=== PATIENT | female | born 1960 | race African-American/Black ===

== ENCOUNTER 2016-07-30 06:46 | Emergency (ER) | payer BC ==
[~2016-07-30] VITALS: Ht 162.6 cm; Wt 126.0 kg
[~2016-07-30 06:46] MED LIST: ALBU1AER9 INH; ATOR-24 PO; BENZ1CAP90 PO; BUDESUS NAE; GLC/500 PO; HYDR25TA4 PO; IPRA1AER2 INH; IPRASOL4 INH; LOSA50TA6 PO; MONT1TAB5 PO; NRV/10 PO; OXGN; OXYC1TAB3 PO; PANT1TAB48 PO
[2016-07-30 06:50] VITALS: Ht 162.6 cm; Wt 126.0 kg
[2016-07-30] MEDS ORDERED: METH750T PO (07:16)
[2016-07-30] MEDS ORDERED: TRAM-10 PO (07:17)
[2016-07-30] MEDS ORDERED: KETOROLAC TROMETHAMINE 60 MG/2 ML VIAL IM STA (07:19)
[2016-07-30] MEDS ORDERED: QVAR 40MCG INH (07:19)
--- NOTE | 2016-07-30 07:35 | EMERGENCY ROOM VISIT NOTE ---
History Report prepared by Justus: Elena Zavala Under the Supervision of: Dr. Randal Dior M.D. First contact with patient: 07:14 Chief Complaint: KNEEPAIN Stated Complaint: KNEE PAIN-BOTH KNEES -RIGHT IS THE WORST History of Present Illness The patient is a 56 year old female who presents to the Emergency Room with complaints of persistent, right knee pain that began six months ago, but has recently been worsening. She currently rates her discomfort as a 10/10 in severity. The patient states that she had a mass to her right leg that has been growing for the past two years. She states that she had the mass evaluated by a doctor at [facility] and notes that she had an MRI. The patient states that there were not malignancies found in the mass, but states that it has added weight to her right knee. She states that the pain has been worsening for the past six months. The patient states that she had discussion with her doctors about possible surgery to remove the mass, but states that with her history of diabetes, the doctors feel that she is at a higher risk. She states that the doctors want her to lose more weight but notes that it has been difficult due to difficulties ambulating. The patient states that the doctors plan to reevaluate the situation in October and is scheduled to see a plastic surgeon. She states that the increased weight is causing pain to her right knee and additionally notes that she is unsure of her history of arthritis. The patient states that she could not go to work today due to the pain. She denies any difficulty urinating. The patient states that she tried taking Excedrin for her discomfort today without relief, and states that she previously was on oxycodone for her back, but states that she wishes to not have any narcotic pain medications. Source of History: patient Onset: six months ago Position: knee (right) Symptom Intensity: 10/10 Timing: worsening, other (persistent) Modifying Factors (Worsening): other (mass to right thigh) Review of Systems All systems have been listed, reviewed, and are negative other than those previously mentioned. Please see Additional Medical History Sheet. Past Medical & Surgical Medical Problems: (1) Asthma (2) Asthma exacerbation (3) Diabetes (4) Hypertension (5) Pneumonia Family History Cancer Diabetes mellitus Hypertension Social History Smoking Status: Never Smoker Alcohol Use: none Drug Use: none Marital Status: Housing Status: lives with significant other Occupation Status: employed Current/Historical Medications Scheduled Amlodipine Besylate (Amlodipine Besy), 5 MG PO DAILY Atorvastatin (Lipitor), 40 MG PO DAILY Budesonide (Rhinocort Aq Nasal ), 2 SPRAY CECIILA DAILY Hydrochlorothiazide (Hctz), 25 MG PO DAILY Ipratropium-Albuterol (Combivent Respimat), 1 PUFF INH QID Losartan Potassium (Cozaar), 50 MG PO DAILY Metformin Hcl (Glucophage), 500 MG PO BID Methocarbamol (Robaxin), 750 MG PO DAILY Montelukast Sodium (Montelukast Sodium), 10 MG PO HS Oxygen (Oxygen), 2 LITERS NA HS Pantoprazole (Protonix), 40 MG PO DAILY [Qvar 40MCG], 2 PUFF INH BID Scheduled PRN Benzonatate (Tessalon Perles), 200 MG PO TID PRN for Cough Ibuprofen Tab (Motrin), 600 MG PO Q6H PRN for Pain Ipratropium-Albuterol (Duoneb), 1 TREATMENT INH QID PRN for SOB/Wheezing Tramadol (Ultram), 50 MG PO Q6H PRN for Pain Allergies Coded Allergies: Penicillins (Verified Allergy, Mild, RASH, 09/10/15) Physical Exam Vital Signs Date Time Temp Pulse Resp B/P Pulse Ox O2 Delivery O2 Flow Rate FiO2 07/30/16 08:48 36.9 66 20 129/75 99 07/30/16 08:21 66 20 129/75 99 Room Air 07/30/16 06:50 36.9 108 18 110/59 95 Room Air Physical Exam GENERAL: Patient awake, alert, oriented x 3. Patient follows commands. Patient does not appear toxic. Patient is adequately hydrated and well- nourished. SKIN: No erythema, pallor, cyanosis or rash HEENT: Normal head, pupils equal, reactive to light and accommodation. EXTREMITIES: Huge mass extending off upper right thigh that is hard and firm, but no drainage. Full range of motion of right knee with minimal pain. No inflammation or swelling. Some pain with movement. NEUROLOGIC: Cranial nerves II-XII within normal limits. No gross motor sensory function deficits. Medical Decision & Procedures ER Provider Diagnostic Interpretation: X ray results are stated below per my interpretation and the radiologist's interpretation. RIGHT KNEE 1 OR 2 VIEWS ROUTINE CLINICAL HISTORY: knee pain Right COMPARISON STUDY: None. FINDINGS: No acute fracture dislocation within the right knee. Severe tricompartmental osteoarthritis demonstrated by cartilage space narrowing and large marginal osteophytes. There is anterior soft tissue swelling. No significant knee effusion. IMPRESSION: 1. Severe tricompartmental osteoarthritis within the right knee. 2. No acute fracture or dislocation. 3. Anterior soft tissue swelling. 4. No significant knee effusion. Electronically signed by: Ramiro Rodrigues M.D. 07/30/2016 7:53 AM Dictated Date/Time: 07/30/2016 7:51 AM Medications Administered Medications (Trade) Dose Ordered Sig/Polo Route Start Time Stop Time Status Last Admin Dose Admin Ketorolac Tromethamine (Toradol Inj) 60 mg NOW STAT IM 07/30/16 07:19 07/30/16 07:21 DC 07/30/16 07:26 60 MG ED Course 0714: Past medical records reviewed. The patient was evaluated in room A10. A complete history and physical examination was performed. 0719: Ordered Toradol Inj 60 mg IM. 0836: I reevaluated the patient and she is feeling much better after the shot of Toradol. I discussed the exam findings with her and I discussed the treatment plan. She verbalized complete understanding and agreement. She is ready to go home. Medical Decision Nurses notes reviewed. Medical history sheet reviewed. Differential diagnosis includes but is not limited to: degenerative joint disease, sprain, meniscal injury, mass on right leg. The patient has a huge mass extending off of the upper right leg which is chronic. X-ray reveals significant arthritis of the right knee. She did get good relief from IM Toradol. She will be maintained on ibuprofen at home. Also the patient will require excision of this mass which is complicating her osteoarthritis. At some point in the future she may also need a knee replacement. I discussed these options with the patient and her . Impression Primary Impression: Osteoarthritis of right knee Scribe Attestation The scribe's documentation has been prepared under my direction and personally reviewed by me in its entirety. I confirm that the note above accurately reflects all work, treatment, procedures, and medical decision making performed by me. Departure Information Dispostion Home / Self-Care Prescriptions Ibuprofen Tab (MOTRIN) 600 Mg Tab 600 MG PO Q6H Y for Pain, #40 TAB Prov: Ziff, Randal,M.D. 07/30/16 Referrals KT QUINTERO M.D. (PCP) Forms HOME CARE DOCUMENTATION FORM, IMPORTANT VISIT INFORMATION, Work Instructions Patient Instructions A Signature Page, [facility] Additional Instructions 600 mg of ibuprofen every 6 hours as needed for right knee pain. Follow-up with your family physician. Follow-up with your surgeon at [facility]. Work Instructions Return To Work: 3 days Specific Date: 08/02/16
--- NOTE | 2016-07-30 07:55 | DIAGNOSTIC IMAGING REPORT ---
RIGHT KNEE 1 OR 2 VIEWS ROUTINE CLINICAL HISTORY: knee pain Right COMPARISON STUDY: None. FINDINGS: No acute fracture dislocation within the right knee. Severe tricompartmental osteoarthritis demonstrated by cartilage space narrowing and large marginal osteophytes. There is anterior soft tissue swelling. No significant knee effusion. IMPRESSION: 1. Severe tricompartmental osteoarthritis within the right knee. 2. No acute fracture or dislocation. 3. Anterior soft tissue swelling. 4. No significant knee effusion. Electronically signed by: Ramiro Rodrigues M.D. 07/30/2016 7:53 AM Dictated Date/Time: 07/30/2016 7:51 AM
[2016-07-30] MEDS ORDERED: IBUP-1427 PO (08:44)
[2016-07-30 08:48] VITALS: BP 129/75; PULSE 66; TEMP 36.9; O2SAT 99
[2017-02-23] MEDS ORDERED: FURO-85 PO (08:23)
[2017-04-16] MEDS ORDERED: SULF800T23 PO (09:59)
== END 2016-07-30 08:48 | disposition home or self-care (01) ==
LOC: C.EDB 06:48 → C.EDA 08:48
DX: M17.11 Unilateral primary osteoarthritis, right knee (principal); E11.9 Type 2 diabetes mellitus without complications; J45.901 Unspecified asthma with (acute) exacerbation; I10 Essential (primary) hypertension; R22.41 Localized swelling, mass and lump, right lower limb; Z79.84 Long term (current) use of oral hypoglycemic drugs; Z79.899 Other long term (current) drug therapy

== ENCOUNTER 2016-08-26 06:44 | Emergency (ER) | payer BC ==
[~2016-08-26] VITALS: Ht 162.6 cm; Wt 128.0 kg
[~2016-08-26 06:44] MED LIST changes: -ALBU1AER9 INH; +IBUP-1427 PO; +METH750T PO; -OXYC1TAB3 PO; +QVAR 40MCG INH; +TRAM-10 PO
[2016-08-26 06:51] VITALS: TEMP 37; Ht 162.6 cm; Wt 128.0 kg
[2016-08-26] MEDS ORDERED: ALUMINUM/MAGNESIUM SUSP 30 ML UDC PO STA (07:35)
[2016-08-26] MEDS ORDERED: SODIUM CHLORIDE 0.9% 1000ML 1,000 ML IV STA (07:35)
[2016-08-26] MEDS ORDERED: LIDOCAINE HCL 2% VISC SOLN 20 ML UDC MT STA (07:35)
[2016-08-26] MEDS ORDERED: SODIUM CHLORIDE 0.9% 1000ML 250 ML IV STA (07:35)
--- NOTE | 2016-08-26 07:36 | EMERGENCY ROOM VISIT NOTE ---
History Report prepared by Antonioibhardik: Missy Rodriguez Under the Supervision of: Dr. Fred Sainz M.D. First contact with patient: 06:58 Chief Complaint: ABDOMINAL PAIN Stated Complaint: STOMACH PAIN,CHILLS,FLU-LIKE SYMPTOMSA History of Present Illness The patient is a 56 year old female who presents to the Emergency Room with complaints of intermittent lower abdominal pain for the past 1 week. She is accompanied by her . She rates her discomfort as an 8/10. She reports she takes the Tramadol for a history of left shoulder and right knee arthritic pain and states "ever since I've been on pain medications, my stomach has been upset". She has been experiencing abdominal pain for approximately the past 12 weeks, but states in the past week, her pain has worsened. When she does not use Tramadol, she uses Ibuprofen, but notes "it doesn't provide much relief". The patient complains of nausea, but denies any vomiting or diarrhea. She denies any recent changes to her other medications. She denies any history of previous abdominal surgeries. She admits to some recent chills and flu-like symptoms, but denies any fevers, shortness of breath, chest pain, urinary symptoms or pain or swelling in her legs. Source of History: patient Onset: 1 week [employer] Position: abdomen Symptom Intensity: 8/10 Timing: intermittent Modifying Factors (Worsening): other (use of Tramadol) Associated Symptoms: + chills, + nausea, No SOB, No chest pain, No diarrhea , No fevers, No urinary symptoms, No vomiting Review of Systems See HPI for pertinent positives & negatives. A total of 10 systems reviewed and were otherwise negative. Past Medical & Surgical Medical Problems: (1) Asthma (2) Asthma exacerbation (3) Diabetes (4) Hypertension (5) Pneumonia Family History Cancer Diabetes mellitus Hypertension Social History Smoking Status: Never Smoker Alcohol Use: none Drug Use: none Marital Status: Housing Status: lives with significant other Occupation Status: employed Current/Historical Medications Scheduled Amlodipine Besylate (Amlodipine Besylate), 5 MG PO DAILY Atorvastatin (Lipitor), 40 MG PO DAILY Beclomethasone Dip (Qvar), 1 PUFF INH BID Budesonide (Nasal) (Rhinocort Allergy), 2 SPRAYS CECILIA DAILY Hydrochlorothiazide (Hctz), 25 MG PO DAILY Ipratropium-Albuterol (Combivent Respimat), 1 PUFF INH QID Losartan Potassium (Cozaar), 50 MG PO DAILY Metformin Hcl (Glucophage), 500 MG PO BID Methocarbamol (Robaxin), 750 MG PO DAILY Montelukast Sodium (Montelukast Sodium), 10 MG PO HS Oxygen (Oxygen), 2 LITERS NA HS Pantoprazole (Protonix), 40 MG PO DAILY Scheduled PRN Benzonatate (Tessalon Perles), 200 MG PO TID PRN for Cough Ibuprofen Tab (Motrin), 600 MG PO Q6H PRN for Pain Ipratropium-Albuterol (Duoneb), 1 TREATMENT INH QID PRN for SOB/Wheezing Oxycodone Ir (Roxicodone Ir), 1-2 TAB PO Q4H PRN for Severe Pain Tramadol (Ultram), 50 MG PO Q6H PRN for Pain Allergies Coded Allergies: Penicillins (Verified Allergy, Mild, RASH, 08/26/16) Latex1 -Allergic Contact Dermititis (Verified Allergy, Unknown, rash, ) Physical Exam Vital Signs Date Time Temp Pulse Resp B/P Pulse Ox O2 Delivery O2 Flow Rate FiO2 08/26/16 11:52 68 20 128/70 98 08/26/16 10:28 72 20 122/75 96 Room Air 08/26/16 08:23 66 20 138/76 100 Room Air 08/26/16 06:51 37.0 66 16 149/87 100 Room Air Physical Exam General: Non-ill appearing middle aged female, well developed, well nourished, in no acute distress, breathing comfortably on room air. Normal speech. HEENT: Normal cephalic atraumatic. Pupils are equal round and reactive to light. Extraocular movements are intact. Oropharynx is pink with moist mucous membranes. No swelling of the mouth lips or tongue. Neck: Supple with a midline trachea. No meningeal signs or stiffness, no JVD or bruits. No Stridor. Chest: Clear to auscultation bilaterally. No wheezes or rhonchi. No increased work of breathing. Heart: regular rate and rhythm. Abdomen: Soft, minimal tenderness around umbilicus, nondistended without rebound guarding or rigidity. Extremities: No cyanosis clubbing or edema. No calf tenderness or assymetry Spine/Back. Non tender to palpation. No CVA tenderness Skin: Good turgor without rashes. Neurologic exam: Cranial nerves two through 12 are intact. Motor and sensation are intact and symmetrical throughout. Medical Decision & Procedures ER Provider Diagnostic Interpretation: This CT scan was reviewed and interpreted by the radiologist and reviewed by myself. ABDOMEN AND PELVIS CT WITH IV CONTRAST IMPRESSION: 1. 5 cm right ovarian cyst. 2. Fibroid-type uterus with the largest measuring 4 cm. 3. Nonobstructive bowel pattern. 4. Slight body wall anasarca Electronically signed by: Elmo Buchanan M.D. 08/26/2016 9:28 AM Laboratory Results 08/26/16 07:58 Red Blood Count 4.29, Mean Corpuscular Volume 85.8, Mean Corpuscular Hemoglobin 28.0, Mean Corpuscular Hemoglobin Concent 32.6, Mean Platelet Volume 10.3, Neutrophils (%) (Auto) 69.8, Lymphocytes (%) (Auto) 20.0, Monocytes (%) (Auto) 7.9, Eosinophils (%) (Auto) 1.7, Basophils (%) (Auto) 0.4, Neutrophils # (Auto) 3.29, Lymphocytes # (Auto) 0.94, Monocytes # (Auto) 0.37, Eosinophils # (Auto) 0.08, Basophils # (Auto) 0.02 08/26/16 07:58 Test 08/26/16 07:58 08/26/16 08:00 08/26/16 08:10 White Blood Count 4.71 K/uL (4.8-10.8) Red Blood Count 4.29 M/uL (4.2-5.4) Hemoglobin 12.0 g/dL (12.0-16.0) Hematocrit 36.8 % (37-47) Mean Corpuscular Volume 85.8 fL (80-100) Mean Corpuscular Hemoglobin 28.0 pg (25-34) Mean Corpuscular Hemoglobin Concent 32.6 g/dl (32-36) Platelet Count 234 K/uL (130-400) Mean Platelet Volume 10.3 fL (7.4-10.4) Neutrophils (%) (Auto) 69.8 % Lymphocytes (%) (Auto) 20.0 % Monocytes (%) (Auto) 7.9 % Eosinophils (%) (Auto) 1.7 % Basophils (%) (Auto) 0.4 % Neutrophils # (Auto) 3.29 K/uL (1.4-6.5) Lymphocytes # (Auto) 0.94 K/uL (1.2-3.4) Monocytes # (Auto) 0.37 K/uL (0.11-0.59) Eosinophils # (Auto) 0.08 K/uL (0-0.5) Basophils # (Auto) 0.02 K/uL (0-0.2) RDW Standard Deviation 49.0 fL (36.4-46.3) RDW Coefficient of Variation 15.4 % (11.5-14.5) Immature Granulocyte % (Auto) 0.2 % Immature Granulocyte # (Auto) 0.01 K/uL (0.00-0.02) Anion Gap 11.0 mmol/L (3-11) Est Creatinine Clear Calc Drug Dose 135.0 ml/min Estimated GFR () 116.6 Estimated GFR (Non- 100.6 BUN/Creatinine Ratio 13.6 (10-20) Calcium Level 8.9 mg/dl (8.5-10.1) Total Bilirubin 0.7 mg/dl (0.2-1) Direct Bilirubin 0.2 mg/dl (0-0.2) Aspartate Amino Transf (AST/SGOT) 12 U/L (15-37) Alanine Aminotransferase (ALT/SGPT) 14 U/L (12-78) Alkaline Phosphatase 62 U/L (45-117) Total Protein 7.3 gm/dl (6.4-8.2) Albumin 3.5 gm/dl (3.4-5.0) Lipase 86 U/L (73-393) Urine Color YELLOW Urine Appearance CLEAR (CLEAR) Urine pH 7.0 (4.5-7.5) Urine Specific [place] 1.013 (1.000-1.030) Urine Protein NEG (NEG) Urine Glucose (UA) NEG (NEG) Urine Ketones NEG (NEG) Urine Occult Blood NEG (NEG) Urine Nitrite NEG (NEG) Urine Bilirubin NEG (NEG) Urine Urobilinogen NEG (NEG) Urine Leukocyte Esterase NEG (NEG) Bedside Troponin I 0.030 ng/ml (0-0.045) Date/Time Source Procedure Growth Status 08/26/16 08:00 Urine , Clean Catch Urine Culture - Final MORE THAN THREE TYPES OF ORGANISMS CA... Complete Laboratory studies as stated above per my review. Medications Administered Medications (Trade) Dose Ordered Sig/Polo Route Start Time Stop Time Status Last Admin Dose Admin Sodium Chloride 250 ml @ 999 mls/hr Q16M STAT IV 08/26/16 07:35 08/26/16 07:50 DC 08/26/16 07:35 999 MLS/HR Sodium Chloride (Nss 1000ml) 1,000 ml @ 100 mls/hr Q10H STAT IV 08/26/16 07:35 08/26/16 12:38 DC 08/26/16 07:35 100 MLS/HR Al Hydroxide/Mg Hydroxide (Maalox Susp) 30 ml NOW STAT PO 08/26/16 07:35 08/26/16 07:38 DC 08/26/16 08:23 30 ML Lidocaine HCl (Viscous Lidocaine 2% Soln) 10 ml NOW STAT MT 08/26/16 07:35 08/26/16 07:38 DC 08/26/16 07:35 10 ML ECG Indication: abdominal pain Rate (beats per minute): 64 Rhythm: normal sinus (normal sinus rhythm) Findings: no acute ischemic change, other (Low voltage QRS, poor R-wave progression) Comparison ECG Date: Compared to EKG from September 10, 2015, rate has decreased ED Course 0728: Past medical records reviewed. The patient was evaluated in room A3, and a complete history and physical examination were performed. 1108: I reevaluated the patient. She is feeling well and resting comfortably. Medical Decision Differential Diagnoses: GERD, colitis, pancreatitis, gallbladder disease, UTI and peptic ulcer disease. This patient comes in as described above. She's had some epigastric abdominal pain. She's had a burning sensation. She is on a proton pump inhibitor but does not take it regularly. She is taking a fair amount of pain medication for her hip and joints. She takes Ultram and ibuprofen. Multiple blood testing was obtained. She has nothing to suggest infection or sepsis. CAT scan was unremarkable she has nothing to suggest acute cardiac event or ischemia. I encouraged her to take her to take her proton pump inhibitor regularly and to try to minimize the Ultram and ibuprofen. Follow up with her regular doctor in 1-2 days for recheck. Return if: increasing pain, worsening of symptoms, fever chills, any problems concerns. She is happy plan and discharged to home. Impression Primary Impression: Epigastric abdominal pain Scribe Attestation The scribe's documentation has been prepared under my direction and personally reviewed by me in its entirety. I confirm that the note above accurately reflects all work, treatment, procedures, and medical decision making performed by me. Departure Information Dispostion Home / Self-Care Referrals KT QUINTERO M.D. (PCP) Patient Instructions My [facility] Additional Instructions Rest. Drink plenty of fluids. Mild diet. Ensure that you're taking her Protonix once a day. This will help decrease her acid May use [id number] Maalox or Tums or other antacids Try taking medicine with food May use Tylenol (acetaminophen)-a maximum of 2 pills (650 mg) every 6 hours. Ensure you do not take this with any other medications containing acetaminophen/ Tylenol Follow-up with your doctor early this week for recheck. You may ultimately need to see a GI specialist if her symptoms persist or worsen. Return to the ER any point if symptoms worsen, increasing pain, fever or chills , worsening of symptoms, any new problems or concerns.
[2016-08-26 08:11] LABS: BASO % 0.4 %; BASO ABS # 0.02 K/uL (0-0.2); COMPLETE YES; EOS % 1.7 %; HEMATOCRIT 36.8 % (37-47); IG% 0.2 %; LYMPH ABS # 0.94 K/uL (1.2-3.4); MEAN CELL VOLUME 85.8 fL (80-100); MEAN CORPUSCULAR HGB CONC 32.6 g/dl (32-36); MEAN PLATELET VOLUME 10.3 fL (7.4-10.4); MONO % 7.9 %; NEUT % 69.8 %; PLATELET COUNT 234 K/uL (130-400); RED BLOOD COUNT 4.29 M/uL (4.2-5.4); WHITE BLOOD COUNT 4.71 K/uL (4.8-10.8)
[2016-08-26 08:30] LABS: URINE APPEARANCE CLEAR (CLEAR); URINE BILIRUBIN NEG (NEG); URINE COLOR YELLOW; URINE NITRITE NEG (NEG); URINE SPECIFIC GRAVITY 1.013 (1.000-1.030); UROBILINOGEN NEG (NEG)
[2016-08-26] MEDS ORDERED: QVRINH40 INH (08:31)
[2016-08-26] MEDS ORDERED: BUDE1SUS8 NAE (08:31)
[2016-08-26] MEDS ORDERED: NRV/5 PO (08:31)
[2016-08-26 08:42] LABS: BUN/CREATININE RATIO 13.6 (10-20); CREATININE 0.61 mg/dl (0.60-1.20)
[2016-08-26 08:45] LABS: POTASSIUM 3.6 mmol/L (3.5-5.1)
[2016-08-26 08:46] LABS: CALCIUM 8.9 mg/dl (8.5-10.1)
[2016-08-26 08:50] LABS: MANUAL MICROSCOPIC REQUIRED? NO; REVIEW REQ? NO
[2016-08-26] MEDS ORDERED: OPTIRAY 320 IV PRN (09:00)
--- NOTE | 2016-08-26 09:30 | DIAGNOSTIC IMAGING REPORT ---
ABDOMEN AND PELVIS CT WITH IV CONTRAST CT DOSE: 1104.92 mGy.cm HISTORY: Pain eval for diverticulitis, colitis TECHNIQUE: Multiaxial CT images of the abdomen and pelvis were performed following the use of intravenous contrast. COMPARISON STUDY: 11/17/2013 FINDINGS: Minimal dependent basilar atelectasis. Liver is uniform. Spleen and pancreas are unremarkable. Kidneys enhance uniformly. No evidence for hydronephrosis. Small fat-containing periumbilical hernia unchanged. This is a nonobstructive finding. Fibroid-type uterus. 5 cm right ovarian cyst. Bladder is midline. No free fluid within the cul-de-sac. Inguinal regions are unremarkable. Slight body wall anasarca. This is diminished in the prior study. IMPRESSION: 1. 5 cm right ovarian cyst. 2. Fibroid-type uterus with the largest measuring 4 cm. 3. Nonobstructive bowel pattern. 4. Slight body wall anasarca Electronically signed by: Elmo Buchanan M.D. 08/26/2016 9:28 AM Dictated Date/Time: 08/26/2016 9:25 AM
[2016-08-26 11:52] VITALS: BP 128/70; PULSE 68; O2SAT 98
[2017-02-23] MEDS ORDERED: FURO-85 PO (08:23)
[2017-04-16] MEDS ORDERED: SULF800T23 PO (09:59)
== END 2016-08-26 11:54 | disposition home or self-care (01) ==
LOC: C.EDB 06:45 → C.EDA 11:54
DX: R10.13 Epigastric pain (principal); J45.909 Unspecified asthma, uncomplicated; I10 Essential (primary) hypertension; E11.9 Type 2 diabetes mellitus without complications

== ENCOUNTER 2016-08-28 05:36 | Emergency (ER) | payer BC ==
[~2016-08-28] VITALS: Ht 162.6 cm; Wt 129.1 kg
[~2016-08-28 05:36] MED LIST changes: +BUDE1SUS8 NAE; -BUDESUS NAE; -NRV/10 PO; +NRV/5 PO; -QVAR 40MCG INH; +QVRINH40 INH
[2016-08-28 05:41] VITALS: TEMP 36.7; Ht 162.6 cm; Wt 129.1 kg
[2016-08-28] MEDS ORDERED: KETOROLAC TROMETHAMINE 30 MG/ML VIAL IV STA (06:23)
[2016-08-28] MEDS ORDERED: HYDROmorphone INJ 2 MG/ML SYR/VIAL IV STA (06:23)
--- NOTE | 2016-08-28 06:24 | EMERGENCY ROOM VISIT NOTE ---
History Report prepared by Justus: Martin Carmona Under the Supervision of: Dr. Valentine Paredes D.O. First contact with patient: 05:45 Chief Complaint: HIP PAIN Stated Complaint: EXCRUCIATING PAIN IN HIP,DOWN TO KNEE ON RT SIDE History of Present Illness The patient is a 56 year old female who presents to the Emergency Room with complaints of worsening right hip pain that began a week ago. She awoke this morning crying from the pain that she states is very severe. The patient has a large soft tissue mass on her right inner thigh. Her surgeon told her that before they remove it, she should try to lose some weight. The patient lost some weight, but she feels like the growth is weighing her down significantly and exacerbating her arthritis in her right knee and giving her worst pain in her right hip. The patient has been having nausea and vomiting from the pain. She denies any rash or diarrhea. Source of History: patient Onset: a week ago Position: other (right hip) Symptom Intensity: severe Quality: ache Timing: worsening Associated Symptoms: + back pain, + nausea, + vomiting, No diarrhea, No rash Review of Systems See HPI for pertinent positives & negatives. A total of 10 systems reviewed and were otherwise negative. Past Medical & Surgical Medical Problems: (1) Asthma (2) Asthma exacerbation (3) Diabetes (4) Hypertension (5) Pneumonia Family History Cancer Diabetes mellitus Hypertension Social History Smoking Status: Never Smoker Alcohol Use: none Drug Use: none Marital Status: Housing Status: lives with significant other Occupation Status: employed Current/Historical Medications Scheduled Amlodipine Besylate (Amlodipine Besylate), 5 MG PO DAILY Atorvastatin (Lipitor), 40 MG PO DAILY Beclomethasone Dip (Qvar), 1 PUFF INH BID Budesonide (Nasal) (Rhinocort Allergy), 2 SPRAYS CECILIA DAILY Hydrochlorothiazide (Hctz), 25 MG PO DAILY Ipratropium-Albuterol (Combivent Respimat), 1 PUFF INH QID Losartan Potassium (Cozaar), 50 MG PO DAILY Metformin Hcl (Glucophage), 500 MG PO BID Methocarbamol (Robaxin), 750 MG PO DAILY Montelukast Sodium (Montelukast Sodium), 10 MG PO HS Oxygen (Oxygen), 2 LITERS NA HS Pantoprazole (Protonix), 40 MG PO DAILY Scheduled PRN Benzonatate (Tessalon Perles), 200 MG PO TID PRN for Cough Ibuprofen Tab (Motrin), 600 MG PO Q6H PRN for Pain Ipratropium-Albuterol (Duoneb), 1 TREATMENT INH QID PRN for SOB/Wheezing Oxycodone Ir (Roxicodone Ir), 1-2 TAB PO Q4H PRN for Severe Pain Tramadol (Ultram), 50 MG PO Q6H PRN for Pain Allergies Coded Allergies: Penicillins (Verified Allergy, Mild, RASH, 08/26/16) Latex1 -Allergic Contact Dermititis (Verified Allergy, Unknown, rash, ) Physical Exam Vital Signs Date Time Temp Pulse Resp B/P Pulse Ox O2 Delivery O2 Flow Rate FiO2 08/28/16 07:21 70 18 144/76 93 Room Air 08/28/16 06:11 60 18 137/80 99 Room Air 08/28/16 05:41 36.7 62 18 148/90 99 Room Air Physical Exam HEENT: Head - normocephalic and atraumatic Pupils are equal, round, and reactive to light. Extraocular eye muscles are intact, and sclera are anicteric. Nose - moist nasal mucosa without discharge. Mouth - moist buccal mucosa. Oropharynx is nonerythematous and there is no tonsillar exudate or edema noted. Neck: Supple; no JVD, nuchal rigidity, cervical lymphadenopathy. Heart: Heart sounds are distant secondary to the patient's body habitus. Regular rate and rhythm. There is a normal S1 and S2 with no murmurs, clicks, or gallops appreciated. Lungs: Clear to auscultation bilaterally with no wheezes, rales, or rhonchi. Abdomen: Soft, completely nontender, nondistended, with good bowel sounds. There are no palpable pulsatile masses or hepatosplenomegaly. There is no guarding, rigidity, or rebound noted. Extremities: No evidence of cyanosis, clubbing, or edema. There are easily palpable peripheral pulses. Significant lymphedema to both legs. There is a large soft tissue mass on the medial aspect of the right thigh. The patient does have pain with palpation in the right groin and right hip area. Skin: warm and dry with good turgor and no rashes. Medical Decision & Procedures Medications Administered Medications (Trade) Dose Ordered Sig/Polo Route Start Time Stop Time Status Last Admin Dose Admin Ketorolac Tromethamine (Toradol Inj) 30 mg NOW STAT IV 08/28/16 06:23 08/28/16 06:25 DC 08/28/16 06:23 30 MG Hydromorphone HCl (Dilaudid Inj) 2 mg NOW STAT IV 08/28/16 06:23 08/28/16 06:25 DC 08/28/16 06:23 2 MG Ondansetron HCl (Zofran Inj) 4 mg STK-MED ONCE .ROUTE 08/28/16 06:40 08/28/16 06:42 DC 08/28/16 06:40 4 MG Procedure Dilaudid Inj 2 mg IV Toradol Inj 30 mg IV Zofran 4 mgIV ED Course 0545: Past medical records reviewed. The patient was evaluated in room A9. A complete history and physical exam was performed. An IV lock was initiated 0623: Dilaudid Inj 2 mg IV, Toradol Inj 30 mg IV 0640: The patient began to feel nauseated. She was given Zofran 4 mg IV. 0714: The patient feels much better. 0723: Upon reevaluation, the patient is resting comfortably. I discussed findings and results with her. She verbalized agreement of the treatment plan. She was discharged home. Medical Decision The patient is a 56 year old male who presents to the ED with right hip pain. Differential diagnosis includes musculoskeletal pain, bursitis of the right hip , inguinal hernia, or sciatica. The patient does describe having some chronic discomfort in the right hip and right low back as a result of this large mass which she states has been estimated to weigh more than 60 pounds. I did not think that hip x-rays would be of much benefit. She is currently scheduled to have the mass removed next week. I have provided her with IV pain medication here in the emergency department and she is quite comfortable at this time. I will prescribe her OxyIR to use at home until she can follow up with her PCP and/or surgeon. She was told to return to the emergency department if symptoms worsened. [place] Drug Monitoring Program Search Results: patient reviewed within database, no issues identified Impression Primary Impression: Right hip pain Scribe Attestation The scribe's documentation has been prepared under my direction and personally reviewed by me in its entirety. I confirm that the note above accurately reflects all work, treatment, procedures, and medical decision making performed by me. Departure Information Dispostion Home / Self-Care Prescriptions Oxycodone Ir (Roxicodone Ir) 5 Mg Tab 1-2 TAB PO Q4H Y for Severe Pain, #20 TAB Prov: Valentine Paredes D.O. 08/28/16 Referrals KT QUINTERO M.D. (PCP) Forms HOME CARE DOCUMENTATION FORM, IMPORTANT VISIT INFORMATION, SPECIAL NARCOTICS INSTRUCTIONS, WORK / SCHOOL INSTRUCTIONS Patient Instructions My [facility] Additional Instructions Rest. Oxycodone - 1- 2 tabs. every 4-6 hours for pain. No work on Sunday or Sunday Follow up with PCP or surgeon for chronic pain management
[2016-08-28] MEDS ORDERED: ONDANSETRON INJ 2 MG/ML 2 ML VIAL ONE (06:40)
[2016-08-28 07:21] VITALS: BP 144/76; PULSE 70; O2SAT 93
[2016-08-28] MEDS ORDERED: OXYC1TAB3 PO (07:21)
[2017-02-23] MEDS ORDERED: FURO-85 PO (08:23)
[2017-04-16] MEDS ORDERED: SULF800T23 PO (09:59)
== END 2016-08-28 07:39 | disposition home or self-care (01) ==
LOC: C.EDB 05:37 → C.EDA 07:39
DX: M25.551 Pain in right hip (principal); J45.909 Unspecified asthma, uncomplicated; E11.9 Type 2 diabetes mellitus without complications; I10 Essential (primary) hypertension; Z99.81 Dependence on supplemental oxygen

== ENCOUNTER 2023-05-02 01:21 | Inpatient (IN) ==
[2023-05-02] MEDS ORDERED: ALBUT/IPRATROP 3MG/0.5MG NEB 3 ML VIAL NEB STA (01:47)
[2023-05-02] MEDS ORDERED: FUROSEMIDE 40 MG/4 ML VIAL IV ONE (02:02)
[2023-05-02 02:05] LABS: iSTAT Hemoglobin 14.3 g/dl (12.0-16.0); iSTAT Ionized Calcium 1.04 mmol/l (1.12-1.32)
[2023-05-02] MEDS ORDERED: CEFEPIME 2,000 MG/20 ML VIAL IV STA (02:09)
[2023-05-02] MEDS ORDERED: NITROGLYCERIN SL 0.4 MG/TAB TAB SL STA (02:09)
[2023-05-02 02:12] LABS: Basophils # (auto) 0.05 K/uL (0.00-0.20); Eosinophils # (auto) 0.03 K/uL (0.00-0.50); Eosinophils % (auto) 0.6 %; Hematocrit (blood only) 38.9 % (37.0-47.0); Immature Granulocytes # (auto) 0.03 K/uL (0.01-0.20); Immature Granulocytes % (auto) 0.6 %; Lymphocytes # (auto) 0.78 K/uL (1.20-3.40); Lymphocytes % (auto) 16.1 %; Mean Corpuscular Hemoglobin 28.6 pg (25.0-34.0); Mean Corpuscular Hgb Conc 30.8 g/dL (32.0-36.0); Mean Corpuscular Volume 92.6 fL (80.0-100.0); Mean Platelet Volume 11.5 fL (9.4-12.4); Monocytes # (auto) 0.41 K/uL (0.11-0.59); Monocytes % (auto) 8.5 %; Neutrophils # (auto) 3.54 K/uL (1.40-6.50); Neutrophils % (auto) 73.2 %; Platelet Count 153 K/uL (130-400); RDW Coefficient of Variation 19.7 % (11.5-14.5); White Blood Count 4.84 K/ul (4.8-10.8)
--- NOTE | 2023-05-02 02:19 | Emergency Department Note ---
History of Present Illness General Chief complaint: Shortness of Breath/Dyspnea Time Seen by Provider: 05/02/23 01:26 History of Present Illness This 62-year-old female that is not left her home in 3 years presents the ER for shortness of breath for the past month steadily getting worse. Patient does not smoke. Patient states she has worsening difficulty breathing and facial swelling. Patient does complain of some chest discomfort. Patient denies fever, chills, headache, neck stiffness, abdominal pain. Patient has not open source decubitus ulcers to her back and a wound culture was taken. She has a h istory of heart failure per patient. No prior heart attack or stroke. Home Medications Medication Instructions Recorded Confirmed Type losartan 100 mg tablet 100 mg PO QPM 08/02/18 05/02/23 History rosuvastatin 10 mg tablet (Crestor) 10 mg PO QAM 08/02/18 05/02/23 History aspirin 81 mg tablet,delayed 81 mg PO DAILY 05/02/23 05/02/23 History release duloxetine 30 mg capsule,delayed 30 mg PO QAM 05/02/23 05/02/23 History release ipratropium 0.5 mg-albuterol 3 mg 3 ml inhalation Q4 PRN 05/02/23 05/02/23 H istory (2.5 mg base)/3 mL nebulization cough,SOB,wheezing soln montelukast 10 mg tablet 10 mg PO HS 05/02/23 05/02/23 History pantoprazole 40 mg tablet,delayed 40 mg PO DAILYBB 05/02/23 05/02/23 History release Allergies Allergy/AdvReac Type Severity Reaction Status Date / Time Penicillins Allergy Mild RASH Verified 08/21/18 07:52 latex Allergy Unknown rash Verified 08/21/18 07:52 Past Med/Surg History Medical History Asthma RARELY USES INH/NEB Degenerative disc disease Diabetes mellitus, type 2 Hyperlipidemia Hypertension Lymphedema Morbid obesity Osteoarthritis Sleep apnea CPAP Uterine fibroid Surgical History History of bronchoscopy History of esophagogastroduodenoscopy (EGD) History of left cataract extraction History of surgery BENIGN TUMOR REMOVED FROM LEFT INNER THIGH Family History Mother Family history of diabetes mellitus Sister Family history of diabetes mellitus Social History Smoking Status: Never smoker Second Hand Exposure: No; Do You Dip or Chew Tobacco: No; Hx Alcohol Use: No Hx Substance Use: No Preferred Language: Malaysian Communication Ability: Effective 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 Beliefs That Will Affect Care: None Current Living Situation: Spouse Feels Safe at Home: Yes Assistive Devices: CPAP Review of Systems A total of 10 systems reviewed and were otherwise negative Physical Exam Vital Signs Vital Signs - 24 hr 05/02/23 02:06 05/02/23 02:17 05/02/23 02:24 Temperature 36.4 C L Temperature Source Temporal Artery Scan Pulse Rate 62 78 Pulse Rate [Right] Pulse Rate from SpO2 Sensor Respiratory Rate 40 H 14 Respiratory Effort / Characteristics Spontaneous Labored Short of Breath Non-Labored Spontaneous Respiratory Depth Normal Respiratory Pattern Regular Blood Pressure 154/117 H Blood Pressure Mean 129 Pulse Oximetry 100 100 100 Oxygen Delivery Method Nasal Cannula Nasal Cannula Oxygen Flow Rate 6 6 Fraction of Inspired Oxygen 35 Sepsis Recent Fever Within 48 Hours No Sepsis New/Unexplained Change in Mental Status No Sepsis Action Taken by Nursing No Action Required Oxygen Flow Rate - Titration 4 Pulse Oximetry Post Tiitration 100 05/02/23 02:43 05/02/23 03:11 05/02/23 03:11 Temperature Temperature Source Pulse Rate 84 86 Pulse Rate [Right] 78 Pulse Rate from SpO2 Sensor 83 Respiratory Rate 18 14 23 Respiratory Effort / Characteristics Non-Labored Spontaneous Non-Labored Spontaneous Respiratory Depth Normal Respiratory Pattern Regular Blood Pressure 133/91 Blood Pressure Mean 105 Pulse Oximetry 98 98 98 Oxygen Delivery Method BiPAP Oxygen Flow Rate Fraction of Inspired Oxygen 35 30 Sepsis Recent Fever Within 48 Hours Sepsis New/Unexplained Change in Mental Status Sepsis Action Taken by Nursing Oxygen Flow Rate - Titration Pulse Oximetry Post Tiitration VITALS: Vitals are noted on the nurse's note and reviewed by myself. Vital signs reviewed and patient was hypoxic on room air per EMS in the 60s that greatly improved on nasal cannula to the mid 90s. GENERAL: Black female working to breathe with an elevated BMI with multiple pressure ulcers, in acute distress SKIN: The skin was without rashes, erythema, or bruising. There is no tenting of the skin. Capillary reflex less than 2 seconds. HEAD: Normocephalic atraumatic. EARS: External auditory canals clear, tympanic membranes pearly deutsch without erythema or effusion bilaterally. EYES: Pupils equal round and reactive to light and accommodation. Conjunctivae without injection, sclerae without icterus. Extraocular movements intact. Chemosis and eyelid swelling noted. NOSE: Patent, turbinates without inflammation or discharge. No sinus tenderness. MOUTH: Mucous membranes moist. Pharynx without erythema or exudate. Uvula midline. Airway patent. Tongue does not deviate. NECK: Supple without nuchal rigidity. No lymphadenopathy. No thyromegaly. Cervical spine is nontender. No JVD. HEART: Regular rate and rhythm LUNGS: Mild diffuse inspiratory and end expiratory. No retractions or accessory muscle use. ABDOMEN: Positive bowel sounds x 4. Normal tympanic percussion. Soft, nontender, without masses or organomegaly. Christianson sign negative. No guarding or rebound tenderness. No CVA tenderness MUSCULOSKELETAL: No muscle atrophy noted. NEURO: Patient was alert and oriented to person place and time. Normal sensation to light and sharp touch. No focal neurological deficits. Course Administered Medications Discontinued Medications Furosemide (Furosemide 40 Mg/4 Ml Vial) 40 mg IV ONE ONE Stop: 05/02/23 02:03 Last Admin: 05/02/23 02:42 Dose: 40 mg Documented By: AUTUMN Cefepime HCl (Maxipime) 2,000 mg in 20 mls @ 5 mls/min IV NOW STA; Protocol Stop: 05/02/23 02:12 Last Admin: 05/02/23 02:42 Dose: 5 mls/min Documented By: AUTUMN Nitroglycerin (Nitroglycerin Sl 0.4 Mg/Tab Tab) 0.4 mg SL NOW STA Stop: 05/02/23 02:10 Last Admin: 05/02/23 03:15 Dose: Not Given Documented By: AUTUMN Critical Care Time Critical Care Time: Yes Total Critical Care Time: 35 I have personally spent 35 minutes of critical care time in the direct man agement of this patient. This includes bedside care, interpretation of diagnostic studies, and testing, discussion with consultants, patient, and family members, and other required patient management activities. This 35 minutes is in excess of all separately billable procedures. Medical Decision Making Medical Records Attestation: I reviewed the patient's medical records. Home Medications Current Medication List: was personally reviewed by me Laboratory Data Attestation: I reviewed the patient's lab results. 05/02/23 01:40 05/02/23 01:40 Lab Results 05/02/23 05/02/23 05/02/23 Range/Units 01:40 01:40 01:40 WBC 4.84 (4.8-10.8) K/ul RBC 4.20 (4.20-5.40) M/uL Hgb 12.0 (12.0-16.0) g/dl POC Hgb (12.0-16.0) g/dl Hct 38.9 (37.0-47.0) % POC Hct (37-47) % MCV 92.6 (80.0-100.0) fL MCH 28.6 (25.0-34.0) pg MCHC 30.8 L (32.0-36.0) g/dL RDW Std Deviation 65.0 H (36.4-46.3) fL RDW Coeff of Brittany 19.7 H (11.5-14.5) % Plt Count 153 (130-400) K/uL MPV 11.5 (9.4-12.4) fL Immature Gran % (Auto) 0.6 % Neut % (Auto) 73.2 % Lymph % (Auto) 16.1 % [place] % (Auto) 8.5 % Eos % (Auto) 0.6 % Baso % (Auto) 1.0 % Neut # (Auto) 3.54 (1.40-6.50) K/uL Lymph # (Auto) 0.78 L (1.20-3.40) K/uL [place] # (Auto) 0.41 (0.11-0.59) K/uL Eos # (Auto) 0.03 (0.00-0.50) K/uL Baso # (Auto) 0.05 (0.00-0.20) K/uL Immature Gran # (Auto) 0.03 (0.01-0.20) K/uL PT (9.0-12.0) Seconds INR (0.9-1.1) APTT (21.0-31.0) Seconds PTT Ratio POC Sodium (135-144) mmol/L Sodium 139 (136-145) mmol/L POC Potassium (3.3-5.0) mmol/L Potassium 3.9 (3.5-5.1) mmol/L POC Chloride (101-112) mmol/L Chloride 99 (98-107) mmol/L Carbon Dioxide 30 (21-32) mmol/L POC Total CO2 (24-31) mmol/L Anion Gap 10 (3-11) POC Anion Gap (16-25) mmol/L POC BUN (7-18) mg/dl BUN 15 (6-23) mg/dl Creatinine 0.97 (0.6-1.2) mg/dl POC Creatinine (0.6-1.3) mg/dl Est Cr Clr Drug Dosing 119.2 ml/min Est GFR ( Amer) 72.0 ml/min Est GFR (Non-Af Amer) 62.2 ml/min BUN/Creatinine Ratio 15.5 (10-20) Glucose 142 H (70-99(Fasting)) mg/dl POC Glucose (other) (70-99) mg/dl Lactate 3.5 H* (0.4-2.0) mmol/L Calcium 9.0 (8.6-10.3) mg/dl POC Ioniz Calcium Rashad (1.12-1.32) mmol/l Magnesium 1.7 (1.7-2.4) mg/dl Total Bilirubin 1.8 H (0.2-1.0) mg/dl Direct Bilirubin 0.7 H (0-0.2) mg/dl AST 32 (13-39) U/L ALT 10 (7-52) U/L Alkaline Phosphatase 155 H (34-104) U/L Total Creatine Kinase 147 (26-192) U/L Troponin I High Sens 13.3 (0-14) pg/ml B-Natriuretic Peptide (0-100) pg/ml Total Protein 8.1 (6.0-8.3) gm/dl Albumin 4.0 (3.4-5.0) gm/dl Procalcitonin (0-0.5) ng/ml TSH 3.494 (0.300-4.500) uIu/ml 05/02/23 05/02/23 05/02/23 Range/Units 01:40 01:40 01:40 WBC (4.8-10.8) K/ul RBC (4.20-5.40) M/uL Hgb (12.0-16.0) g/dl POC Hgb (12.0-16.0) g/dl Hct (37.0-47.0) % POC Hct (37-47) % MCV (80.0-100.0) fL MCH (25.0-34.0) pg MCHC (32.0-36.0) g/dL RDW Std Deviation (36.4-46.3) fL RDW Coeff of Brittany (11.5-14.5) % Plt Count (130-400) K/uL MPV (9.4-12.4) fL Immature Gran % (Auto) % Neut % (Auto) % Lymph % (Auto) % [place] % (Auto) % Eos % (Auto) % Baso % (Auto) % Neut # (Auto) (1.40-6.50) K/uL Lymph # (Auto) (1.20-3.40) K/uL [place] # (Auto) (0.11-0.59) K/uL Eos # (Auto) (0.00-0.50) K/uL Baso # (Auto) (0.00-0.20) K/uL Immature Gran # (Auto) (0.01-0.20) K/uL PT 15.0 H (9.0-12.0) Seconds INR 1.4 H (0.9-1.1) APTT 26.4 (21.0-31.0) Seconds PTT Ratio 0.9 POC Sodium (135-144) mmol/L Sodium (136-145) mmol/L POC Potassium (3.3-5.0) mmol/L Potassium (3.5-5.1) mmol/L POC Chloride (101-112) mmol/L Chloride (98-107) mmol/L Carbon Dioxide (21-32) mmol/L POC Total CO2 (24-31) mmol/L Anion Gap (3-11) POC Anion Gap (16-25) mmol/L POC BUN (7-18) mg/dl BUN (6-23) mg/dl Creatinine (0.6-1.2) mg/dl POC Creatinine (0.6-1.3) mg/dl Est Cr Clr Drug Dosing ml/min Est GFR ( Amer) ml/min Est GFR (Non-Af Amer) ml/min BUN/Creatinine Ratio (10-20) Glucose (70-99(Fasting)) mg/dl POC Glucose (other) (70-99) mg/dl Lactate (0.4-2.0) mmol/L Calcium (8.6-10.3) mg/dl POC Ioniz Calcium Rashad (1.12-1.32) mmol/l Magnesium (1.7-2.4) mg/dl Total Bilirubin (0.2-1.0) mg/dl Direct Bilirubin (0-0.2) mg/dl AST (13-39) U/L ALT (7-52) U/L Alkaline Phosphatase (34-104) U/L Total Creatine Kinase Cancelled (26-192) U/L Troponin I High Sens (0-14) pg/ml B-Natriuretic Peptide (0-100) pg/ml Total Protein (6.0-8.3) gm/dl Albumin (3.4-5.0) gm/dl Procalcitonin < 0.05 (0-0.5) ng/ml TSH Cancelled (0.300-4.500) uIu/ml 05/02/23 05/02/23 05/02/23 Range/Units 01:40 01:40 01:52 WBC (4.8-10.8) K/ul RBC (4.20-5.40) M/uL Hgb (12.0-16.0) g/dl POC Hgb 14.3 (12.0-16.0) g/dl Hct (37.0-47.0) % POC Hct 42 (37-47) % MCV (80.0-100.0) fL MCH (25.0-34.0) pg MCHC (32.0-36.0) g/dL RDW Std Deviation (36.4-46.3) fL RDW Coeff of Brittany (11.5-14.5) % Plt Count (130-400) K/uL MPV (9.4-12.4) fL Immature Gran % (Auto) % Neut % (Auto) % Lymph % (Auto) % [place] % (Auto) % Eos % (Auto) % Baso % (Auto) % Neut # (Auto) (1.40-6.50) K/uL Lymph # (Auto) (1.20-3.40) K/uL [place] # (Auto) (0.11-0.59) K/uL Eos # (Auto) (0.00-0.50) K/uL Baso # (Auto) (0.00-0.20) K/uL Immature Gran # (Auto) (0.01-0.20) K/uL PT (9.0-12.0) Seconds INR (0.9-1.1) APTT (21.0-31.0) Seconds PTT Ratio POC Sodium 141 (135-144) mmol/L Sodium (136-145) mmol/L POC Potassium 4.0 (3.3-5.0) mmol/L Potassium (3.5-5.1) mmol/L POC Chloride 99 L (101-112) mmol/L Chloride (98-107) mmol/L Carbon Dioxide (21-32) mmol/L POC Total CO2 31 (24-31) mmol/L Anion Gap (3-11) POC Anion Gap 16.0 (16-25) mmol/L POC BUN 16 (7-18) mg/dl BUN (6-23) mg/dl Creatinine (0.6-1.2) mg/dl POC Creatinine 1.0 (0.6-1.3) mg/dl Est Cr Clr Drug Dosing ml/min Est GFR ( Amer) ml/min Est GFR (Non-Af Amer) ml/min BUN/Creatinine Ratio (10-20) Glucose (70-99(Fasting)) mg/dl POC Glucose (other) 146 H (70-99) mg/dl Lactate (0.4-2.0) mmol/L Calcium (8.6-10.3) mg/dl POC Ioniz Calcium Rashad 1.04 L (1.12-1.32) mmol/l Magnesium (1.7-2.4) mg/dl Total Bilirubin (0.2-1.0) mg/dl Direct Bilirubin (0-0.2) mg/dl AST (13-39) U/L ALT (7-52) U/L Alkaline Phosphatase (34-104) U/L Total Creatine Kinase (26-192) U/L Troponin I High Sens Cancelled (0-14) pg/ml B-Natriuretic Peptide 469 H (0-100) pg/ml Total Protein (6.0-8.3) gm/dl Albumin (3.4-5.0) gm/dl Procalcitonin (0-0.5) ng/ml TSH (0.300-4.500) uIu/ml Imaging Data Attestation: I personally reviewed and interpreted this imaging study as follows: MDM Narrative Prior records/ancillary studies reviewed. Triage Nursing notes reviewed. Additional history obtained from the EMS. The patient's history was concerning for respiratory difficulties. Differential diagnosis: Etiologies such as infections, reactive airway disease, pneumonia, pneumothorax, COPD, CHF, cardiac ischemia, pulmonary embolism, musculoskeletal, gastrointestinal, as well as others were entertained. Physical examination: As above. ER treatment provided: An order was placed for continuous cardiac monitoring. The monitor shows a rate of 60-100 with a sinus rhythm per my interpretation. Nasal cannula then BiPAP was initiated Lasix was ordered cefepime was ordered I-STAT ABG and [id number] was ordered X-ray was called immediately to the room for portable x-ray. On reassessment the patient felt better. Diagnostic interpretation by me: The electrocardiogram was ordered for SOB. ECG: Low voltage, normal sinus, no acute ST-T wave changes. Impression normal sinus rhythm low voltage independently interpreted by myself I think arrhythmia is unlikely. EKG shows normal sinus rhythm with no interval abnormalities such as QT prolongation or WPW. There are no findings to suggest Brugada syndrome. Cardiac monitoring in the emergency department reveals no tachycardic or bradycardic dysrhythmia. Hypertrophic cardiomyopathy was considered but there are no clear historical elements pointing toward this. EKG is not suggestive. The QRS voltage is not extremely large and there are no suggestive Q waves. The labs Independently Interpreted by myself revealed no worrisome leukocytosis, stable H&H Euthyroid, negative troponin, elevated BNP Imaging studies: Chest x-ray with pulmonary congestion concerning for heart failure per my independent interpretation. Consultation: A consultation was placed with the hospitalist. The case was discussed and diagnostics were reviewed. The patient was evaluated in the ER for further treatment. This appears to be consistent with respiratory failure most likely from CHF and asthma with possible pneumonia. Patient was medicated as above. She was placed on BiPAP. Patient states she is a full code. Labs and diagnostics are independently interpreted by myself. She was started on antibiotics for possible pneumonia. She was reassessed multiple times. EKG was nonischemic. First troponin was negative. ABG was reviewed. By the evaluation outlined abov e emergent etiologies such as cardiac ischemia, pulmonary embolism, pneumothorax, musculoskeletal, as well as others were deemed relatively unlikely. The pt informed about the findings as listed above. All questions were answered and pleased with the treatment. The chart was completed utilizing [employer] Speech voice recognition software. Grammatical errors, random word insertions, pronoun errors, and incomplete sentences are an occassional consequence of this system due to software ruiz itations, ambient noise, and hardware issues. Any formal questions or concerns about the content, text, or information contained within the body of this dictation should be directly addressed to the physician assistant manager bilingual for clarification. Impression & Plan Congestive heart failure, Community acquired pneumonia Discharge Plan Visit Data Chief Complaint: Shortness of Breath/Dyspnea ED Provider: Emeterio Sánchez ED Midlevel Provider: Livia Grande Discharge Problem: Congestive heart failure, Community acquired pneumonia Patient Disposition: Admitted As Inpatient Condition: Fair Forms Stand Alone Forms: [facility] Prescriptions Prescriptions: No Action losartan 100 mg Tablet 100 mg PO QPM rosuvastatin [Crestor] 10 mg Tablet 10 mg PO QAM ipratropium-albuterol 0.5 mg-3 mg(2.5 mg base)/3 mL solution for nebulization 3 ml INHALATION Q4 PRN (Reason: cough,SOB,wheezing) pantoprazole 40 mg tablet,delayed release (DR/EC) 40 mg PO DAILYBB montelukast 10 mg tablet 10 mg PO HS duloxetine 30 mg capsule,delayed release(DR/EC) 30 mg PO QAM aspirin [Aspirin Low-Strength] 81 mg Tablet,Delayed Release (Dr/Ec) 81 mg PO DAILY Referrals Referrals: Analilia Toure MD [Outside Practitioners] - Congestive heart failure Qualifiers: Heart failure type: unspecified Heart failure chronicity: acute Qualified Code(s): I50.9 - Heart failure, unspecified
[2023-05-02 02:29] LABS: BUN Creatinine Ratio 15.5 (10-20); Bilirubin Direct 0.7 mg/dl (0-0.2); Bilirubin,Total 1.8 mg/dl (0.2-1.0); Creatinine Clr Calc Pharmacy 119.2 ml/min; Est GFR (Non-African American) 62.2 ml/min; Magnesium 1.7 mg/dl (1.7-2.4); Potassium 3.9 mmol/L (3.5-5.1); Total Protein 8.1 gm/dl (6.0-8.3)
[2023-05-02 02:34] LABS: Troponin I High Sensitivity 13.3 pg/ml (0-14)
[2023-05-02 02:41] LABS: INR 1.4 (0.9-1.1); Partial Thromboplastin Ratio 0.9; Partial Thromboplastin Time 26.4 Seconds (21.0-31.0)
[2023-05-02 02:44] LABS: Thyroid Stimulating Hormone 3.494 uIu/ml (0.300-4.500)
[2023-05-02] MEDS ORDERED: ALBUMIN 25% 25 GM/100 ML VIAL IV ONE (03:30)
--- NOTE | 2023-05-02 04:40 | History & Physical Report ---
Date of Service May 02, 2023 Assessment & Plan (1) Respiratory failure with hypercapnia: Plan: Secondary to subacute CHF Documented weight gain of almost 200 pounds from last visit from 2018 Underlying pulmonary hypertension Secondary to OHS, patient unable to comply with BiPAP recommendations by sleep specialist from 3 years ago. hypertension, slightly elevated hyperlipidemia, on statin Rx valvular heart disease (moderate TR, mild MR from TTE 2017) hx ILD, chronic cough symptoms DM 2 diet-controlled, well-controlled as of remote hemoglobin A1c of 6.2 from 2017 hx GERD, on PPI chronic lymphedema as per records Infected infected decubiti wounds sacral decubitus wounds, no sepsis for now morbid obesity Possible functional disability PCU BiPAP Diuretic Rx strict I/Os, daily weights, CHF education Initiate beta-lora Update TTE, Cardiology consult Re: CHF Pulmonology consult Re: Respiratory failure, OHS ISS BG goal 1 10-1 40, update hemoglobin A1c Doxycycline, Wound care nurse consult for infected decubiti wounds PT OT eval once medically stable DVT prophylaxis. Lovenox subcu Full code Total critical care time was 45 minutes. Text document was generated using XMOS voice recognition software. It may contain grammatical or spelling errors. Kindly contact undersigned for clarification of any documentation item in question. History of Present Illness Chief Complaint: Worsening shortness of breath, fluid retention Primary Care Provider: Dr. Kaminski History obtained from patient, family, and records. Medical history significant for hypertension, hyperlipidemia, pulmonary hypertension, valvular heart disease (moderate TR, mild MR from TTE 2017), CHELI/OHS on CPAP, ILD, DM 2 diet-controlled, GERD, chronic lymphedema as per records, morbid obesity. Last confinement 2015 for respiratory failure secondary to bilateral pneumonia. Patient has not been able to leave the house the last 3 years due to arthritis issues, mobility, and progressive fluid retention. Last PCP visit January 2020. [place] [facility] [place]. Patient noted to have significantly low oxygen levels overnight on CPAP. BiPAP recommended by specialist following titration study in the sleep lab. Patient unable to comply with recommendations. Progressive fluid retention over the last few years. Last month, patient noted shortness of breath at rest. Usual junky cough symptoms. No chest pain. Patient noted to have bedsores with some drainage. No fever, no chills. No consultations done. Patient brought to ER for worsening symptoms. IV cefepime and Lasix administered at the ER. BiPAP initiated at the ER. [id number] ABG done at the ER. 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 Allergies Allergy/AdvReac Type Severity Reaction Status Date / Time Penicillins Allergy Mild RASH Verified 08/21/18 07:52 latex Allergy Unknown rash Verified 08/21/18 07:52 Home Medications Medication Instructions Recorded Confirmed Type losartan 100 mg tablet 100 mg PO QPM 08/02/18 05/02/23 History rosuvastatin 10 mg tablet (Crestor) 10 mg PO QAM 08/02/18 05/02/23 History aspirin 81 mg tablet,delayed 81 mg PO DAILY 05/02/23 05/02/23 History release duloxetine 30 mg capsule,delayed 30 mg PO QAM 05/02/23 05/02/23 History release ipratropium 0.5 mg-albuterol 3 mg 3 ml inhalation Q4 PRN 05/02/23 05/02/23 History (2.5 mg base)/3 mL nebulization cough,SOB,wheezing soln montelukast 10 mg tablet 10 mg PO HS 05/02/23 05/02/23 History pantoprazole 40 mg tablet,delayed 40 mg PO DAILYBB 05/02/23 05/02/23 History release Past Med/Surg History Medical History Asthma RARELY USES INH/NEB Degenerative disc disease Diabetes mellitus, type 2 Hyperlipidemia Hypertension Lymphedema Morbid obesity Osteoarthritis Sleep apnea CPAP Uterine fibroid Surgical History History of bronchoscopy History of esophagogastroduodenoscopy (EGD) History of left cataract extraction History of surgery BENIGN TUMOR REMOVED FROM LEFT INNER THIGH Family History Mother Family history of diabetes mellitus Sister Family history of diabetes mellitus Social History Smoking Status: Never smoker Second Hand Exposure: No; Do You Dip or Chew Tobacco: No; Hx Alcohol Use: No Hx Substance Use: No Preferred Language: Ghanaian Communication Ability: Effective Pattern Maker Required: No Beliefs That Will Affect Care: None Current Living Situation: Spouse Feels Safe at Home: Yes Assistive Devices: CPAP Review of Systems Review of Systems: As per HPI, all other systems reviewed and negative Physical Exam Physical Exam: GENERAL: Slightly uncomfortable, morbidly obese, generalized anasarca, no respiratory distress SKIN: Normal color, warm HEENT: [place] palpebral conjunctivae, puffy eyelids, moist buccal mucosa, BiPAP in place NECK : Supple, short neck, no tenderness CHEST : Decreased breath sounds, no tenderness HEART : RRR, no obvious murmurs ABDOMEN: Marked distention, nontender EXTREMITIES : Bilateral LE swelling, no LE tenderness, no other conspicuous defo rmities noted NEUROLOGIC : Coherent, no facial asymmetry, no other gross focality Results & Data Results & Data Vital Signs (Past 12 Hours) Vital Signs Temp Pulse Pulse Resp BP Pulse Ox O2 Del Method 05/02/23 03:00 87 16 131/75 99 BiPAP 05/02/23 03:11 86 23 98 05/02/23 03:11 78 14 98 BiPAP 05/02/23 02:43 84 18 133/91 98 05/02/23 02:24 78 14 100 05/02/23 02:17 100 Nasal Cannula 05/02/23 02:06 36.4 C L 62 40 H 154/117 H 100 Nasal Cannula O2 Flow Rate FiO2 05/02/23 03:00 30 05/02/23 03:11 30 05/02/23 03:11 35 05/02/23 02:43 05/02/23 02:24 35 05/02/23 02:17 6 05/02/23 02:06 6 Laboratory Results Laboratory Results WBC 4.84 K/ul (4.8-10.8) 05/02/23 01:40 RBC 4.20 M/uL (4.20-5.40) 05/02/23 01:40 Hgb 12.0 g/dl (12.0-16.0) 05/02/23 01:40 POC Hgb 14.3 g/dl (12.0-16.0) 05/02/23 01:52 Hct 38.9 % (37.0-47.0) 05/02/23 01:40 POC Hct 42 % (37-47) 05/02/23 01:52 MCV 92.6 fL (80.0-100.0) 05/02/23 01:40 MCH 28.6 pg (25.0-34.0) 05/02/23 01:40 MCHC 30.8 g/dL (32.0-36.0) L 05/02/23 01:40 RDW Std Deviation 65.0 fL (36.4-46.3) H 05/02/23 01:40 RDW Coeff of Brittany 19.7 % (11.5-14.5) H 05/02/23 01:40 Plt Count 153 K/uL (130-400) 05/02/23 01:40 MPV 11.5 fL (9.4-12.4) 05/02/23 01:40 Immature Gran % (Auto) 0.6 % 05/02/23 01:40 Neut % (Auto) 73.2 % 05/02/23 01:40 Lymph % (Auto) 16.1 % 05/02/23 01:40 Rowan % (Auto) 8.5 % 05/02/23 01:40 Eos % (Auto) 0.6 % 05/02/23 01:40 Baso % (Auto) 1.0 % 05/02/23 01:40 Neut # (Auto) 3.54 K/uL (1.40-6.50) 05/02/23 01:40 Lymph # (Auto) 0.78 K/uL (1.20-3.40) L 05/02/23 01:40 Rowan # (Auto) 0.41 K/uL (0.11-0.59) 05/02/23 01:40 Eos # (Auto) 0.03 K/uL (0.00-0.50) 05/02/23 01:40 Baso # (Auto) 0.05 K/uL (0.00-0.20) 05/02/23 01:40 Immature Gran # (Auto) 0.03 K/uL (0.01-0.20) 05/02/23 01:40 PT 15.0 Seconds (9.0-12.0) H 05/02/23 01:40 INR 1.4 (0.9-1.1) H 05/02/23 01:40 APTT 26.4 Seconds (21.0-31.0) 05/02/23 01:40 PTT Ratio 0.9 05/02/23 01:40 POC Sodium 141 mmol/L (135-144) 05/02/23 01:52 Sodium 139 mmol/L (136-145) 05/02/23 01:40 POC Potassium 4.0 mmol/L (3.3-5.0) 05/02/23 01:52 Potassium 3.9 mmol/L (3.5-5.1) 05/02/23 01:40 POC Chloride 99 mmol/L (101-112) L 05/02/23 01:52 Chloride 99 mmol/L (98-107) 05/02/23 01:40 Carbon Dioxide 30 mmol/L (21-32) 05/02/23 01:40 POC Total CO2 31 mmol/L (24-31) 05/02/23 01:52 Anion Gap 10 (3-11) 05/02/23 01:40 POC Anion Gap 16.0 mmol/L (16-25) 05/02/23 01:52 POC BUN 16 mg/dl (7-18) 05/02/23 01:52 BUN 15 mg/dl (6-23) 05/02/23 01:40 Creatinine 0.97 mg/dl (0.6-1.2) 05/02/23 01:40 POC Creatinine 1.0 mg/dl (0.6-1.3) 05/02/23 01:52 Est Cr Clr Drug Dosing 119.2 ml/min 05/02/23 01:40 Est GFR ( Amer) 72.0 ml/min 05/02/23 01:40 Est GFR (Non-Af Amer) 62.2 ml/min 05/02/23 01:40 BUN/Creatinine Ratio 15.5 (10-20) 05/02/23 01:40 Glucose 142 mg/dl (70-99(Fasting)) H 05/02/23 01:40 POC Glucose (other) 146 mg/dl (70-99) H 05/02/23 01:52 Lactate 3.5 mmol/L (0.4-2.0) H* 05/02/23 01:40 Calcium 9.0 mg/dl (8.6-10.3) 05/02/23 01:40 POC Ioniz Calcium Rashad 1.04 mmol/l (1.12-1.32) L 05/02/23 01:52 Magnesium 1.7 mg/dl (1.7-2.4) 05/02/23 01:40 Total Bilirubin 1.8 mg/dl (0.2-1.0) H 05/02/23 01:40 Direct Bilirubin 0.7 mg/dl (0-0.2) H 05/02/23 01:40 AST 32 U/L (13-39) 05/02/23 01:40 ALT 10 U/L (7-52) 05/02/23 01:40 Alkaline Phosphatase 155 U/L (34-104) H 05/02/23 01:40 Total Creatine Kinase 147 U/L (26-192) 05/02/23 01:40 Total Creatine Kinase Cancelled 05/02/23 01:40 Troponin I High Sens 13.3 pg/ml (0-14) 05/02/23 01:40 Troponin I High Sens Cancelled 05/02/23 01:40 B-Natriuretic Peptide 469 pg/ml (0-100) H 05/02/23 01:40 Total Protein 8.1 gm/dl (6.0-8.3) 05/02/23 01:40 Albumin 4.0 gm/dl (3.4-5.0) 05/02/23 01:40 Procalcitonin < 0.05 ng/ml (0-0.5) 05/02/23 01:40 TSH 3.494 uIu/ml (0.300-4.500) 05/02/23 01:40 TSH Cancelled 05/02/23 01:40 Diagnostic Findings Chest x-ray as per my interpretation cardiomegaly, congestion EKG as per my interpretation : Rate 90, NSR, normal axis, diffuse T wave flattening, low voltage
[2023-05-02] MEDS ORDERED: traMADol HCL 50 MG TABLET PO PRN (04:45)
[2023-05-02] MEDS ORDERED: PROMETHAZINE HCL 12.5 MG in SODIUM CHLORIDE 0.9% 50 ML IV PRN (04:45)
[2023-05-02] MEDS ORDERED: DOXYCYCLINE HYCLATE 100 MG in DEXTROSE 5% MINI-B 100 ML IV STA (04:48)
[2023-05-02] MEDS ORDERED: ACETAMINOPHEN 325 MG TAB PO PRN (05:19)
[2023-05-02] MEDS ORDERED: NITROGLYCERIN SL 0.4 MG/TAB TAB SL PRN (05:19)
[2023-05-02] MEDS ORDERED: CARBOHYDRATES FOR HYPOGLYCEMIA PO PRN (05:19)
[2023-05-02] MEDS ORDERED: GLUCOSE 40% GEL 15 GM TUBE PO PRN (05:19)
[2023-05-02] MEDS ORDERED: GLUCOSE 10 TAB/TUBE PO PRN (05:19)
[2023-05-02] MEDS ORDERED: GLUCAGON FOR INJ 1 MG VIAL SQ PRN (05:19)
[2023-05-02] MEDS ORDERED: DEXTROSE 50% 50 ML SYRINGE IV PRN (05:19)
[2023-05-02] MEDS: MAGNESIUM SULFATE / D5W 1 GM/100 ML BAG IV SCH ×4 (06:18→21:48)
[2023-05-02] MEDS: INSULIN ASPART PER UNIT CHARGE SC SCH ×5 (06:38→23:14)
[2023-05-02 06:51] LABS: Estimated Average Glucose 154 mg/dl
[2023-05-02 07:04] LABS: Appearance Urine Clear (Clear); Bacteria Urine Automated Negative (Negative); Bilirubin Urine Negative (Negative); Blood Urine 1+ (Negative); Color Urine Yellow; Epithelial Cell Urine Auto >30 /lpf (0-5); Glucose Urine UA Negative (Negative); Ketones Urine Negative (Negative); Leukocyte Esterase Urine Negative (Negative); Nitrite Urine Negative (Negative); Protein Urine Negative (Negative); Urobilinogen Urine Negative (Negative)
--- NOTE | 2023-05-02 07:23 | XRay Report ---
XR chest 1V portable CLINICAL HISTORY: Sepsis. COMPARISON STUDY: Chest radiograph and chest CT September 10, 2015. FINDINGS: This exam is significantly compromised due to suboptimal penetration. Moderate cardiomegaly is noted. Central pulmonary arteries are dilated. There is pulmonary vascular congestion without ove rt pulmonary edema. There is no lobar consolidation. No pneumothorax or pleural effusion is noted. El evation/eventration of the right hemidiaphragm is again noted. IMPRESSION: 1. Technically compromised exam due to suboptimal penetration. Cardiomegaly with pulmonary vascular c ongestion. No overt pulmonary edema. 2. Dilated central pulmonary arteries suggestive of pulmonary arterial hypertension. ACT 112: Negative or not required by law. Electronically signed by: Brett Denton M.D. 05/02/2023 7:21 AM
[2023-05-02] MEDS: FUROSEMIDE 40 MG/4 ML VIAL IV SCH ×2 (08:21→16:19)
--- NOTE | 2023-05-02 08:26 | Pulmonary Consultation ---
Date of Consultation May 02, 2023 Assessment & Plan (1) Morbid obesity with BMI of 70 and over, adult: (2) Acute cor pulmonale: (3) CHELI (obstructive sleep apnea): (4) Acute on chronic respiratory failure with hypoxia and hypercapnia: Plan Chest x-ray 05/02/2023 personally reviewed: Portable film, good inspiratory effort, increased pulmonary hilar vascular markings, increased cardiac silhouette, widened mediastinum -- Acute hypoxic hypercapnic respiratory failure Multifactorial BNP 469 Procalcitonin negative TSH within normal limit --Pulmonary hypertension Severe Likely type II along with CHELI/OHS --Morbid obesity BMI 89 Plan: Follow-up influenza A/B, RSV and COVID-19 Chest x-ray does show widened mediastinum with increased pulmonary vascular markings and hilar markings. Recommend 2D echo Recommend BiPAP nightly and as needed shortness of breath Keep O2 saturation between 88-92%. Do not over oxygenate the patient Given the enlarged mediastinum. CTA chest could be thought of significant hypoxia but given the patient's BMI of 89 that might not be possible. Case was discussed with cardiology as well as primary team Please note the above document was generated using voice recognition software. It may contain grammatical, syntax or spelling errors.Any formal questions or concerns about the content, text or information contained within the body of this dictation should be directly addressed to the provider for clarification. History of Present Illness Attending Physician: Travon Joyner MD History of Present Illness 62-year-old female present to the hospital for shortness of breath Past medical history: CHELI/OHS on CPAP, diabetes, GERD, valvular heart disease, pulmonary hypertension, dyslipidemia, hypertension Pulmonary were consulted for hypoxia At the time of examination patient was on BiPAP with EPAP of 6 and pressure support of 10. She was in respiratory distress. Saturation were in the 70s. I increase the EPAP to 8. She was clinically decompensating the plan from the ED was to intubate her and sent her to the ICU. ED attending at bedside along with primary team. History was obtained from previous note and ER chart Has been afebrile. Allergies Allergy/AdvReac Type Severity Reaction Status Date / Time Penicillins Allergy Mild RASH Verified 08/21/18 07:52 latex Allergy Unknown rash Verified 08/21/18 07:52 Home Medications Medication Instructions Recorded Confirmed Type losartan 100 mg tablet 100 mg PO QPM 08/02/18 05/02/23 History rosuvastatin 10 mg tablet (Crestor) 10 mg PO QAM 08/02/18 05/02/23 History aspirin 81 mg tablet,delayed 81 mg PO DAILY 05/02/23 05/02/23 History release duloxetine 30 mg capsule,delayed 30 mg PO QAM 05/02/23 05/02/23 History release ipratropium 0.5 mg-albuterol 3 mg 3 ml inhalation Q4 PRN 05/02/23 05/02/23 History (2.5 mg base)/3 mL nebulization cough,SOB,wheezing soln montelukast 10 mg tablet 10 mg PO HS 05/02/23 05/02/23 History pantoprazole 40 mg tablet,delayed 40 mg PO DAILYBB 05/02/23 05/02/23 History release Patient History Medical History Asthma RARELY USES INH/NEB Degenerative disc disease Diabetes mellitus, type 2 Hyperlipidemia Hypertension Lymphedema Morbid obesity Osteoarthritis Sleep apnea CPAP Uterine fibroid Surgical History History of bronchoscopy History of esophagogastroduodenoscopy (EGD) History of left cataract extraction History of surgery BENIGN TUMOR REMOVED FROM LEFT INNER THIGH Family History Mother Family history of diabetes mellitus Sister Family history of diabetes mellitus Social History Smoking Status: Unknown if ever smoked Second Hand Exposure: No; Do You Dip or Chew Tobacco: No; Preferred Language: Polish Communication Ability: Impaired Communication Ability Comment: d/t current condition Candy Dipper Required: No Beliefs That Will Affect Care: None Current Living Situation: Spouse Other Information That Helps Us Care for You: No Feels Safe at Home: Yes Safety Concerns: Feels Safe At This Time Assistive Devices: CPAP Assistive Devices Comment: unable to assess d/t current medical condition Review of Systems Review of Systems: All systems reviewed & are unremarkable except as noted in HPI & below Physical Exam Physical Exam: Constitutional: In respiratory distress HEENT: EOMI, PERRLA Respiratory system: Decreased air entry bilaterally, no wheeze, rhonchi, positive crackles bilateral lower lobes CVS: S1-S2 positive, distant heart sounds Abdomen: Soft, nontender, nondistended, positive bowel sounds x4, obese Extremities: +2 pulses bilaterally radialis/ dorsalis pedis, no cyanosis, +2 pitting edema bilateral lower extremity Neuro: Somnolent Psych: Anxious mood and affect G/U: No Rendon Skin: no rashes, warm and dry Lymphatic: no cervical or axillary lymphadenopathy Results & Data Results & Data Vital Signs (Past 12 Hours) Vital Signs Temp Pulse Pulse Resp BP BP Pulse Ox 05/02/23 07:00 78 22 96 05/02/23 05:28 76 18 133/102 H 97 05/02/23 04:46 70 05/02/23 03:00 87 16 131/75 99 05/02/23 03:11 86 23 98 05/02/23 03:11 78 14 98 05/02/23 02:43 84 18 133/91 98 05/02/23 02:24 78 14 100 05/02/23 02:17 100 05/02/23 02:06 36.4 C L 62 40 H 154/117 H 100 O2 Del Method O2 Flow Rate FiO2 05/02/23 07:00 40 05/02/23 05:28 BiPAP 30 05/02/23 04:46 05/02/23 03:00 BiPAP 30 05/02/23 03:11 30 05/02/23 03:11 BiPAP 35 05/02/23 02:43 05/02/23 02:24 35 05/02/23 02:17 Nasal Cannula 6 05/02/23 02:06 Nasal Cannula 6 Laboratory Results 05/02/23 01:40 05/02/23 01:40 PG Care Time/CCT Total # of Minutes Spent Total Time Spent with Patient: Total time spent is greater than 50% in coordination of care (as documented) at patient's floor/unit and/or counseling patient: Coding Level of Care Code 75020 INT INP/OBS CARE 3/75MIN Diagnoses Morbid obesity with BMI of 70 and over, adult E66.01; Z68.45 Acute cor pulmonale I26.09 CHELI (obstructive sleep apnea) G47.33 Acute on chronic respiratory failure with hypoxia and hypercapnia J96.21; J96.22
[2023-05-02] MEDS: ASPIRIN 81 MG ECTAB PO SCH (08:39)
[2023-05-02] MEDS: METOPROLOL TARTRATE 25 MG TAB PO SCH ×2 (08:40→21:28)
[2023-05-02] MEDS: ROSUVASTATIN CALCIUM 10 MG TAB PO SCH (08:40)
[2023-05-02] MEDS: PANTOprazole 40 MG TAB PO SCH (08:40)
[2023-05-02] MEDS: DULoxetine HCL 30 MG CAP PO SCH (08:40)
[2023-05-02] MEDS ORDERED: ENOXAPARIN INJ 40 MG/0.4 ML SYR SQ SCH (09:00)
[2023-05-02] MEDS ORDERED: RAPID SEQUENCE INDUCTION BAG ONE (09:11)
--- NOTE | 2023-05-02 09:32 | Emergency Department Note ---
ED Visit Note Called to patient's bedside by bedside nursing staff. Patient has been on BiPAP for the last few hours and has become more lethargic and confused. She is not responding to any questions. Hospitalist at bedside. Decision was made to intubate the patient. Rapid sequence intubation was performed with 20 mg of etomidate and 120 mg of succinylcholine. First-pass intubation was utilized with the glide scope. A 7.5 ET tube was placed at 24.5 at the teeth. Good color change postintubation. Chest x-ray ordered Endotracheal Intubation Indication: Change in mental status; respiratory failure. The patient was on 100% oxygen via BiPAP prior to the procedure. Suction, airway equipment, RSI drugs, respiratory equipment, and appropriate personnel were prepared prior to the initiation of the procedure. A time out was taken. Induction was performed with 20 mg etomidate and 120 mg succinylcholine. After observing the clinical benefit of the medications, the airway was easily visualized utilizing a glide scope. A 7.5 size ETT tube was placed atraumatically to 24.5 cm using standard technique. The cuff inflated without signs of malfunction. There were bilateral breath sounds, positive colormetric change, no gastric sounds, a good capnography waveform, and post procedure pulse oximetry was 96%. There were no complications. .
[2023-05-02] MEDS ORDERED: MIDAZOLAM HCL 1 MG/ML 2ML VIAL ONE (09:35)
[2023-05-02] MEDS ORDERED: VECURONIUM BROMIDE 10 MG VIAL IV ONE (09:44)
[2023-05-02] MEDS ORDERED: NOREPINEPHRINE/D5W 4 MG/250 ML IV ONE (09:52)
[2023-05-02] MEDS ORDERED: VECURONIUM BROMIDE 10 MG VIAL IV STA (10:01)
[2023-05-02 10:03] LABS: Bordetella parapertussis PCR Not Detected (NotDetected); Bordetella pertussis PCR Not Detected (NotDetected); Chlamydia pneumoniae PCR Not Detected (NotDetected); Coronavirus 229E PCR Not Detected (NotDetected); Coronavirus HKU1 PCR Not Detected (NotDetected); Coronavirus NL63 PCR Not Detected (NotDetected); Coronavirus OC43PCR Not Detected (NotDetected); Human Metapneumovirus PCR Not Detected (NotDetected); Influenza A PCR Not Detected (NotDetected); Influenza B PCR Not Detected (NotDetected); Mycoplasma pneumoniae PCR Not Detected (NotDetected); Parainfluenza Virus 1 PCR Not Detected (NotDetected); Parainfluenza Virus 2 PCR Not Detected (NotDetected); Parainfluenza Virus 3 PCR Not Detected (NotDetected); Parainfluenza Virus 4 PCR Not Detected (NotDetected); Respiratory Syncytial VirusPCR Not Detected (NotDetected); Rhinovirus/Enterovirus PCR Not Detected (NotDetected)
[2023-05-02 10:26] LABS: Adenovirus PCR DETECTED (NotDetected); Coronavirus CoV-2 (COVID19)PCR DETECTED (NotDetected)
[2023-05-02] MEDS ORDERED: ALBUT/IPRATROP 3MG/0.5MG NEB 3 ML VIAL INH PRN (10:42)
--- NOTE | 2023-05-02 10:46 | XRay Report ---
XR chest 1V portable HISTORY: Shortness of breath. COMPARISON: Chest 05/02/2023. FINDINGS: The study is limited from a technical standpoint due to the patient's body habitus. Endotra cheal tube appears to terminate approximately 1.6 cm from the emilee. The nasogastric tube terminates below the diaphragm. The heart is enlarged. No pneumothorax. No pleural effusions. There are patchy bibasilar airspace opacities. Degenerative changes noted within the shoulders. There is mild pulmonar y vascular congestion. IMPRESSION: 1. The endotracheal tube appears to terminate approximately 1.6 cm and the emilee. 2. Nasogastric tube terminates below the diaphragm. 3. Cardiomegaly and mild pulmonary vascular congestion. 4. Patchy bibasilar densities. ACT 112: Negative or not required by law. Electronically signed by: Ramiro Rodrigues M.D. 05/02/2023 10:20 AM
[2023-05-02] MEDS ORDERED: fentaNYL citrate 2,500 MCG/250 ML BAG IV ONE (10:47)
[2023-05-02] MEDS ORDERED: fentaNYL BOLUS from BAG IV PRN (11:24)
[2023-05-02] MEDS ORDERED: STAT IV Infusion **Titration per Protocol STA ×3 (11:24→13:11)
[2023-05-02] MEDS ORDERED: PROPOFOL BOLUS FROM BAG IV PRN (11:24)
[2023-05-02] MEDS ORDERED: ETOMIDATE 2 MG/ML 20 ML VIAL IV ONE (11:26)
[2023-05-02] MEDS ORDERED: SUCCINYLCHOLINE CHLORIDE 20 MG/ML 10 ML VIAL IV ONE (11:26)
[2023-05-02] MEDS ORDERED: INFLUENZA VIRUS QUADRIVALENT VACCINE (IIV4) 0.5 ML SYR IM ONE (11:28)
[2023-05-02] MEDS ORDERED: SODIUM BICARB 8.4% INJ 50 MEQ/50 ML SYR IV ONE (11:32)
[2023-05-02] MEDS ORDERED: VASOPRESSIN 20 UNITS in 0.9 % SODIUM CHLORIDE 100 ML IV SCH (12:00)
[2023-05-02] MEDS ORDERED: SODIUM BICARB 8.4% INJ 50 MEQ/50 ML SYR IV STA (12:29)
--- NOTE | 2023-05-02 12:37 | XRay Report ---
XR chest 1V portable HISTORY: 62 years-old Female lines acute respiratory failure COMPARISON: Chest radiograph of same day at 9:30 AM TECHNIQUE: Semierect AP view of the chest FINDINGS: Cardiac silhouette is enlarged. Endotracheal tube overlies the midline, 3.5 cm superior to the emilee . Right IJ central venous catheter is noted with distal tip in expected location of the inferior SVC. Enteric tube courses below the diaphragm with distal tip outside the [id number]. No pneumothorax. Pulmonary vascular congestion with interstitial coarsening again noted. Probable trace pleural effus ions. Persistent bibasilar densities. IMPRESSION: 1. Lines and tubes as above. 2. No pneumothorax. 3. Cardiomegaly with persistent pulmonary vascular congestion, stable to slightly improved. ACT 112: Negative or not required by law. The above report was generated using voice recognition software. It may contain grammatical, syntax o r spelling errors. Electronically signed by: Juan Manuel Rodriguez M.D. 05/02/2023 12:35 PM
[2023-05-02] MEDS ORDERED: MIDAZOLAM BOLUS FROM BAG IV PRN (13:11)
[2023-05-02] MEDS: NOREPINEPHRINE/D5W 4 MG/250 ML PLCT IV SCH ×3 (13:30→21:32)
[2023-05-02] MEDS: propofoL 1,000 MG/100 ML VIAL IV SCH ×2 (13:31→16:34)
[2023-05-02] MEDS: fentaNYL citrate 2,500 MCG/250 ML BAG IV SCH (13:31)
--- NOTE | 2023-05-02 15:08 | Hospitalist Progress Note ---
Date of Service May 02, 2023 Assessment & Plan (1) Respiratory failure with hypercapnia: Plan: Acute respiratory failure with hypoxia and hypercapnia Likely multifactorial: Volume overload, COVID-19 infection, adenovirus, interstitial lung disease, pulmonary hypertension, obesity hypoventilation syndrome Septic Shock: Due to above Lactic acidosis Could have underlying CHF Valvular heart disease (moderate TR, mild MR from TTE 2017) --Biofire: + Adenovirus, CVOID 19 --CXR:The endotracheal tube appears to terminate approximately 1.6 cm and the emilee. Nasogastric tube terminates below the diaphragm. Cardiomegaly and mild pulmonary vascular congestion. Patchy bibasilar densities. --Normal procalcitonin -- ABG pending --Blood cultures pending --S/P Intubation 05/02/23 --ECHO Unable to be obtain due to body habitus -- Appreciate critical care input Currently on pressors Consider Remdesivir, dexamethasone Consider CT to R/O PE if able. Unsure if CT can be done due to her morbid obesity Consider empiric antibiotics Venous Doppler pending IV diuretics as needed Monitor volume status Decubitus wounds Continue wound care Currently on doxycycline OHS Patient unable to comply with BiPAP recommendations by sleep specialist per records Morbid Obesity BMI 89 Hypertension--hold losartan for now Hyperlipidemia--on statin DM II Diet-controlled. HbA1C: 7.0. Monitor BGs. Continue insulin per protocol GERD--Continue PPI Chronic lymphedema Functional disability DVT px Lovenox SQ Code Status Full code Admission and Anticipated Discharge Date Admission Date: May 02, 2023 Subjective Patient is seen and examined in ED Code was called as patient's oxygen saturation dropped to 40s while on BiPAP. Unable to obtain any history She was also noted to have apneic respirations. She underwent emergent intubation while in ED Patient was transferred to ICU for further care Review of Systems Review of Systems: Unobtainable due to endotracheal tube Physical Exam Physical Exam: Physical Exam: Vitals signs as noted above General Appearance:Morbidly Obese, +Intubated Head: normocephalic, Atraumatic Eyes: normal inspection, EOMI Neck: supple, Trachea midline Respiratory/Chest: Decreased breath sounds, CTA Cardiovascular: S1, S2, No murmur Abdomen/GI:Soft, Non tender, +Protuberant, Bowel sounds present Extremities/Musculoskeletal:normal inspection, +Lymphedema Neurologic/Psych:Sedated and Intubated Skin: normal color, warm Results & Data Results & Data Vital Signs (Past 12 Hours) Vital Signs Temp Pulse Pulse Resp BP BP BP 05/02/23 14:00 56 L 05/02/23 13:33 36.5 C 56 L 19 05/02/23 13:33 132/87 05/02/23 13:30 36.5 C 56 L 19 05/02/23 13:03 131/87 05/02/23 13:03 36.5 C 60 19 05/02/23 13:00 36.5 C 56 L 18 05/02/23 12:34 36.5 C 59 L 18 05/02/23 12:34 139/90 05/02/23 12:33 36.4 C L 57 L 18 05/02/23 12:33 145/103 H 05/02/23 12:30 36.4 C L 60 18 05/02/23 12:23 159/103 H 05/02/23 12:23 36.4 C L 69 18 05/02/23 12:13 36.4 C L 75 19 05/02/23 12:13 160/94 H 05/02/23 12:03 36.4 C L 75 19 05/02/23 12:03 143/97 H 05/02/23 12:00 36.5 C 75 19 05/02/23 11:53 36.5 C 75 19 05/02/23 11:53 163/101 H 05/02/23 11:43 181/101 H 05/02/23 11:43 36.5 C 75 20 05/02/23 11:41 184/117 H 05/02/23 11:41 36.5 C 64 22 05/02/23 11:35 131/80 05/02/23 11:35 36.6 C 75 21 05/02/23 11:32 79/55 L 05/02/23 11:32 36.7 C 58 L 19 05/02/23 11:31 36.7 C 59 L 19 05/02/23 11:30 36.7 C 56 L 19 05/02/23 11:24 36.7 C 59 L 18 05/02/23 11:22 36.7 C 69 18 05/02/23 11:18 132/51 L 05/02/23 11:18 36.7 C 74 18 05/02/23 11:03 36.7 C 75 19 05/02/23 11:03 111/53 L 05/02/23 11:00 36.7 C 73 19 05/02/23 10:57 108/68 05/02/23 10:57 36.7 C 75 19 05/02/23 10:48 36.8 C 74 19 05/02/23 10:48 160/76 H 05/02/23 10:41 36.9 C 74 19 05/02/23 10:33 114/75 05/02/23 10:33 36.9 C 74 19 05/02/23 10:32 36.9 C 74 22 05/02/23 10:23 36.9 C 74 21 05/02/23 12:46 60 18 05/02/23 11:10 74 26 H 131/51 L 05/02/23 09:24 96 H 16 05/02/23 10:39 75 19 05/02/23 09:51 112/82 05/02/23 09:48 105 H 15 65/36 L 05/02/23 09:44 98 H 14 114/89 05/02/23 09:27 98 H 16 173/100 H 05/02/23 09:06 107 H 14 105/61 05/02/23 09:02 112 H 18 05/02/23 08:38 96 H 17 118/76 05/02/23 10:12 104 H 16 110/62 05/02/23 08:00 106 H 18 05/02/23 08:00 05/02/23 07:00 78 22 05/02/23 05:28 76 18 133/102 H 05/02/23 04:46 70 05/02/23 03:11 86 23 05/02/23 03:11 78 14 Pulse Ox Pulse Ox O2 Del Method O2 Del Method FiO2 05/02/23 14:00 05/02/23 13:33 05/02/23 13:33 05/02/23 13:30 05/02/23 13:03 05/02/23 13:03 05/02/23 13:00 99 05/02/23 12:34 05/02/23 12:34 05/02/23 12:33 05/02/23 12:33 05/02/23 12:30 05/02/23 12:23 05/02/23 12:23 05/02/23 12:13 05/02/23 12:13 05/02/23 12:03 99 05/02/23 12:03 05/02/23 12:00 05/02/23 11:53 05/02/23 11:53 05/02/23 11:43 05/02/23 11:43 05/02/23 11:41 05/02/23 11:41 05/02/23 11:35 05/02/23 11:35 05/02/23 11:32 05/02/23 11:32 05/02/23 11:31 05/02/23 11:30 05/02/23 11:24 98 05/02/23 11:22 99 05/02/23 11:18 05/02/23 11:18 05/02/23 11:03 05/02/23 11:03 05/02/23 11:00 05/02/23 10:57 05/02/23 10:57 05/02/23 10:48 05/02/23 10:48 05/02/23 10:41 98 05/02/23 10:33 05/02/23 10:33 05/02/23 10:32 05/02/23 10:23 05/02/23 12:46 99 60 05/02/23 11:10 96 Mechanical Vent 05/02/23 09:24 94 100 05/02/23 10:39 95 100 05/02/23 09:51 05/02/23 09:48 91 Mechanical Vent 05/02/23 09:44 90 Mechanical Vent 05/02/23 09:27 90 Mechanical Vent 05/02/23 09:06 41 L BiPAP 05/02/23 09:02 66 L BiPAP 05/02/23 08:38 05/02/23 10:12 91 Mechanical Vent 05/02/23 08:00 05/02/23 08:00 92 BiPAP 05/02/23 07:00 96 40 05/02/23 05:28 97 BiPAP 30 05/02/23 04:46 05/02/23 03:11 98 30 05/02/23 03:11 98 BiPAP 35 Laboratory Results Short CBC 05/02/23 Range/Units 01:40 WBC 4.84 (4.8-10.8) K/ul Hgb 12.0 (12.0-16.0) g/dl Hct 38.9 (37.0-47.0) % Plt Count 153 (130-400) K/uL BMP 05/02/23 01:40 Sodium 139 Potassium 3.9 Chloride 99 Carbon Dioxide 30 BUN 15 Creatinine 0.97 Glucose 142 H Calcium 9.0 Cardiac Enzymes 05/02/23 05/02/23 Range/Units 01:40 01:40 Total Creatine Kinase 147 Cancelled (26-192) U/L Liver Function 05/02/23 Range/Units 01:40 Total Bilirubin 1.8 H (0.2-1.0) mg/dl Direct Bilirubin 0.7 H (0-0.2) mg/dl AST 32 (13-39) U/L ALT 10 (7-52) U/L Alkaline Phosphatase 155 H (34-104) U/L Albumin 4.0 (3.4-5.0) gm/dl Urine 05/02/23 Range/Units 06:35 Urine Color Yellow Urine Appearance Clear (Clear) Urine pH 5.0 (4.5-7.5) Ur Specific [place] 1.010 (1.000-1.030) Urine Protein Negative (Negative) Urine Glucose (UA) Negative (Negative)
--- NOTE | 2023-05-02 16:14 | Procedure Note ---
Procedure Note Date of Service May 02, 2023 Note Central Venous Catheter Indication: Hypotension, need for vasoactive medications Catheter type: Triple-lumen central venous catheter Location: Right internal jugular Emergent consent implied. At this time, the risks of the procedure are less than the risks of NOT performing the procedure. A time out was taken and the correct patient and site identified. The skin was prepped in the standard fashion with chlorhexidine and full sterile drapes applied. The proper landmarks were identified with ultrasound, anesthetized with 1% lidocaine without epinephrine, and the needle was inserted through the skin in the standard fashion. The needle was carefully advanced into blood vessel lumen under ultrasound guidance. The guidewire was placed uneventfully. The vessel is dilated and the catheter was placed. It was sutured into position. There was good blood return from all ports. The patient tolerated the procedure well and there were no complications. Post procedure x-ray was normal. Coding
--- NOTE | 2023-05-02 16:18 | Electrocardiogram Report ---
Test Reason : Blood Pressure : / mmHG Vent. Rate : 087 BPM Atrial Rate : 241 BPM P-R Int : 000 ms QRS Dur : 056 ms QT Int : 120 ms P-R-T Axes : 000 118 000 degrees QTc Int : 144 ms Undetermined rhythm Low voltage QRS Septal infarct (cited on or before 10-SEP-2015) Abnormal ECG When compared with ECG of 26-AUG-2016 07:44, Current undetermined rhythm precludes rhythm comparison, needs review Questionable change in QRS duration Borderline criteria for Lateral infarct are now Present Questionable change in initial forces of Septal leads Confirmed by Jay Ovalles ([id number]) on 05/02/2023 4:18:13 PM Referred By: REFERRED SELF Confirmed By:Jay Ovalles
[2023-05-02] MEDS: MIDAZOLAM HCL 125 MG/250 ML BAG IV SCH (16:19)
--- NOTE | 2023-05-02 16:25 | Electrocardiogram Report ---
Test Reason : Blood Pressure : / mmHG Vent. Rate : 099 BPM Atrial Rate : 110 BPM P-R Int : 000 ms QRS Dur : 068 ms QT Int : 344 ms P-R-T Axes : 000 086 067 degrees QTc Int : 441 ms Undetermined rhythm Low voltage QRS Abnormal ECG When compared with ECG of 02-MAY-2023 01:49, (unconfirmed) No significant change Confirmed by Jay Ovalles ([id number]) on 05/02/2023 4:25:36 PM Referred By: REFERRED SELF Confirmed By:Jay Ovalles
--- NOTE | 2023-05-02 16:28 | Procedure Note ---
Procedure Note Date of Service May 02, 2023 Note Arterial line Indication: Hypotension on vasoactive medications Catheter type: Right axillary A-line Emergent consent implied due to acuity of the patient's condition. At this time, the risks of the procedure are less than the risks of NOT performing the procedure. A time out was taken and the correct patient and site identified. The skin was prepped in the standard fashion with chlorhexidine and full sterile drapes applied. The proper landmarks were identified with ultrasound, anesthetized with 1% lidocaine without epinephrine, and the needle was inserted through the skin in the standard fashion. The needle was carefully advanced into the axillary arterial lumen under ultrasound guidance. The guidewire was placed uneventfully. The catheter was placed via Seldinger technique. It was sutured into position. The patient tolerated the procedure well and there were no complications. Post procedure x-ray was normal. Coding CPT Codes Tubes, Drains, and Vasc Access - Tubes, Drains, and Vasc Access: [id number] Arterial Cath/Cannulation Sampling/Monitoring/Transfusion ([id number]) [facility] [place]arges) Tubes, Drains, and Vasc Access Procedure 1: Tubes, Drains, and Vasc Access: [id number] Arterial Cath/Cannulation Sampling/Monitoring/Transfusion
--- NOTE | 2023-05-02 16:30 | Electrocardiogram Report ---
Test Reason : Blood Pressure : / mmHG Vent. Rate : 056 BPM Atrial Rate : 224 BPM P-R Int : 000 ms QRS Dur : 060 ms QT Int : 506 ms P-R-T Axes : 000 091 108 degrees QTc Int : 488 ms Possible Atrial flutter with 4:1 A-V conduction Low voltage QRS Septal infarct , age undetermined Possible Lateral infarct (cited on or before 10-SEP-2015) Abnormal ECG When compared with ECG of 02-MAY-2023 09:31, (unconfirmed) Previous ECG has undetermined rhythm, needs review Septal infarct is now Present Questionable change in initial forces of Lateral leads Confirmed by Jay Ovalles ([id number]) on 05/02/2023 4:30:32 PM Referred By: REFERRED SELF Confirmed By:Jay Ovalles
--- NOTE | 2023-05-02 16:41 | Critical Care Consultation ---
Date of Consultation May 02, 2023 Assessment & Plan (1) Acute cor pulmonale: Patient is critically ill due to acute hypoxic respiratory failure secondary to acute cor pulmonale and viral pneumonia Neuro: Sedation with Versed and fentanyl -Avoiding propofol secondary to negative inotropic effects Cymbalta 30 mg every morning: Home medication Cardiovascular: Acute cor pulmonale: -Suspect there is a significant chronic portion Of multiple groups: Group 2, possibly group 3, questionable group 4 -Obtain venous duplex for possible DVTs -Empiric heparinization: Risk of thromboembolic disease greater than versus risk of hemorrhage at the present time History hypertension -Metoprolol 12.5 mg twice daily -Cozaar 100 mg by mouth nightly Pulmonary: Adenovirus and COVID 19 virus positive, viral pneumonia -Supportive care, pulmonary toilet -Doxycycline and Rocephin for community-acquired pneumonia with atypical coverage (no risk factors for Pseudomonas) Acute hypoxic and hypercapnic respiratory failure -Would optimally utilize esophageal pressure monitors, patient with massive morbid obesity and I suspect that her transmural pressure is low despite being on high PEEP levels History of obstructive sleep apnea Unable to obtain advanced imaging: CT as patient habitus too large to be accommodated by our CT scanner as confirmed by nursing staff utilizing measurement devices Abdomen Morbid obesity -Check lipid and triglycerides Renal: Rendon catheter for accurate I's and O's -Aggressive diuresis, goal net negative Lactic acid acidosis Infectious disease Viral pneumonia Possible community-acquired pneumonia as secondary infection -Empiric Doxy and Rocephin Blood cultures pending -Bronchoscopy contraindicated with COVID-19 positivity Endocrine ICU glycemic control protocol Elevated A1c 7.0 with type 2 diabetes Lines: Right internal jugular central venous catheter placed 05/02 Right axillary arterial catheter placed 05/02 CODE STATUS: Full code (2) Respiratory failure with hypercapnia: (3) Hypertension: (4) Diabetes: (5) Morbid obesity with BMI of 70 and over, adult: (6) COVID-19: (7) Adenoviral bronchitis: (8) Viral pneumonia: History of Present Illness Reason for Consultation: Acute hypoxic respiratory failure Attending Physician: Travon Joyner MD History of Present Illness History is largely obtained from prior records and other providers. Patient was intubated prior to my involvement. Patient is a 62-year-old female with a documented history of hypertension, hyperlipidemia, pulmonary hypertension, valvular heart disease from transthoracic echo in 2017, obstructive sleep apnea on CPAP, interstitial lung disease, diabetes type 2, chronic lymphedema and morbid obesity who presented for increasing shortness of breath and fluid retention. Records indicate the patient had last seen her primary care provider in January 2020 and last communication with sleep medicine was April 2020. Patient was reported to have been confined to her home for the last 3 years. In the emergency department she is found to be in hypercapnic respiratory failure and was started on BiPAP therapy. During the morning hours the patient had increasing somnolence despite BiPAP therapy and was intubated in the emergency department. She was transferred to the ICU for further evaluation and management. There was significant difficulty in obtaining a transthoracic echocardiogram secondary to body habitus and unable to visualize adequate windows. There was significant difficulty in obtaining an accurate blood pressure as the cuff was unable to read the thigh or arms, we were initially utilizing a blood pressure cuff on the calf. There was also significant difficulty in obtaining an adequate EKG even with adjusting the sensitivity/amplitude. Additionally it was very difficult to obtain a blood gas, pulse oximetry was not consistent therefore the decision was made to emerg ently place a arterial line and central venous catheter to obtain some form of objective clinical data. Patient was found to be positive for COVID and adenovirus. Eventually cardiology was able to perform a transesophageal echocardiogram to evaluate the patient's cardiac function. Bedside monitor is difficult to determine but it appeared she was entering in and out of atrial flutter with 4-1 conduction, during the periods of atrial flutter I believe she is more hypotensive that was then later confirmed after placement of an arterial catheter. Allergies Allergy/AdvReac Type Severity Reaction Status Date / Time Penicillins Allergy Mild RASH Verified 08/21/18 07:52 latex Allergy Unknown rash Verified 08/21/18 07:52 Home Medications Medication Instructions Recorded Confirmed Type losartan 100 mg tablet 100 mg PO QPM 08/02/18 05/02/23 History rosuvastatin 10 mg tablet (Crestor) 10 mg PO QAM 08/02/18 05/02/23 History aspirin 81 mg tablet,delayed 81 mg PO DAILY 05/02/23 05/02/23 History release duloxetine 30 mg capsule,delayed 30 mg PO QAM 05/02/23 05/02/23 History release ipratropium 0.5 mg-albuterol 3 mg 3 ml inhalation Q4 PRN 05/02/23 05/02/23 History (2.5 mg base)/3 mL nebulization cough,SOB,wheezing soln montelukast 10 mg tablet 10 mg PO HS 05/02/23 05/02/23 History pantoprazole 40 mg tablet,delayed 40 mg PO DAILYBB 05/02/23 05/02/23 History release Patient History Medical History Asthma RARELY USES INH/NEB Degenerative disc disease Diabetes mellitus, type 2 Hyperlipidemia Hypertension Lymphedema Morbid obesity Osteoarthritis Sleep apnea CPAP Uterine fibroid Surgical History History of bronchoscopy History of esophagogastroduodenoscopy (EGD) History of left cataract extraction History of surgery BENIGN TUMOR REMOVED FROM LEFT INNER THIGH Family History Mother Family history of diabetes mellitus Sister Family history of diabetes mellitus Social History Smoking Status: Unknown if ever smoked Second Hand Exposure: No; Do You Dip or Chew Tobacco: No; Preferred Language: Kazakh Communication Ability: Impaired Communication Ability Comment: d/t current condition Framing Machine Tender Required: No Beliefs That Will Affect Care: None Current Living Situation: Spouse Other Information That Helps Us Care for You: No Feels Safe at Home: Yes Safety Concerns: Feels Safe At This Time Assistive Devices: CPAP Assistive Devices Comment: unable to assess d/t current medical condition Review of Systems Review of Systems: Unobtainable due to endotracheal tube Physical Exam Physical Exam: General: Acute distress HEENT: Endotracheal tube present Cardiovascular: Distant heart sounds difficult exam secondary to body habitus, palpable radial pulse Pulmonary: Ventilator settings reviewed and adjusted difficult exam secondary to body habitus Abdomen: Difficult exam unable to palpate abdominal organs Extremities: 3+ pitting edema Skin: Multiple comedones Results & Data Results & Data Vital Signs (Past 12 Hours) Vital Signs Temp Pulse Pulse Resp BP BP BP 05/02/23 16:00 36.1 C L 56 L 19 05/02/23 16:00 133/83 05/02/23 15:45 133/80 05/02/23 15:45 36.2 C L 56 L 19 05/02/23 15:30 126/82 05/02/23 15:30 36.2 C L 56 L 19 05/02/23 15:22 36.2 C L 56 L 19 05/02/23 15:22 109/81 05/02/23 15:15 115/80 05/02/23 15:15 36.3 C L 56 L 18 05/02/23 15:03 105/70 05/02/23 15:03 36.3 C L 56 L 18 05/02/23 15:00 36.3 C L 56 L 18 05/02/23 14:33 36.4 C L 61 19 05/02/23 14:33 116/77 05/02/23 14:03 36.4 C L 56 L 19 05/02/23 14:03 142/90 H 05/02/23 14:00 36.4 C L 56 L 19 05/02/23 16:00 56 L 05/02/23 15:56 05/02/23 14:00 56 L 05/02/23 13:33 36.5 C 56 L 19 05/02/23 13:33 132/87 05/02/23 13:30 36.5 C 56 L 19 05/02/23 13:03 131/87 05/02/23 13:03 36.5 C 60 19 05/02/23 13:00 36.5 C 56 L 18 05/02/23 12:34 36.5 C 59 L 18 05/02/23 12:34 139/90 05/02/23 12:33 36.4 C L 57 L 18 05/02/23 12:33 145/103 H 05/02/23 12:30 36.4 C L 60 18 05/02/23 12:23 159/103 H 05/02/23 12:23 36.4 C L 69 18 05/02/23 12:13 36.4 C L 75 19 05/02/23 12:13 160/94 H 05/02/23 12:03 36.4 C L 75 19 05/02/23 12:03 143/97 H 05/02/23 12:00 36.5 C 75 19 05/02/23 11:53 36.5 C 75 19 05/02/23 11:53 163/101 H 05/02/23 11:43 181/101 H 05/02/23 11:43 36.5 C 75 20 05/02/23 11:41 184/117 H 05/02/23 11:41 36.5 C 64 22 05/02/23 11:35 131/80 05/02/23 11:35 36.6 C 75 21 05/02/23 11:32 79/55 L 05/02/23 11:32 36.7 C 58 L 19 05/02/23 11:31 36.7 C 59 L 19 05/02/23 11:30 36.7 C 56 L 19 05/02/23 11:24 36.7 C 59 L 18 05/02/23 11:22 36.7 C 69 18 05/02/23 11:18 132/51 L 05/02/23 11:18 36.7 C 74 18 05/02/23 11:03 36.7 C 75 19 05/02/23 11:03 111/53 L 05/02/23 11:00 36.7 C 73 19 05/02/23 10:57 108/68 05/02/23 10:57 36.7 C 75 19 05/02/23 10:48 36.8 C 74 19 05/02/23 10:48 160/76 H 05/02/23 10:41 36.9 C 74 19 05/02/23 10:33 114/75 05/02/23 10:33 36.9 C 74 19 05/02/23 10:32 36.9 C 74 22 05/02/23 10:23 36.9 C 74 21 05/02/23 12:46 60 18 05/02/23 11:10 74 26 H 131/51 L 05/02/23 09:24 96 H 16 05/02/23 10:39 75 19 05/02/23 09:51 112/82 05/02/23 09:48 105 H 15 65/36 L 05/02/23 09:44 98 H 14 114/89 05/02/23 09:27 98 H 16 173/100 H 05/02/23 09:06 107 H 14 105/61 05/02/23 09:02 112 H 18 05/02/23 08:38 96 H 17 118/76 05/02/23 10:12 104 H 16 110/62 05/02/23 08:00 106 H 18 05/02/23 08:00 05/02/23 07:00 78 22 05/02/23 05:28 76 18 133/102 H 05/02/23 04:46 70 Pulse Ox Pulse Ox O2 Del Method O2 Del Method FiO2 05/02/23 16:00 100 05/02/23 16:00 05/02/23 15:45 05/02/23 15:45 100 05/02/23 15:30 05/02/23 15:30 99 05/02/23 15:22 05/02/23 15:22 05/02/23 15:15 05/02/23 15:15 100 05/02/23 15:03 05/02/23 15:03 98 05/02/23 15:00 98 05/02/23 14:33 05/02/23 14:33 05/02/23 14:03 05/02/23 14:03 05/02/23 14:00 05/02/23 16:00 05/02/23 15:56 Mechanical Vent 60 05/02/23 14:00 05/02/23 13:33 05/02/23 13:33 05/02/23 13:30 05/02/23 13:03 05/02/23 13:03 05/02/23 13:00 99 05/02/23 12:34 05/02/23 12:34 05/02/23 12:33 05/02/23 12:33 05/02/23 12:30 05/02/23 12:23 05/02/23 12:23 05/02/23 12:13 05/02/23 12:13 05/02/23 12:03 99 05/02/23 12:03 05/02/23 12:00 05/02/23 11:53 05/02/23 11:53 05/02/23 11:43 05/02/23 11:43 05/02/23 11:41 05/02/23 11:41 05/02/23 11:35 05/02/23 11:35 05/02/23 11:32 05/02/23 11:32 05/02/23 11:31 05/02/23 11:30 05/02/23 11:24 98 05/02/23 11:22 99 05/02/23 11:18 05/02/23 11:18 05/02/23 11:03 05/02/23 11:03 05/02/23 11:00 05/02/23 10:57 05/02/23 10:57 05/02/23 10:48 05/02/23 10:48 05/02/23 10:41 98 05/02/23 10:33 05/02/23 10:33 05/02/23 10:32 05/02/23 10:23 05/02/23 12:46 99 60 05/02/23 11:10 96 Mechanical Vent 05/02/23 09:24 94 100 05/02/23 10:39 95 100 05/02/23 09:51 05/02/23 09:48 91 Mechanical Vent 05/02/23 09:44 90 Mechanical Vent 05/02/23 09:27 90 Mechanical Vent 05/02/23 09:06 41 L BiPAP 05/02/23 09:02 66 L BiPAP 05/02/23 08:38 05/02/23 10:12 91 Mechanical Vent 05/02/23 08:00 05/02/23 08:00 92 BiPAP 05/02/23 07:00 96 40 05/02/23 05:28 97 BiPAP 30 05/02/23 04:46 Diagnostic Findings Transesophageal echo summary: Flattened septum consistent with RV pressure volume overload, massive right atrial enlargement, right ventricular dilatation, moderate to severe right ventricular hypertrophy, right ventricular systolic function moderately reduced, severe tricuspid regurgitation, right ventricular systolic pressure elevated at greater than 60 mmHg, left ventricular function and size relatively reported normal ECG Additional Comments: EKG at 230 atrial flutter with 4-1 conduction abnormal EKG Critical Care Results & Data Vital Signs (Past 12 Hours) Vital Signs Temp Pulse Pulse Resp BP BP BP 05/02/23 16:00 36.1 C L 56 L 19 05/02/23 16:00 133/83 05/02/23 15:45 133/80 05/02/23 15:45 36.2 C L 56 L 19 05/02/23 15:30 126/82 05/02/23 15:30 36.2 C L 56 L 19 05/02/23 15:22 36.2 C L 56 L 19 05/02/23 15:22 109/81 05/02/23 15:15 115/80 05/02/23 15:15 36.3 C L 56 L 18 05/02/23 15:03 105/70 05/02/23 15:03 36.3 C L 56 L 18 05/02/23 15:00 36.3 C L 56 L 18 05/02/23 14:33 36.4 C L 61 19 05/02/23 14:33 116/77 05/02/23 14:03 36.4 C L 56 L 19 05/02/23 14:03 142/90 H 05/02/23 14:00 36.4 C L 56 L 19 05/02/23 16:00 56 L 05/02/23 15:56 05/02/23 14:00 56 L 05/02/23 13:33 36.5 C 56 L 19 05/02/23 13:33 132/87 05/02/23 13:30 36.5 C 56 L 19 05/02/23 13:03 131/87 05/02/23 13:03 36.5 C 60 19 05/02/23 13:00 36.5 C 56 L 18 05/02/23 12:34 36.5 C 59 L 18 05/02/23 12:34 139/90 05/02/23 12:33 36.4 C L 57 L 18 05/02/23 12:33 145/103 H 05/02/23 12:30 36.4 C L 60 18 05/02/23 12:23 159/103 H 05/02/23 12:23 36.4 C L 69 18 05/02/23 12:13 36.4 C L 75 19 05/02/23 12:13 160/94 H 05/02/23 12:03 36.4 C L 75 19 05/02/23 12:03 143/97 H 05/02/23 12:00 36.5 C 75 19 05/02/23 11:53 36.5 C 75 19 05/02/23 11:53 163/101 H 05/02/23 11:43 181/101 H 05/02/23 11:43 36.5 C 75 20 05/02/23 11:41 184/117 H 05/02/23 11:41 36.5 C 64 22 05/02/23 11:35 131/80 05/02/23 11:35 36.6 C 75 21 05/02/23 11:32 79/55 L 05/02/23 11:32 36.7 C 58 L 19 05/02/23 11:31 36.7 C 59 L 19 05/02/23 11:30 36.7 C 56 L 19 05/02/23 11:24 36.7 C 59 L 18 05/02/23 11:22 36.7 C 69 18 05/02/23 11:18 132/51 L 05/02/23 11:18 36.7 C 74 18 05/02/23 11:03 36.7 C 75 19 05/02/23 11:03 111/53 L 05/02/23 11:00 36.7 C 73 19 05/02/23 10:57 108/68 05/02/23 10:57 36.7 C 75 19 05/02/23 10:48 36.8 C 74 19 05/02/23 10:48 160/76 H 05/02/23 10:41 36.9 C 74 19 05/02/23 10:33 114/75 05/02/23 10:33 36.9 C 74 19 05/02/23 10:32 36.9 C 74 22 05/02/23 10:23 36.9 C 74 21 05/02/23 12:46 60 18 05/02/23 11:10 74 26 H 131/51 L 05/02/23 09:24 96 H 16 05/02/23 10:39 75 19 05/02/23 09:51 112/82 05/02/23 09:48 105 H 15 65/36 L 05/02/23 09:44 98 H 14 114/89 05/02/23 09:27 98 H 16 173/100 H 05/02/23 09:06 107 H 14 105/61 05/02/23 09:02 112 H 18 05/02/23 08:38 96 H 17 118/76 05/02/23 10:12 104 H 16 110/62 05/02/23 08:00 106 H 18 05/02/23 08:00 05/02/23 07:00 78 22 05/02/23 05:28 76 18 133/102 H Pulse Ox Pulse Ox O2 Del Method O2 Del Method FiO2 05/02/23 16:00 100 05/02/23 16:00 05/02/23 15:45 05/02/23 15:45 100 05/02/23 15:30 05/02/23 15:30 99 05/02/23 15:22 05/02/23 15:22 05/02/23 15:15 05/02/23 15:15 100 05/02/23 15:03 05/02/23 15:03 98 05/02/23 15:00 98 05/02/23 14:33 05/02/23 14:33 05/02/23 14:03 05/02/23 14:03 05/02/23 14:00 05/02/23 16:00 05/02/23 15:56 Mechanical Vent 60 05/02/23 14:00 05/02/23 13:33 05/02/23 13:33 05/02/23 13:30 05/02/23 13:03 05/02/23 13:03 05/02/23 13:00 99 05/02/23 12:34 05/02/23 12:34 05/02/23 12:33 05/02/23 12:33 05/02/23 12:30 05/02/23 12:23 05/02/23 12:23 05/02/23 12:13 05/02/23 12:13 05/02/23 12:03 99 05/02/23 12:03 05/02/23 12:00 05/02/23 11:53 05/02/23 11:53 05/02/23 11:43 05/02/23 11:43 05/02/23 11:41 05/02/23 11:41 05/02/23 11:35 05/02/23 11:35 05/02/23 11:32 05/02/23 11:32 05/02/23 11:31 05/02/23 11:30 05/02/23 11:24 98 05/02/23 11:22 99 05/02/23 11:18 05/02/23 11:18 05/02/23 11:03 05/02/23 11:03 05/02/23 11:00 05/02/23 10:57 05/02/23 10:57 05/02/23 10:48 05/02/23 10:48 05/02/23 10:41 98 05/02/23 10:33 05/02/23 10:33 05/02/23 10:32 05/02/23 10:23 05/02/23 12:46 99 60 05/02/23 11:10 96 Mechanical Vent 05/02/23 09:24 94 100 05/02/23 10:39 95 100 05/02/23 09:51 05/02/23 09:48 91 Mechanical Vent 05/02/23 09:44 90 Mechanical Vent 05/02/23 09:27 90 Mechanical Vent 05/02/23 09:06 41 L BiPAP 05/02/23 09:02 66 L BiPAP 05/02/23 08:38 05/02/23 10:12 91 Mechanical Vent 05/02/23 08:00 05/02/23 08:00 92 BiPAP 05/02/23 07:00 96 40 05/02/23 05:28 97 BiPAP 30 Lab & Micro Results (Past 24 Hours) RBC 4.20 M/uL (4.20-5.40) 05/02/23 WBC 4.84 K/ul (4.8-10.8) 05/02/23 Hgb 12.0 g/dl (12.0-16.0) 05/02/23 Hct 38.9 % (37.0-47.0) 05/02/23 MCV 92.6 fL (80.0-100.0) 05/02/23 MCH 28.6 pg (25.0-34.0) 05/02/23 MCHC 30.8 g/dL (32.0-36.0) L 05/02/23 RDW Standard Deviation 65.0 fL (36.4-46.3) H 05/02/23 RDW Coefficient of Variation 19.7 % (11.5-14.5) H 05/02/23 Plt Count 153 K/uL (130-400) 05/02/23 MPV 11.5 fL (9.4-12.4) 05/02/23 Neutrophils (%) (Auto) 73.2 % 05/02/23 Lymphocytes (%) (Auto) 16.1 % 05/02/23 Monocytes # (Auto) 0.41 K/uL (0.11-0.59) 05/02/23 Eosinophils # (Auto) 0.03 K/uL (0.00-0.50) 05/02/23 Immature Granulocyte % (Auto) 0.6 % 05/02/23 Neutrophils # (Auto) 3.54 K/uL (1.40-6.50) 05/02/23 Lymphocytes # (Auto) 0.78 K/uL (1.20-3.40) L 05/02/23 Monocytes # (Auto) 0.41 K/uL (0.11-0.59) 05/02/23 Eosinophils # (Auto) 0.03 K/uL (0.00-0.50) 05/02/23 Basophils # (Auto) 0.05 K/uL (0.00-0.20) 05/02/23 Immature Granulocyte # (Auto) 0.03 K/uL (0.01-0.20) 3 Na 139 mmol/L (136-145) 05/02/23 K 3.9 mmol/L (3.5-5.1) 05/02/23 Cl 99 mmol/L (98-107) 05/02/23 CO2 30 mmol/L (21-32) 05/02/23 Anion Gap 10 (3-11) 05/02/23 BUN 15 mg/dl (6-23) 05/02/23 Creatinine 0.97 mg/dl (0.6-1.2) 05/02/23 Estimated GFR ( Amer) 72.0 ml/min 05/02/23 Estimated GFR (Non-Af Amer) 62.2 ml/min 05/02/23 BUN/Creatinine Ratio 15.5 (10-20) 05/02/23 Glu 142 mg/dl (70-99(Fasting)) H 05/02/23 Ca 9.0 mg/dl (8.6-10.3) 05/02/23 Total Bilirubin 1.8 mg/dl (0.2-1.0) H 05/02/23 Direct Bilirubin 0.7 mg/dl (0-0.2) H 05/02/23 AST 32 U/L (13-39) 05/02/23 ALT 10 U/L (7-52) 05/02/23 Alkaline Phosphatase 155 U/L (34-104) H 05/02/23 TP 8.1 gm/dl (6.0-8.3) 05/02/23 Albumin 4.0 gm/dl (3.4-5.0) 05/02/23 Mg 1.7 mg/dl (1.7-2.4) 05/02/23 01:40 Calcium Level 9.0 mg/dl (8.6-10.3) 05/02/23 01:40 Prothromb Time International Ratio 1.4 (0.9-1.1) H 05/02/23 01 :40 Rush Test NA 05/02/23 12:36 Microbiology 05/02/23 01:40 Gram Stain - Final Back Diagnostic Findings (Past 24 Hours) Chest X-Ray 05/02/23 01:47 XR chest 1V portable CLINICAL HISTORY: Sepsis. COMPARISON STUDY: Chest radiograph and chest CT September 10, 2015. FINDINGS: This exam is significantly compromised due to suboptimal penetration. Moderate cardiomegaly is noted. Central pulmonary arteries are dilated. There is pulmonary vascular congestion without overt pulmonary edema. There is no lobar consolidation. No pneumothorax or pleural effusion is noted. Elevation/eventration of the right hemidiaphragm is again noted. IMPRESSION: 1. Technically compromised exam due to suboptimal penetration. Cardiomegaly with pulmonary vascular congestion. No overt pulmonary edema. 2. Dilated central pulmonary arteries suggestive of pulmonary arterial hypertension. ACT 112: Negative or not required by law. Electronically signed by: Brett Denton M.D. 05/02/2023 7:21 AM Chest X-Ray 05/02/23 09:11 XR chest 1V portable HISTORY: Shortness of breath. COMPARISON: Chest 05/02/2023. FINDINGS: The study is limited from a technical standpoint due to the patient's body habitus. Endotracheal tube appears to terminate approximately 1.6 cm from the emilee. The nasogastric tube terminates below the diaphragm. The heart is enlarged. No pneumothorax. No pleural effusions. There are patchy bibasilar airspace opacities. Degenerative changes noted within the shoulders. There is mild pulmonary vascular congestion. IMPRESSION: 1. The endotracheal tube appears to terminate approximately 1.6 cm and the emilee. 2. Nasogastric tube terminates below the diaphragm. 3. Cardiomegaly and mild pulmonary vascular congestion. 4. Patchy bibasilar densities. ACT 112: Negative or not required by law. Electronically signed by: Ramiro Rodrigues M.D. 05/02/2023 10:20 AM Chest X-Ray 05/02/23 11:27 XR chest 1V portable HISTORY: 62 years-old Female lines acute respiratory failure COMPARISON: Chest radiograph of same day at 9:30 AM TECHNIQUE: Semierect AP view of the chest FINDINGS: Cardiac silhouette is enlarged. Endotracheal tube overlies the midline, 3.5 cm superior to the emilee. Right IJ central venous catheter is noted with distal tip in expected location of the inferior SVC. Enteric tube courses below the diaphragm with distal tip outside the [id number]. No pneumothorax. Pulmonary vascular congestion with interstitial coarsening again noted. Probable trace pleural effusions. Persistent bibasilar densities. IMPRESSION: 1. Lines and tubes as above. 2. No pneumothorax. 3. Cardiomegaly with persistent pulmonary vascular congestion, stable to slightly improved. ACT 112: Negative or not required by law. The above report was generated using voice recognition software. It may contain grammatical, syntax or spelling errors. Electronically signed by: Juan Manuel Rodriguez M.D. 05/02/2023 12:35 PM I & O Totals 24 Hours 05/01/23 05/02/23 05/03/23 06:59 06:59 06:59 Intake Total 100 / 100 460.763 / 460.763 Balance 100 / 100 460.763 / 460.763 Cumulative 05/02/23 01:14 thru 05/02/23 16:31 Intake Total 560.763 Balance 560.763 RT Ventilator Mngmt (Last Documented) Ventilator Ordered Settings Ventilator Support Mode Assist Control 05/02/23 12:46 Respiratory Rate 19 05/02/23 16:00 Ventilator Tidal Volume 330 05/02/23 12:46 Setting Minute Ventilation 4 05/02/23 09:24 Positive End Expiratory 20 05/02/23 12:46 Pressure Fraction of Inspired Oxygen 60 05/02/23 15:56 Ventilator - PT Measurements Respiratory Rate 19 Exhaled Tidal Volume 335 Minute Ventilation 4 Peak Inspiratory Airway 33 Pressure Plateau Pressure 32 Respiratory Cycle Inspiratory: 1:2 Expiratory Ratio Inspiratory Phase Time 1 End-Tidal CO2 42 Static Lung Compliance 27.92 Dynamic Lung Compliance 25.77 Normal Static Lung Compliance 47.00 Patient Measurements Comment ween to 20 peep and FI02 60% Coding Level of Care Code 60880 CRITICAL CARE 1ST 30-74M Additional Critical Care Time Additional 30min Critical Care Time: Yes - 01334 x 3 (90 addl min) Total Critical Care Time: 150 Diagnoses Acute cor pulmonale I26.09 Respiratory failure with hypercapnia J96.92 Hypertension I10 Diabetes E11.9 Morbid obesity with BMI of 70 and over, adult E66.01; Z68.45 COVID-19 U07.1 Adenoviral bronchitis J40; B97.0 Viral pneumonia J12.9 Additional Codes Critical Care Time - Additional 30min Critical Care Time: Yes - 16798 x 3 (90 addl min) ([id number])
[2023-05-02] MEDS ORDERED: Heparin IV Adult Wt-Based Standard WITH Bolus Protocol IV STA (17:04)
[2023-05-02 17:05] LABS: iSTAT Art Bld Gas pCO2 Correct 63 mmHg (35-46); iSTAT Art Bld Gas pH Corrected 7.339 (7.35-7.45); iSTAT Arterial Blood Gas HCO3 34 meg/L (19-24); iSTAT Arterial Blood Gas pCO2 64 mmHg (35-46); iSTAT Arterial Blood Gas pH 7.33 (7.35-7.45); iSTAT Arterial Blood Gas pO2 > 420 mmHg (80-95); iSTAT Arterial Blood Gas pO2 C 453; iSTAT Carbon Dioxide 36 mmol/L (24-31); iSTAT FiO2 100 %; iSTAT Hematocrit 39 % (37-47); iSTAT Hemoglobin 13.3 g/dl (12.0-16.0); iSTAT Potassium 3.8 mmol/L (3.3-5.0); iSTAT Site Art Line; iSTAT Sodium 140 mmol/L (135-144)
[2023-05-02] MEDS ORDERED: HEPARIN SOD (PORCINE) 1000 UNIT/ML IV ONE ×2 (17:30→17:45)
[2023-05-02] MEDS ORDERED: Nursing to Pharmacy Communication SCH ×2 (17:45→22:00)
[2023-05-02] MEDS: HEPARIN SODIUM/DEXTROSE 25,000 UNITS/500 ML BAG IV SCH (17:45)
[2023-05-02 18:34] LABS: BUN Creatinine Ratio 15.5 (10-20); Calcium 8.6 mg/dl (8.6-10.3); Creatinine Clr Calc Pharmacy 105.1 ml/min; Est GFR (African American) 61.9 ml/min; Est GFR (Non-African American) 53.4 ml/min; Magnesium 1.6 mg/dl (1.7-2.4); Phosphorus 4.5 mg/dl (2.5-4.9); Potassium 3.9 mmol/L (3.5-5.1)
--- NOTE | 2023-05-02 19:24 | Cardiology Consultation ---
Date of Consultation May 02, 2023 Assessment & Plan (1) Acute on chronic respiratory failure with hypoxia and hypercapnia: (2) CHELI (obstructive sleep apnea): (3) Acute cor pulmonale: (4) Morbid obesity with BMI of 70 and over, adult: (5) Atrial flutter: (6) COVID-19: Plan 62-year-old female with morbid obesity BMI greater than 70 weight greater than 500 pounds presents with evidence of acute cor pulmonale likely acute on chronic hypercapnic respiratory failure possibly precipitated by viral infection. Rhythm reveals probable coarse A-fib flutter Currently being managed in the intensive care unit on mechanical ventilation, low-dose pressors. Patient is responding to diuretics Anticoagulation initiated with heparin appropriately X-rays and exam consistent with right heart failure secondary to above. LV systolic function low normal Agree with current plans with continued respiratory support cautious diuresis following renal function Avoid AV brittani blocking drugs given resting bradycardia History of Present Illness Reason for Consultation: Hypercapnic respiratory arrest, morbid obesity Requesting Physician: Dr. Joyner Attending Physician: Travon Joyner MD History of Present Illness Patient is a 62-year-old -[place] female with history of morbid obesity, obstructive sleep apnea who presented for evaluation of worsening dyspnea and difficulty breathing ER evaluation demonstrated evidence of hypercapnic respiratory failure and patient ultimately intubated intensive care unit Time of exam patient unable to answer questions sedated and intubated records are as per listed in prior consultations per ICU and hospitalist Currently COVID-positive Refer per records of 200 pound weight gain over the past 4 years marked immobility x3 years. No recent medical evaluation. Not using CPAP Allergies Allergy/AdvReac Type Severity Reaction Status Date / Time Penicillins Allergy Mild RASH Verified 08/21/18 07:52 latex Allergy Unknown rash Verified 08/21/18 07:52 Home Medications Medication Instructions Recorded Confirmed Type losartan 100 mg tablet 100 mg PO QPM 08/02/18 05/02/23 History rosuvastatin 10 mg tablet (Crestor) 10 mg PO QAM 08/02/18 05/02/23 History aspirin 81 mg tablet,delayed 81 mg PO DAILY 05/02/23 05/02/23 History release duloxetine 30 mg capsule,delayed 30 mg PO QAM 05/02/23 05/02/23 History release ipratropium 0.5 mg-albuterol 3 mg 3 ml inhalation Q4 PRN 05/02/23 05/02/23 History (2.5 mg base)/3 mL nebulization cough,SOB,wheezing soln montelukast 10 mg tablet 10 mg PO HS 05/02/23 05/02/23 History pantoprazole 40 mg tablet,delayed 40 mg PO DAILYBB 05/02/23 05/02/23 History release Patient History Medical History Asthma RARELY USES INH/NEB Degenerative disc disease Diabetes mellitus, type 2 Hyperlipidemia Hypertension Lymphedema Morbid obesity Osteoarthritis Sleep apnea CPAP Uterine fibroid Surgical History History of bronchoscopy History of esophagogastroduodenoscopy (EGD) History of left cataract extraction History of surgery BENIGN TUMOR REMOVED FROM LEFT INNER THIGH Family History Mother Family history of diabetes mellitus Sister Family history of diabetes mellitus Social History Smoking Status: Unknown if ever smoked Second Hand Exposure: No; Do You Dip or Chew Tobacco: No; Preferred Language: [place] Communication Ability: Impaired Communication Ability Comment: d/t current condition 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 Beliefs That Will Affect Care: None Current Living Situation: Spouse Other Information That Helps Us Care for You: No Feels Safe at Home: Yes Safety Concerns: Feels Safe At This Time Assistive Devices: CPAP Assistive Devices Comment: unable to assess d/t current medical condition Review of Systems Review of Systems: Unobtainable due to endotracheal tube Physical Exam Constitutional: + morbidly obese Neck: + thick neck (Very short) Respiratory: Auscultation: + diminished lung sounds Cardiovascular: Rate/Rhythm: regular rate and + irregularly irregular Vessels: radial pulses present Extremities: + edema Very distant heart sounds Results & Data Vital Signs (Past 12 Hours) Vital Signs Temp Pulse Pulse Resp BP BP Pulse Ox 05/02/23 18:00 36.0 C L 56 L 19 100 05/02/23 18:00 124/79 05/02/23 17:45 128/78 05/02/23 17:45 36.0 C L 56 L 18 100 05/02/23 17:30 118/73 05/02/23 17:30 36.0 C L 56 L 19 100 05/02/23 17:15 109/80 05/02/23 17:15 36.0 C L 56 L 19 100 05/02/23 17:00 36.0 C L 56 L 19 100 05/02/23 17:00 138/86 05/02/23 16:45 36.0 C L 56 L 19 100 05/02/23 16:45 136/82 05/02/23 16:30 132/81 05/02/23 16:30 36.1 C L 56 L 19 100 05/02/23 16:15 36.1 C L 56 L 18 100 05/02/23 16:15 133/80 05/02/23 16:00 36.1 C L 56 L 19 100 05/02/23 16:00 133/83 05/02/23 15:45 133/80 05/02/23 15:45 36.2 C L 56 L 19 100 05/02/23 15:30 126/82 05/02/23 15:30 36.2 C L 56 L 19 99 05/02/23 15:22 36.2 C L 56 L 19 05/02/23 15:22 109/81 05/02/23 15:15 115/80 05/02/23 15:15 36.3 C L 56 L 18 100 05/02/23 15:03 105/70 05/02/23 15:03 36.3 C L 56 L 18 98 05/02/23 15:00 36.3 C L 56 L 18 98 05/02/23 14:33 36.4 C L 61 19 05/02/23 14:33 116/77 05/02/23 14:03 36.4 C L 56 L 19 05/02/23 14:03 142/90 H 05/02/23 14:00 36.4 C L 56 L 19 05/02/23 16:00 56 L 05/02/23 15:56 05/02/23 14:00 56 L 05/02/23 13:33 36.5 C 56 L 19 05/02/23 13:33 132/87 05/02/23 13:30 36.5 C 56 L 19 05/02/23 13:03 131/87 05/02/23 13:03 36.5 C 60 19 05/02/23 13:00 36.5 C 56 L 18 99 05/02/23 12:34 36.5 C 59 L 18 05/02/23 12:34 139/90 05/02/23 12:33 36.4 C L 57 L 18 05/02/23 12:33 145/103 H 05/02/23 12:30 36.4 C L 60 18 05/02/23 12:23 159/103 H 05/02/23 12:23 36.4 C L 69 18 05/02/23 12:13 36.4 C L 75 19 05/02/23 12:13 160/94 H 05/02/23 12:03 36.4 C L 75 19 99 05/02/23 12:03 143/97 H 05/02/23 12:00 36.5 C 75 19 05/02/23 11:53 36.5 C 75 19 05/02/23 11:53 163/101 H 05/02/23 11:43 181/101 H 05/02/23 11:43 36.5 C 75 20 05/02/23 11:41 184/117 H 05/02/23 11:41 36.5 C 64 22 05/02/23 11:35 131/80 05/02/23 11:35 36.6 C 75 21 05/02/23 11:32 79/55 L 05/02/23 11:32 36.7 C 58 L 19 05/02/23 11:31 36.7 C 59 L 19 05/02/23 11:30 36.7 C 56 L 19 05/02/23 11:24 36.7 C 59 L 18 98 05/02/23 11:22 36.7 C 69 18 99 05/02/23 11:18 132/51 L 05/02/23 11:18 36.7 C 74 18 05/02/23 11:03 36.7 C 75 19 05/02/23 11:03 111/53 L 05/02/23 11:00 36.7 C 73 19 05/02/23 10:57 108/68 05/02/23 10:57 36.7 C 75 19 05/02/23 10:48 36.8 C 74 19 05/02/23 10:48 160/76 H 05/02/23 10:41 36.9 C 74 19 98 05/02/23 10:33 114/75 05/02/23 10:33 36.9 C 74 19 05/02/23 10:32 36.9 C 74 22 05/02/23 10:23 36.9 C 74 21 05/02/23 12:46 60 18 99 05/02/23 11:10 74 26 H 131/51 L 96 05/02/23 09:24 96 H 16 94 05/02/23 10:39 75 19 95 05/02/23 09:51 112/82 05/02/23 09:48 105 H 15 65/36 L 91 05/02/23 09:44 98 H 14 114/89 90 05/02/23 09:27 98 H 16 173/100 H 90 05/02/23 09:06 107 H 14 105/61 41 L 05/02/23 09:02 112 H 18 66 L 05/02/23 08:38 96 H 17 118/76 05/02/23 10:12 104 H 16 110/62 91 05/02/23 08:00 106 H 18 05/02/23 08:00 Pulse Ox O2 Del Method O2 Del Method FiO2 05/02/23 18:00 05/02/23 18:00 05/02/23 17:45 05/02/23 17:45 05/02/23 17:30 05/02/23 17:30 05/02/23 17:15 05/02/23 17:15 05/02/23 17:00 05/02/23 17:00 05/02/23 16:45 05/02/23 16:45 05/02/23 16:30 05/02/23 16:30 05/02/23 16:15 05/02/23 16:15 05/02/23 16:00 05/02/23 16:00 05/02/23 15:45 05/02/23 15:45 05/02/23 15:30 05/02/23 15:30 05/02/23 15:22 05/02/23 15:22 05/02/23 15:15 05/02/23 15:15 05/02/23 15:03 05/02/23 15:03 05/02/23 15:00 05/02/23 14:33 05/02/23 14:33 05/02/23 14:03 05/02/23 14:03 05/02/23 14:00 05/02/23 16:00 05/02/23 15:56 Mechanical Vent 60 05/02/23 14:00 05/02/23 13:33 05/02/23 13:33 05/02/23 13:30 05/02/23 13:03 05/02/23 13:03 05/02/23 13:00 05/02/23 12:34 05/02/23 12:34 05/02/23 12:33 05/02/23 12:33 05/02/23 12:30 05/02/23 12:23 05/02/23 12:23 05/02/23 12:13 05/02/23 12:13 05/02/23 12:03 05/02/23 12:03 05/02/23 12:00 05/02/23 11:53 05/02/23 11:53 05/02/23 11:43 05/02/23 11:43 05/02/23 11:41 05/02/23 11:41 05/02/23 11:35 05/02/23 11:35 05/02/23 11:32 05/02/23 11:32 05/02/23 11:31 05/02/23 11:30 05/02/23 11:24 05/02/23 11:22 05/02/23 11:18 05/02/23 11:18 05/02/23 11:03 05/02/23 11:03 05/02/23 11:00 05/02/23 10:57 05/02/23 10:57 05/02/23 10:48 05/02/23 10:48 05/02/23 10:41 05/02/23 10:33 05/02/23 10:33 05/02/23 10:32 05/02/23 10:23 05/02/23 12:46 60 05/02/23 11:10 Mechanical Vent 05/02/23 09:24 100 05/02/23 10:39 100 05/02/23 09:51 05/02/23 09:48 Mechanical Vent 05/02/23 09:44 Mechanical Vent 05/02/23 09:27 Mechanical Vent 05/02/23 09:06 BiPAP 05/02/23 09:02 BiPAP 05/02/23 08:38 05/02/23 10:12 Mechanical Vent 05/02/23 08:00 05/02/23 08:00 92 BiPAP Laboratory Results Laboratory Results - last 24 hr 05/02/23 05/02/23 05/02/23 01:40 01:40 01:40 WBC 4.84 RBC 4.20 Hgb 12.0 POC Hgb Hct 38.9 POC Hct MCV 92.6 MCH 28.6 MCHC 30.8 L RDW Std Deviation 65.0 H RDW Coeff of Brittany 19.7 H Plt Count 153 MPV 11.5 Immature Gran % (Auto) 0.6 Neut % (Auto) 73.2 Lymph % (Auto) 16.1 [place] % (Auto) 8.5 Eos % (Auto) 0.6 Baso % (Auto) 1.0 Neut # (Auto) 3.54 Lymph # (Auto) 0.78 L [place] # (Auto) 0.41 Eos # (Auto) 0.03 Baso # (Auto) 0.05 Immature Gran # (Auto) 0.03 PT INR APTT PTT Ratio Sample Site POC pH POC pCO2 POC pO2 POC HCO3 POC Base Excess ABG pH (Temp Correct) ABG pCO2 (Temp Corrct POC ABG pO2 at Pt Temp POC ABG O2 Sat Rush Test O2 Delivery Device POC O2 Rate Minute Ventilation POC FiO2 Tidal Volume PEEP POC Sodium Sodium 139 POC Potassium Potassium 3.9 POC Chloride Chloride 99 Carbon Dioxide 30 POC Total CO2 Anion Gap 10 POC Anion Gap POC BUN BUN 15 Creatinine 0.97 POC Creatinine Est Cr Clr Drug Dosing 119.2 Est GFR ( Amer) 72.0 Est GFR (Non-Af Amer) 62.2 BUN/Creatinine Ratio 15.5 Glucose 142 H POC Glucose POC Glucose (other) Estimat Average Glucose Hemoglobin A1c Lactate 3.5 H* Calcium 9.0 POC Ioniz Calcium Rashad Phosphorus Magnesium 1.7 Total Bilirubin 1.8 H Direct Bilirubin 0.7 H AST 32 ALT 10 Alkaline Phosphatase 155 H Total Creatine Kinase 147 Troponin I High Sens 13.3 B-Natriuretic Peptide Total Protein 8.1 Albumin 4.0 Procalcitonin TSH 3.494 Urine Color Urine Appearance Urine pH Ur Specific [place] Urine Protein Urine Glucose (UA) Urine Ketones Urine Blood Urine Nitrite Urine Bilirubin Urine Urobilinogen Ur Leukocyte Esterase Urine WBC (Auto) Urine RBC (Auto) U Hyaline Cast (Auto) U Epithel Cells (Auto) Urine Bacteria (Auto) Nasal Screen MRSA (PCR) Adenovirus (PCR) B. pertussis DNA (PCR) B.parapertussis DNA PCR C. pneumoniae DNA (PCR) Coronavirus OC43 (PCR) Coronavirus HKU1 (PCR) Coronavirus 229E (PCR) SARS-CoV-2 (PCR) Coronavirus NL63 (PCR) Human Metapneumovir PCR Influenza Type A (PCR) Influenza Type B (PCR) M. pneumoniae (PCR) Parainfluenza 1 (PCR) Parainfluenza 2 (PCR) Parainfluenza 3 (PCR) Parainfluenza 4 (PCR) RSV (PCR) Entero/Rhino (PCR) Blood Type Antibody Screen 05/02/23 05/02/23 05/02/23 01:40 01:40 01:40 WBC RBC Hgb POC Hgb Hct POC Hct MCV MCH MCHC RDW Std Deviation RDW Coeff of Brittany Plt Count MPV Immature Gran % (Auto) Neut % (Auto) Lymph % (Auto) [place] % (Auto) Eos % (Auto) Baso % (Auto) Neut # (Auto) Lymph # (Auto) [place] # (Auto) Eos # (Auto) Baso # (Auto) Immature Gran # (Auto) PT 15.0 H INR 1.4 H APTT 26.4 PTT Ratio 0.9 Sample Site POC pH POC pCO2 POC pO2 POC HCO3 POC Base Excess ABG pH (Temp Correct) ABG pCO2 (Temp Corrct POC ABG pO2 at Pt Temp POC ABG O2 Sat Rush Test O2 Delivery Device POC O2 Rate Minute Ventilation POC FiO2 Tidal Volume PEEP POC Sodium Sodium POC Potassium Potassium POC Chloride Chloride Carbon Dioxide POC Total CO2 Anion Gap POC Anion Gap POC BUN BUN Creatinine POC Creatinine Est Cr Clr Drug Dosing Est GFR ( Amer) Est GFR (Non-Af Amer) BUN/Creatinine Ratio Glucose POC Glucose POC Glucose (other) Estimat Average Glucose Hemoglobin A1c Lactate Calcium POC Ioniz Calcium Rashad Phosphorus Magnesium Total Bilirubin Direct Bilirubin AST ALT Alkaline Phosphatase Total Creatine Kinase Cancelled Troponin I High Sens B-Natriuretic Peptide Total Protein Albumin Procalcitonin < 0.05 TSH Cancelled Urine Color Urine Appearance Urine pH Ur Specific [place] Urine Protein Urine Glucose (UA) Urine Ketones Urine Blood Urine Nitrite Urine Bilirubin Urine Urobilinogen Ur Leukocyte Esterase Urine WBC (Auto) Urine RBC (Auto) U Hyaline Cast (Auto) U Epithel Cells (Auto) Urine Bacteria (Auto) Nasal Screen MRSA (PCR) Adenovirus (PCR) B. pertussis DNA (PCR) B.parapertussis DNA PCR C. pneumoniae DNA (PCR) Coronavirus OC43 (PCR) Coronavirus HKU1 (PCR) Coronavirus 229E (PCR) SARS-CoV-2 (PCR) Coronavirus NL63 (PCR) Human Metapneumovir PCR Influenza Type A (PCR) Influenza Type B (PCR) M. pneumoniae (PCR) Parainfluenza 1 (PCR) Parainfluenza 2 (PCR) Parainfluenza 3 (PCR) Parainfluenza 4 (PCR) RSV (PCR) Entero/Rhino (PCR) Blood Type Antibody Screen 05/02/23 05/02/23 05/02/23 01:40 01:40 01:40 WBC RBC Hgb POC Hgb Hct POC Hct MCV MCH MCHC RDW Std Deviation RDW Coeff of Brittany Plt Count MPV Immature Gran % (Auto) Neut % (Auto) Lymph % (Auto) [place] % (Auto) Eos % (Auto) Baso % (Auto) Neut # (Auto) Lymph # (Auto) [place] # (Auto) Eos # (Auto) Baso # (Auto) Immature Gran # (Auto) PT INR APTT PTT Ratio Sample Site POC pH POC pCO2 POC pO2 POC HCO3 POC Base Excess ABG pH (Temp Correct) ABG pCO2 (Temp Corrct POC ABG pO2 at Pt Temp POC ABG O2 Sat Rush Test O2 Delivery Device POC O2 Rate Minute Ventilation POC FiO2 Tidal Volume PEEP POC Sodium Sodium POC Potassium Potassium POC Chloride Chloride Carbon Dioxide POC Total CO2 Anion Gap POC Anion Gap POC BUN BUN Creatinine POC Creatinine Est Cr Clr Drug Dosing Est GFR ( Amer) Est GFR (Non-Af Amer) BUN/Creatinine Ratio Glucose POC Glucose POC Glucose (other) Estimat Average Glucose 154 Hemoglobin A1c 7.0 H Lactate Calcium POC Ioniz Calcium Rashad Phosphorus Magnesium Total Bilirubin Direct Bilirubin AST ALT Alkaline Phosphatase Total Creatine Kinase Troponin I High Sens Cancelled B-Natriuretic Peptide 469 H Total Protein Albumin Procalcitonin TSH Urine Color Urine Appearance Urine pH Ur Specific [place] Urine Protein Urine Glucose (UA) Urine Ketones Urine Blood Urine Nitrite Urine Bilirubin Urine Urobilinogen Ur Leukocyte Esterase Urine WBC (Auto) Urine RBC (Auto) U Hyaline Cast (Auto) U Epithel Cells (Auto) Urine Bacteria (Auto) Nasal Screen MRSA (PCR) Adenovirus (PCR) B. pertussis DNA (PCR) B.parapertussis DNA PCR C. pneumoniae DNA (PCR) Coronavirus OC43 (PCR) Coronavirus HKU1 (PCR) Coronavirus 229E (PCR) SARS-CoV-2 (PCR) Coronavirus NL63 (PCR) Human Metapneumovir PCR Influenza Type A (PCR) Influenza Type B (PCR) M. pneumoniae (PCR) Parainfluenza 1 (PCR) Parainfluenza 2 (PCR) Parainfluenza 3 (PCR) Parainfluenza 4 (PCR) RSV (PCR) Entero/Rhino (PCR) Blood Type Antibody Screen 05/02/23 05/02/23 05/02/23 01:52 05:11 06:33 WBC RBC Hgb POC Hgb 14.3 Hct POC Hct 42 MCV MCH MCHC RDW Std Deviation RDW Coeff of Brittany Plt Count MPV Immature Gran % (Auto) Neut % (Auto) Lymph % (Auto) [place] % (Auto) Eos % (Auto) Baso % (Auto) Neut # (Auto) Lymph # (Auto) [place] # (Auto) Eos # (Auto) Baso # (Auto) Immature Gran # (Auto) PT INR APTT PTT Ratio Sample Site POC pH POC pCO2 POC pO2 POC HCO3 POC Base Excess ABG pH (Temp Correct) ABG pCO2 (Temp Corrct POC ABG pO2 at Pt Temp POC ABG O2 Sat Rush Test O2 Delivery Device POC O2 Rate Minute Ventilation POC FiO2 Tidal Volume PEEP POC Sodium 141 Sodium POC Potassium 4.0 Potassium POC Chloride 99 L Chloride Carbon Dioxide POC Total CO2 31 Anion Gap POC Anion Gap 16.0 POC BUN 16 BUN Creatinine POC Creatinine 1.0 Est Cr Clr Drug Dosing Est GFR ( Amer) Est GFR (Non-Af Amer) BUN/Creatinine Ratio Glucose POC Glucose 132 H POC Glucose (other) 146 H Estimat Average Glucose Hemoglobin A1c Lactate 2.3 H* Calcium POC Ioniz Calcium Rashad 1.04 L Phosphorus Magnesium Total Bilirubin Direct Bilirubin AST ALT Alkaline Phosphatase Total Creatine Kinase Troponin I High Sens B-Natriuretic Peptide Total Protein Albumin Procalcitonin TSH Urine Color Urine Appearance Urine pH Ur Specific [place] Urine Protein Urine Glucose (UA) Urine Ketones Urine Blood Urine Nitrite Urine Bilirubin Urine Urobilinogen Ur Leukocyte Esterase Urine WBC (Auto) Urine RBC (Auto) U Hyaline Cast (Auto) U Epithel Cells (Auto) Urine Bacteria (Auto) Nasal Screen MRSA (PCR) Adenovirus (PCR) B. pertussis DNA (PCR) B.parapertussis DNA PCR C. pneumoniae DNA (PCR) Coronavirus OC43 (PCR) Coronavirus HKU1 (PCR) Coronavirus 229E (PCR) SARS-CoV-2 (PCR) Coronavirus NL63 (PCR) Human Metapneumovir PCR Influenza Type A (PCR) Influenza Type B (PCR) M. pneumoniae (PCR) Parainfluenza 1 (PCR) Parainfluenza 2 (PCR) Parainfluenza 3 (PCR) Parainfluenza 4 (PCR) RSV (PCR) Entero/Rhino (PCR) Blood Type Antibody Screen 05/02/23 05/02/23 05/02/23 06:35 10:15 12:36 WBC RBC Hgb POC Hgb 13.3 Hct POC Hct 39 MCV MCH MCHC RDW Std Deviation RDW Coeff of Brittany Plt Count MPV Immature Gran % (Auto) Neut % (Auto) Lymph % (Auto) [place] % (Auto) Eos % (Auto) Baso % (Auto) Neut # (Auto) Lymph # (Auto) [place] # (Auto) Eos # (Auto) Baso # (Auto) Immature Gran # (Auto) PT INR APTT PTT Ratio Sample Site Art Line POC pH 7.33 L POC pCO2 64 H POC pO2 > 420 H POC HCO3 34 H POC Base Excess 8.0 H ABG pH (Temp Correct) 7.339 L ABG pCO2 (Temp Corrct 63 H POC ABG pO2 at Pt Temp 453 POC ABG O2 Sat 100.0 H Rush Test NA O2 Delivery Device Ventilator POC O2 Rate 18 Minute Ventilation 6 POC FiO2 100 Tidal Volume 330 PEEP 25 POC Sodium 140 Sodium POC Potassium 3.8 Potassium POC Chloride Chloride Carbon Dioxide POC Total CO2 36 H Anion Gap POC Anion Gap POC BUN BUN Creatinine POC Creatinine Est Cr Clr Drug Dosing Est GFR ( Amer) Est GFR (Non-Af Amer) BUN/Creatinine Ratio Glucose POC Glucose POC Glucose (other) Estimat Average Glucose Hemoglobin A1c Lactate Calcium POC Ioniz Calcium Rashad Phosphorus Magnesium Total Bilirubin Direct Bilirubin AST ALT Alkaline Phosphatase Total Creatine Kinase Troponin I High Sens B-Natriuretic Peptide Total Protein Albumin Procalcitonin TSH Urine Color Yellow Urine Appearance Clear Urine pH 5.0 Ur Specific [place] 1.010 Urine Protein Negative Urine Glucose (UA) Negative Urine Ketones Negative Urine Blood 1+ H Urine Nitrite Negative Urine Bilirubin Negative Urine Urobilinogen Negative Ur Leukocyte Esterase Negative Urine WBC (Auto) 1-5 Urine RBC (Auto) 5-10 H U Hyaline Cast (Auto) 1-5 U Epithel Cells (Auto) >30 H Urine Bacteria (Auto) Negative Nasal Screen MRSA (PCR) Negative Adenovirus (PCR) B. pertussis DNA (PCR) B.parapertussis DNA PCR C. pneumoniae DNA (PCR) Coronavirus OC43 (PCR) Coronavirus HKU1 (PCR) Coronavirus 229E (PCR) SARS-CoV-2 (PCR) Coronavirus NL63 (PCR) Human Metapneumovir PCR Influenza Type A (PCR) Influenza Type B (PCR) M. pneumoniae (PCR) Parainfluenza 1 (PCR) Parainfluenza 2 (PCR) Parainfluenza 3 (PCR) Parainfluenza 4 (PCR) RSV (PCR) Entero/Rhino (PCR) Blood Type Antibody Screen 05/02/23 05/02/23 05/02/23 14:18 16:25 17:49 WBC RBC Hgb POC Hgb Hct POC Hct MCV MCH MCHC RDW Std Deviation RDW Coeff of Brittany Plt Count MPV Immature Gran % (Auto) Neut % (Auto) Lymph % (Auto) [place] % (Auto) Eos % (Auto) Baso % (Auto) Neut # (Auto) Lymph # (Auto) [place] # (Auto) Eos # (Auto) Baso # (Auto) Immature Gran # (Auto) PT INR APTT PTT Ratio Sample Site POC pH POC pCO2 POC pO2 POC HCO3 POC Base Excess ABG pH (Temp Correct) ABG pCO2 (Temp Corrct POC ABG pO2 at Pt Temp POC ABG O2 Sat Rush Test O2 Delivery Device POC O2 Rate Minute Ventilation POC FiO2 Tidal Volume PEEP POC Sodium Sodium POC Potassium Potassium POC Chloride Chloride Carbon Dioxide POC Total CO2 Anion Gap POC Anion Gap POC BUN BUN Creatinine POC Creatinine Est Cr Clr Drug Dosing Est GFR ( Amer) Est GFR (Non-Af Amer) BUN/Creatinine Ratio Glucose POC Glucose POC Glucose (other) 147 H 150 H Estimat Average Glucose Hemoglobin A1c Lactate Calcium POC Ioniz Calcium Rashad Phosphorus Magnesium Total Bilirubin Direct Bilirubin AST ALT Alkaline Phosphatase Total Creatine Kinase Troponin I High Sens B-Natriuretic Peptide Total Protein Albumin Procalcitonin TSH Urine Color Urine Appearance Urine pH Ur Specific [place] Urine Protein Urine Glucose (UA) Urine Ketones Urine Blood Urine Nitrite Urine Bilirubin Urine Urobilinogen Ur Leukocyte Esterase Urine WBC (Auto) Urine RBC (Auto) U Hyaline Cast (Auto) U Epithel Cells (Auto) Urine Bacteria (Auto) Nasal Screen MRSA (PCR) Adenovirus (PCR) B. pertussis DNA (PCR) B.parapertussis DNA PCR C. pneumoniae DNA (PCR) Coronavirus OC43 (PCR) Coronavirus HKU1 (PCR) Coronavirus 229E (PCR) SARS-CoV-2 (PCR) Coronavirus NL63 (PCR) Human Metapneumovir PCR Influenza Type A (PCR) Influenza Type B (PCR) M. pneumoniae (PCR) Parainfluenza 1 (PCR) Parainfluenza 2 (PCR) Parainfluenza 3 (PCR) Parainfluenza 4 (PCR) RSV (PCR) Entero/Rhino (PCR) Blood Type O Positive Antibody Screen NEGATIVE 05/02/23 05/02/23 17:49 Unknown WBC RBC Hgb POC Hgb Hct POC Hct MCV MCH MCHC RDW Std Deviation RDW Coeff of Brittany Plt Count MPV Immature Gran % (Auto) Neut % (Auto) Lymph % (Auto) [place] % (Auto) Eos % (Auto) Baso % (Auto) Neut # (Auto) Lymph # (Auto) [place] # (Auto) Eos # (Auto) Baso # (Auto) Immature Gran # (Auto) PT INR APTT PTT Ratio Sample Site POC pH POC pCO2 POC pO2 POC HCO3 POC Base Excess ABG pH (Temp Correct) ABG pCO2 (Temp Corrct POC ABG pO2 at Pt Temp POC ABG O2 Sat Rush Test O2 Delivery Device POC O2 Rate Minute Ventilation POC FiO2 Tidal Volume PEEP POC Sodium Sodium 139 POC Potassium Potassium 3.9 POC Chloride Chloride 101 Carbon Dioxide 28 POC Total CO2 Anion Gap 10 POC Anion Gap POC BUN BUN 17 Creatinine 1.10 POC Creatinine Est Cr Clr Drug Dosing 105.1 Est GFR ( Amer) 61.9 Est GFR (Non-Af Amer) 53.4 BUN/Creatinine Ratio 15.5 Glucose 148 H POC Glucose POC Glucose (other) Estimat Average Glucose Hemoglobin A1c Lactate Calcium 8.6 POC Ioniz Calcium Rashad Phosphorus 4.5 Magnesium 1.6 L Total Bilirubin Direct Bilirubin AST ALT Alkaline Phosphatase Total Creatine Kinase Troponin I High Sens B-Natriuretic Peptide Total Protein Albumin Procalcitonin TSH Urine Color Urine Appearance Urine pH Ur Specific [place] Urine Protein Urine Glucose (UA) Urine Ketones Urine Blood Urine Nitrite Urine Bilirubin Urine Urobilinogen Ur Leukocyte Esterase Urine WBC (Auto) Urine RBC (Auto) U Hyaline Cast (Auto) U Epithel Cells (Auto) Urine Bacteria (Auto) Nasal Screen MRSA (PCR) Adenovirus (PCR) DETECTED A* B. pertussis DNA (PCR) Not Detected B.parapertussis DNA PCR Not Detected C. pneumoniae DNA (PCR) Not Detected Coronavirus OC43 (PCR) Not Detected Coronavirus HKU1 (PCR) Not Detected Coronavirus 229E (PCR) Not Detected SARS-CoV-2 (PCR) DETECTED A* Coronavirus NL63 (PCR) Not Detected Human Metapneumovir PCR Not Detected Influenza Type A (PCR) Not Detected Influenza Type B (PCR) Not Detected M. pneumoniae (PCR) Not Detected Parainfluenza 1 (PCR) Not Detected Parainfluenza 2 (PCR) Not Detected Parainfluenza 3 (PCR) Not Detected Parainfluenza 4 (PCR) Not Detected RSV (PCR) Not Detected Entero/Rhino (PCR) Not Detected Blood Type Antibody Screen Diagnostic Findings Serial EKGs since admission very low voltage with fine A-fib flutter Transesophageal echocardiogram 05/02/2023 Severe right ventricular enlargement hypertrophy with diffuse hypokinesis, massive right atrial enlargement with severe pulmonary hypertension moderate to severe tricuspid insufficiency Left ventricle low normal LV function EF 50-55% with septal compression secondary to right ventricular enlargement
[2023-05-02 20:50] LABS: iSTAT Art Bld Gas pCO2 Correct 53 mmHg (35-46); iSTAT Art Bld Gas pH Corrected 7.381 (7.35-7.45); iSTAT Arterial Blood Gas HCO3 32 meg/L (19-24); iSTAT Arterial Blood Gas pCO2 56 mmHg (35-46); iSTAT Arterial Blood Gas pH 7.36 (7.35-7.45); iSTAT Arterial Blood Gas pO2 69 mmHg (80-95); iSTAT Arterial Blood Gas pO2 C 63; iSTAT Carbon Dioxide 34 mmol/L (24-31); iSTAT FiO2 50 %; iSTAT Hematocrit 41 % (37-47); iSTAT Hemoglobin 13.9 g/dl (12.0-16.0); iSTAT Potassium 3.6 mmol/L (3.3-5.0); iSTAT Site Art Line; iSTAT Sodium 139 mmol/L (135-144)
[2023-05-02] MEDS ORDERED: LOSARTAN POTASSIUM 50 MG TAB PO SCH (21:00)
[2023-05-02] MEDS ORDERED: DOXYCYCLINE HYCLATE 100 MG CAP PO SCH (21:00)
[2023-05-02] MEDS ORDERED: MONTELUKAST SODIUM 10 MG TABLET PO SCH (21:00)
[2023-05-02 23:30] LABS: iSTAT Art Bld Gas pCO2 Correct 57 mmHg (35-46); iSTAT Art Bld Gas pH Corrected 7.375 (7.35-7.45); iSTAT Arterial Blood Gas HCO3 34 meg/L (19-24); iSTAT Arterial Blood Gas pCO2 60 mmHg (35-46); iSTAT Arterial Blood Gas pH 7.36 (7.35-7.45); iSTAT Arterial Blood Gas pO2 289 mmHg (80-95); iSTAT Arterial Blood Gas pO2 C 284; iSTAT Carbon Dioxide 36 mmol/L (24-31); iSTAT FiO2 100 %; iSTAT Hematocrit 40 % (37-47); iSTAT Hemoglobin 13.6 g/dl (12.0-16.0); iSTAT Potassium 3.5 mmol/L (3.3-5.0); iSTAT Site Art Line; iSTAT Sodium 140 mmol/L (135-144)
[2023-05-02 23:53] LABS: A calco-baum cmplx NotReported Not Detected (NotDetected); Bact fragilis Not Reported Not Detected (NotDetected); C auris Not Reported Not Detected (NotDetected); Calbicans Not Reported Not Detected (NotDetected); Candida glabrata Not Reported Not Detected (NotDetected); Candida krusei Not Reported Not Detected (NotDetected); Cneoformans/gatti Not Reported Not Detected (NotDetected); Cparapsilosis Not Reported Not Detected (NotDetected); E cloacae compx Not Reported Not Detected (NotDetected); Efaecalis Not Reported Not Detected (NotDetected); Efaecium Not Reported Not Detected (NotDetected); Enterobacterales Not Reported Not Detected (NotDetected); Escherichia coli Not Reported Not Detected (NotDetected); H influenzae Not Reported Not Detected (NotDetected); K aerogenes Not Reported Not Detected (NotDetected); Koxytoca Not Reported Not Detected (NotDetected); Kpneumoniae grp Not Reported Not Detected (NotDetected); Lmonocyt Not Reported Not Detected (NotDetected); N meningitidis Not Reported Not Detected (NotDetected); P aeruginosa Not Reported Not Detected (NotDetected); Proteus spp Not Reported Not Detected (NotDetected); Salmonella spp Not Reported Not Detected (NotDetected); Smarcescens Not Reported Not Detected (NotDetected); Staph lugdunensis Not Reported Not Detected (NotDetected); Staph spp. Not Reported DETECTED (NotDetected); Staphaureus Not Reported Not Detected (NotDetected); Staphepi Not Reported DETECTED (NotDetected); Stenmaltophilia Not Reported Not Detected (NotDetected); Strep agal(GrpB) Not Reported Not Detected (NotDetected); Strep pneum Not Reported Not Detected (NotDetected); Strep pyog (GrpA) Not Reported Not Detected (NotDetected); Strep spp Not Reported Not Detected (NotDetected)
[2023-05-02 23:57] LABS: Staphylococcus epidermidis DETECTED (NotDetected); Staphylococcus spp. DETECTED (NotDetected); mecAC Resistant Gene DETECTED (NotDetected)
[2023-05-03 01:02] LABS: Partial Thromboplastin Ratio > 4.9
[2023-05-03 01:09] LABS: Partial Thromboplastin Time > 139.0 Seconds (21.0-31.0)
--- NOTE | 2023-05-03 01:26 | Ultrasound Report ---
Exam(s): US VENOUS BILATERAL LOWER EXTREMITIES EXAM: US Duplex Bilateral Lower Extremities Veins CLINICAL HISTORY: Reason for exam: r/o dvt. TECHNIQUE: Real-time duplex ultrasound scan of the bilateral lower extremity veins integrating B-mode two-dimensional vascular structure, Doppler spectral analysis, color flow Doppler imaging and compression. COMPARISON: No relevant prior studies available. FINDINGS: Limitations: Evaluation is limited by patient body habitus. Right deep veins: No DVT in the right common femoral or proximal left superficial femoral vein. Mid to distal left superficial femoral and popliteal veins are not well delineated. The calf veins are predominantly obscured.. Right superficial veins: Unremarkable. No thrombus in the saphenofemoral junction. Left deep veins: No DVT in the left common femoral vein or proximal left superficial femoral vein. The mid to distal left superficial femoral and popliteal veins are not well delineated. The calf veins are predominantly obscured. Left superficial veins: Unremarkable. No thrombus in the saphenofemoral junction. Soft tissues: Subcutaneous edema noted throughout the left lower extremity. No popliteal cyst. IMPRESSION: 1. Near nondiagnostic examination secondary to patient body habitus and edema. The bilateral common femoral and proximal superficial femoral veins are patent. Mid to distal superficial femoral veins and popliteal veins are not definitively delineated. 2. Subcutaneous edema noted involving both lower extremities. Electronically signed by: Christoph Adhikari MD 05/03/23 01:25 AM
[2023-05-03] MEDS ORDERED: cefTRIAXone SODIUM 2,000 MG in DEXTROSE 5 % MINI-B 50 ML IV SCH (02:00)
[2023-05-03] MEDS ORDERED: DOXYCYCLINE HYCLATE 100 MG in DEXTROSE 5% MINI-B 100 ML IV SCH (02:00)
[2023-05-03 03:21] LABS: Partial Thromboplastin Ratio > 4.9
[2023-05-03 03:29] LABS: Partial Thromboplastin Time > 139.0 Seconds (21.0-31.0)
[2023-05-03 04:09] LABS: Basophils # (auto) 0.07 K/uL (0.00-0.20); Basophils % (auto) 1.2 %; Eosinophils # (auto) 0.12 K/uL (0.00-0.50); Hematocrit (blood only) 36.8 % (37.0-47.0); Hemoglobin 11.5 g/dl (12.0-16.0); Immature Granulocytes # (auto) 0.03 K/uL (0.01-0.20); Immature Granulocytes % (auto) 0.5 %; Lymphocytes % (auto) 16.8 %; Mean Corpuscular Hemoglobin 28.5 pg (25.0-34.0); Mean Corpuscular Hgb Conc 31.3 g/dL (32.0-36.0); Mean Corpuscular Volume 91.3 fL (80.0-100.0); Mean Platelet Volume 11.2 fL (9.4-12.4); Monocytes # (auto) 0.61 K/uL (0.11-0.59); Monocytes % (auto) 10.2 %; Neutrophils # (auto) 4.13 K/uL (1.40-6.50); Neutrophils % (auto) 69.3 %; Nucleated RBC # (auto) 0.02 K/uL (0.00-0.12); Nucleated RBC % (auto) 0.3 %; Platelet Count 160 K/uL (130-400); RDW Coefficient of Variation 19.3 % (11.5-14.5); RDW Standard Deviation 62.5 fL (36.4-46.3); Red Blood Count 4.03 M/uL (4.20-5.40); White Blood Count 5.96 K/ul (4.8-10.8)
[2023-05-03 04:32] LABS: Albumin Level 3.5 gm/dl (3.4-5.0); BUN Creatinine Ratio 15.2 (10-20); Bilirubin Direct 0.6 mg/dl (0-0.2); Bilirubin,Total 1.6 mg/dl (0.2-1.0); Calcium 8.5 mg/dl (8.6-10.3); Chol HDL Ratio 2.9 (0-5); Creatinine Clr Calc Pharmacy 103.2 ml/min; Est GFR (African American) 60.5 ml/min; Est GFR (Non-African American) 52.2 ml/min; Magnesium 1.8 mg/dl (1.7-2.4); Phosphorus 3.9 mg/dl (2.5-4.9); Potassium 3.5 mmol/L (3.5-5.1); Total Protein 6.8 gm/dl (6.0-8.3)
[2023-05-03 05:03] LABS: INR 1.5 (0.9-1.1); Partial Thromboplastin Ratio 2.2; Prothrombin Time 16.1 Seconds (9.0-12.0)
[2023-05-03 05:04] LABS: Partial Thromboplastin Time 63.2 Seconds (21.0-31.0)
[2023-05-03] MEDS ORDERED: STAT IV STA (06:04)
[2023-05-03 06:23] LABS: iSTAT Art Bld Gas pCO2 Correct 51 mmHg (35-46); iSTAT Art Bld Gas pH Corrected 7.422 (7.35-7.45); iSTAT Arterial Blood Gas HCO3 33 meg/L (19-24); iSTAT Arterial Blood Gas pCO2 53 mmHg (35-46); iSTAT Arterial Blood Gas pH 7.41 (7.35-7.45); iSTAT Arterial Blood Gas pO2 87 mmHg (80-95); iSTAT Arterial Blood Gas pO2 C 81; iSTAT Carbon Dioxide 35 mmol/L (24-31); iSTAT FiO2 50 %; iSTAT Hematocrit 38 % (37-47); iSTAT Hemoglobin 12.9 g/dl (12.0-16.0); iSTAT Potassium 3.4 mmol/L (3.3-5.0); iSTAT Site Art Line; iSTAT Sodium 139 mmol/L (135-144)
[2023-05-03] MEDS: PANTOprazole 40 MG TAB PO SCH (06:27)
[2023-05-03] MEDS: INSULIN ASPART PER UNIT CHARGE SC SCH ×3 (06:27→17:56)
[2023-05-03] MEDS: MAGNESIUM SULFATE / D5W 1 GM/100 ML BAG IV SCH ×2 (06:28→08:41)
[2023-05-03] MEDS: CALCIUM GLUCONATE 10% 1,000 MG in SODIUM CHLOR 0.9% MINI-B 50 ML IV SCH ×2 (06:28→06:41)
[2023-05-03] MEDS: POTASSIUM CHLORIDE / WTR 20 MEQ/100 ML PLCT IV SCH ×2 (06:28→08:02)
--- NOTE | 2023-05-03 07:35 | XRay Report ---
XR chest 1V portable HISTORY: 62 years-old Female intubation acute respiratory failure COMPARISON: 05/02/2023 TECHNIQUE: AP view of the chest FINDINGS: Cardiac silhouette is enlarged. Endotracheal tube overlies the midline, 2.8 cm superior to the emilee . Right IJ central venous catheter is in unchanged positioning. No pneumothorax. Patient is rotated t o the left. Pulmonary vascular congestion with probable small pleural effusions. Bones appear grossly intact. The enteric tube appears to have been removed. IMPRESSION: 1. Line and tube placement as above. 2. No pneumothorax. 3. Cardiomegaly with pulmonary vascular congestion. 4. Probable small pleural effusions. ACT 112: Negative or not required by law. The above report was generated using voice recognition software. It may contain grammatical, syntax o r spelling errors. Electronically signed by: Juan Manuel Rodriguez M.D. 05/03/2023 7:33 AM
[2023-05-03] MEDS: HEPARIN SODIUM/DEXTROSE 25,000 UNITS/500 ML BAG IV SCH (07:41)
[2023-05-03] MEDS: DULoxetine HCL 30 MG CAP PO SCH (08:42)
[2023-05-03] MEDS: ASPIRIN 81 MG ECTAB PO SCH (08:42)
[2023-05-03] MEDS: ROSUVASTATIN CALCIUM 10 MG TAB PO SCH (08:43)
[2023-05-03] MEDS: METOPROLOL TARTRATE 25 MG TAB PO SCH ×2 (08:43→21:15)
[2023-05-03] MEDS: FUROSEMIDE 40 MG/4 ML VIAL IV SCH ×2 (08:44→16:30)
--- NOTE | 2023-05-03 09:08 | Critical Care Progress Note ---
Date of Service May 03, 2023 Assessment & Plan (1) Acute cor pulmonale: Plan: Patient is critically ill due to acute hypoxic respiratory failure secondary to acute cor pulmonale and viral pneumonia Neuro: Sedation with Versed and fentanyl -Avoiding propofol secondary to negative inotropic effects -Daily awakening trial Cymbalta 30 mg every morning: Home medication Cardiovascular: Acute cor pulmonale: -Suspect there is a significant chronic portion Of multiple groups: Group 2, possibly group 3, questionable group 4 -Venous duplex reviewed, near nondiagnostic no obvious proximal DVT -Empiric heparinization: Risk of thromboembolic disease greater than versus risk of hemorrhage at the present time History hypertension -Metoprolol 12.5 mg twice daily -Cozaar 100 mg by mouth nightly Pulmonary: Adenovirus and COVID 19 virus positive, viral pneumonia -Supportive care, pulmonary toilet -Doxycycline and Rocephin for community-acquired pneumonia with atypical coverage (no risk factors for Pseudomonas) Acute hypoxic and hypercapnic respiratory failure -Would optimally utilize esophageal pressure monitors, patient with massive morbid obesity and I suspect that her transmural pressure is low despite being on high PEEP levels History of obstructive sleep apnea Unable to obtain advanced imaging: CT as patient habitus too large to be accommodated by our CT scanner as confirmed by nursing staff utilizing measurement devices Abdomen Morbid obesity -Lipids and triglycerides reviewed -Start tube feeding per dietary Mildly elevated bilirubin direct and total -Minimal elevation significance unclear no additional work-up planned at this time Minimally elevated alkaline phosphatase -Minimal elevation significance unclear no additional work-up planned at this time Renal: Rendon catheter for accurate I's and O's -Approximately 2 L negative - diuresis, goal net negative -20 mEq potassium daily, additional multivitamin, 40 mg Lasix twice daily, one-time dose Diamox 500 mg recheck BMP tonight Lower potassium, will be diuresing so will supplement potassium enterally Hypocalcemia: Mild Optimize magnesium to level greater than 2 Hematology: Mildly elevated INR: 1.5 -Unclear significance, patient will probably require systemic anticoagulation as we cannot rule out underlying cause of pulmonary hypertension obviously there is obesity hypoventilation and chronic hypoxia/hypercarbia however chronic VTE cannot be ruled out Anemia: Mild Infectious disease Viral pneumonia Procalcitonin negative, no radiographic infiltrates, will discontinue antibiotics Blood cultures pending -Bronchoscopy contraindicated with COVID-19 positivity Endocrine ICU glycemic control protocol Elevated A1c 7.0 with type 2 diabetes Lines: Right internal jugular central venous catheter placed 05/02 Right axillary arterial catheter placed 05/02 CODE STATUS: Full code (2) Respiratory failure with hypercapnia: (3) Hypertension: (4) Diabetes: (5) Morbid obesity with BMI of 70 and over, adult: (6) COVID-19: (7) Adenoviral bronchitis: (8) Viral pneumonia: Admission and Anticipated Discharge Date Admission Date: May 02, 2023 Supervising Physician Co-Signing Physician Notes I have personally spent 40 minutes of critical care time in the direct management of this patient. This is a life/limb threatening event. This includes time spent evaluating patient, direct bedside care, chart review, placing orders, interpretation of diagnostic studies, discussion with consul tants, patient, and/or family members regarding treatment decisions, as well as other required patient management activities. This time is exclusive of all separately billable procedures, and teaching time and separate from and in addition to any other critical care service time. Subjective No overnight events. Review of Systems Review of Systems: Unobtainable due to endotracheal tube Physical Exam Physical Exam: Limited examination, ventilator settings reviewed, normal sinus rhythm on bedside monitor. Results & Data Results & Data Vital Signs (Past 12 Hours) Vital Signs Temp Pulse Resp BP Pulse Ox Pulse Ox O2 Del Method 05/03/23 07:13 75 18 99 05/03/23 07:01 36.1 C L 75 18 05/03/23 07:01 118/89 05/03/23 07:00 36.1 C L 75 18 100 05/03/23 06:46 36.1 C L 75 18 100 05/03/23 06:46 96/81 L 05/03/23 06:45 36.1 C L 75 18 05/03/23 06:30 36.0 C L 75 18 100 05/03/23 06:30 126/89 05/03/23 06:15 36.0 C L 75 18 05/03/23 06:15 117/85 05/03/23 06:00 36.0 C L 75 18 05/03/23 06:00 129/89 05/03/23 05:45 36.0 C L 75 18 05/03/23 05:45 121/87 05/03/23 05:30 36.0 C L 70 18 05/03/23 05:30 121/87 05/03/23 05:15 36.0 C L 68 18 100 05/03/23 05:15 115/80 05/03/23 05:00 36.0 C L 68 18 05/03/23 05:00 118/80 05/03/23 04:45 36.0 C L 71 18 98 05/03/23 04:45 124/83 05/03/23 04:30 36.0 C L 68 18 100 05/03/23 04:30 106/71 05/03/23 04:15 36.0 C L 66 18 05/03/23 04:15 112/78 05/03/23 04:00 36.0 C L 72 18 100 05/03/23 04:00 114/81 05/03/23 03:45 36.0 C L 69 18 05/03/23 03:45 109/78 05/03/23 04:00 05/03/23 04:00 75 112/70 05/03/23 03:30 36.0 C L 69 18 05/03/23 03:30 106/70 05/03/23 03:15 36.0 C L 72 18 100 05/03/23 03:15 118/83 05/03/23 03:00 36.0 C L 73 18 100 05/03/23 03:00 118/86 05/03/23 02:45 36.0 C L 76 18 99 05/03/23 02:45 113/81 05/03/23 02:30 36.0 C L 73 18 97 05/03/23 02:30 125/74 05/03/23 02:15 36.0 C L 75 18 100 05/03/23 02:15 104/77 05/03/23 02:00 35.9 C L 57 L 18 100 05/03/23 02:00 110/84 05/03/23 01:45 35.9 C L 68 18 100 05/03/23 01:45 124/82 05/03/23 01:30 35.9 C L 61 18 99 05/03/23 01:30 118/74 05/03/23 01:15 113/74 05/03/23 02:25 18 05/03/23 01:15 35.9 C L 59 L 18 100 05/03/23 01:00 35.9 C L 57 L 18 100 05/03/23 01:00 111/74 05/03/23 00:45 35.9 C L 62 18 100 05/03/23 00:45 110/73 05/03/23 00:30 35.9 C L 69 18 100 05/03/23 00:30 133/79 05/03/23 00:15 35.9 C L 59 L 18 100 05/03/23 00:15 116/75 05/03/23 00:00 35.9 C L 59 L 18 100 05/03/23 00:00 113/72 05/02/23 23:45 35.9 C L 68 18 100 05/02/23 23:45 126/80 05/02/23 23:30 36.0 C L 66 18 100 05/02/23 23:30 119/83 05/02/23 23:15 36.0 C L 67 18 100 05/02/23 23:15 120/83 05/02/23 23:01 36.0 C L 68 18 100 05/02/23 23:01 125/79 05/02/23 23:00 36.0 C L 68 18 91 05/02/23 22:46 36.0 C L 64 18 05/02/23 22:46 145/79 H 05/02/23 22:45 36.0 C L 66 18 100 05/02/23 22:30 35.9 C L 64 18 91 05/02/23 22:30 141/87 H 05/02/23 22:15 35.9 C L 65 19 100 05/02/23 22:15 141/90 H 05/03/23 00:00 100 05/03/23 00:00 60 108/66 05/03/23 00:00 65 05/03/23 00:14 05/02/23 23:22 18 05/02/23 22:01 35.9 C L 69 18 05/02/23 22:01 126/96 05/02/23 22:00 35.9 C L 64 19 88 L 05/02/23 21:45 141/96 H 05/02/23 21:45 35.9 C L 72 18 93 05/02/23 21:31 126/80 05/02/23 21:31 35.9 C L 64 18 05/02/23 21:30 35.9 C L 69 18 05/02/23 21:15 91/61 L 05/02/23 21:15 35.9 C L 75 19 95 05/02/23 22:18 Mechanical Vent O2 Del Method FiO2 05/03/23 07:13 45 05/03/23 07:01 05/03/23 07:01 05/03/23 07:00 05/03/23 06:46 05/03/23 06:46 05/03/23 06:45 05/03/23 06:30 05/03/23 06:30 05/03/23 06:15 05/03/23 06:15 05/03/23 06:00 05/03/23 06:00 05/03/23 05:45 05/03/23 05:45 05/03/23 05:30 05/03/23 05:30 05/03/23 05:15 05/03/23 05:15 05/03/23 05:00 05/03/23 05:00 05/03/23 04:45 05/03/23 04:45 05/03/23 04:30 05/03/23 04:30 05/03/23 04:15 05/03/23 04:15 05/03/23 04:00 05/03/23 04:00 05/03/23 03:45 05/03/23 03:45 05/03/23 04:00 50 05/03/23 04:00 05/03/23 03:30 05/03/23 03:30 05/03/23 03:15 05/03/23 03:15 05/03/23 03:00 05/03/23 03:00 05/03/23 02:45 05/03/23 02:45 05/03/23 02:30 05/03/23 02:30 05/03/23 02:15 05/03/23 02:15 05/03/23 02:00 05/03/23 02:00 05/03/23 01:45 05/03/23 01:45 05/03/23 01:30 05/03/23 01:30 05/03/23 01:15 05/03/23 02:25 50 05/03/23 01:15 05/03/23 01:00 05/03/23 01:00 05/03/23 00:45 05/03/23 00:45 05/03/23 00:30 05/03/23 00:30 05/03/23 00:15 05/03/23 00:15 05/03/23 00:00 05/03/23 00:00 05/02/23 23:45 05/02/23 23:45 05/02/23 23:30 05/02/23 23:30 05/02/23 23:15 05/02/23 23:15 05/02/23 23:01 05/02/23 23:01 05/02/23 23:00 05/02/23 22:46 05/02/23 22:46 05/02/23 22:45 05/02/23 22:30 05/02/23 22:30 05/02/23 22:15 05/02/23 22:15 05/03/23 00:00 Mechanical Vent 05/03/23 00:00 05/03/23 00:00 05/03/23 00:14 60 05/02/23 23:22 60 05/02/23 22:01 05/02/23 22:01 05/02/23 22:00 05/02/23 21:45 05/02/23 21:45 05/02/23 21:31 05/02/23 21:31 05/02/23 21:30 05/02/23 21:15 05/02/23 21:15 05/02/23 22:18 70 Critical Care Results & Data Vital Signs (Past 12 Hours) Vital Signs Temp Pulse Resp BP Pulse Ox Pulse Ox O2 Del Method 05/03/23 07:13 75 18 99 05/03/23 07:01 36.1 C L 75 18 05/03/23 07:01 118/89 05/03/23 07:00 36.1 C L 75 18 100 05/03/23 06:46 36.1 C L 75 18 100 05/03/23 06:46 96/81 L 05/03/23 06:45 36.1 C L 75 18 05/03/23 06:30 36.0 C L 75 18 100 05/03/23 06:30 126/89 05/03/23 06:15 36.0 C L 75 18 05/03/23 06:15 117/85 05/03/23 06:00 36.0 C L 75 18 05/03/23 06:00 129/89 05/03/23 05:45 36.0 C L 75 18 05/03/23 05:45 121/87 05/03/23 05:30 36.0 C L 70 18 05/03/23 05:30 121/87 05/03/23 05:15 36.0 C L 68 18 100 05/03/23 05:15 115/80 05/03/23 05:00 36.0 C L 68 18 05/03/23 05:00 118/80 05/03/23 04:45 36.0 C L 71 18 98 05/03/23 04:45 124/83 05/03/23 04:30 36.0 C L 68 18 100 05/03/23 04:30 106/71 05/03/23 04:15 36.0 C L 66 18 05/03/23 04:15 112/78 05/03/23 04:00 36.0 C L 72 18 100 05/03/23 04:00 114/81 05/03/23 03:45 36.0 C L 69 18 05/03/23 03:45 109/78 05/03/23 04:00 05/03/23 04:00 75 112/70 05/03/23 03:30 36.0 C L 69 18 05/03/23 03:30 106/70 05/03/23 03:15 36.0 C L 72 18 100 05/03/23 03:15 118/83 05/03/23 03:00 36.0 C L 73 18 100 05/03/23 03:00 118/86 05/03/23 02:45 36.0 C L 76 18 99 05/03/23 02:45 113/81 05/03/23 02:30 36.0 C L 73 18 97 05/03/23 02:30 125/74 05/03/23 02:15 36.0 C L 75 18 100 05/03/23 02:15 104/77 05/03/23 02:00 35.9 C L 57 L 18 100 05/03/23 02:00 110/84 05/03/23 01:45 35.9 C L 68 18 100 05/03/23 01:45 124/82 05/03/23 01:30 35.9 C L 61 18 99 05/03/23 01:30 118/74 05/03/23 01:15 113/74 05/03/23 02:25 18 05/03/23 01:15 35.9 C L 59 L 18 100 05/03/23 01:00 35.9 C L 57 L 18 100 05/03/23 01:00 111/74 05/03/23 00:45 35.9 C L 62 18 100 05/03/23 00:45 110/73 05/03/23 00:30 35.9 C L 69 18 100 05/03/23 00:30 133/79 05/03/23 00:15 35.9 C L 59 L 18 100 05/03/23 00:15 116/75 05/03/23 00:00 35.9 C L 59 L 18 100 05/03/23 00:00 113/72 05/02/23 23:45 35.9 C L 68 18 100 05/02/23 23:45 126/80 05/02/23 23:30 36.0 C L 66 18 100 05/02/23 23:30 119/83 05/02/23 23:15 36.0 C L 67 18 100 05/02/23 23:15 120/83 05/02/23 23:01 36.0 C L 68 18 100 05/02/23 23:01 125/79 05/02/23 23:00 36.0 C L 68 18 91 05/02/23 22:46 36.0 C L 64 18 05/02/23 22:46 145/79 H 05/02/23 22:45 36.0 C L 66 18 100 05/02/23 22:30 35.9 C L 64 18 91 05/02/23 22:30 141/87 H 05/02/23 22:15 35.9 C L 65 19 100 05/02/23 22:15 141/90 H 05/03/23 00:00 100 05/03/23 00:00 60 108/66 05/03/23 00:00 65 05/03/23 00:14 05/02/23 23:22 18 05/02/23 22:01 35.9 C L 69 18 05/02/23 22:01 126/96 05/02/23 22:00 35.9 C L 64 19 88 L 05/02/23 21:45 141/96 H 05/02/23 21:45 35.9 C L 72 18 93 05/02/23 21:31 126/80 05/02/23 21:31 35.9 C L 64 18 05/02/23 21:30 35.9 C L 69 18 05/02/23 21:15 91/61 L 05/02/23 21:15 35.9 C L 75 19 95 05/02/23 22:18 Mechanical Vent O2 Del Method FiO2 05/03/23 07:13 45 05/03/23 07:01 05/03/23 07:01 05/03/23 07:00 05/03/23 06:46 05/03/23 06:46 05/03/23 06:45 05/03/23 06:30 05/03/23 06:30 05/03/23 06:15 05/03/23 06:15 05/03/23 06:00 05/03/23 06:00 05/03/23 05:45 05/03/23 05:45 05/03/23 05:30 05/03/23 05:30 05/03/23 05:15 05/03/23 05:15 05/03/23 05:00 05/03/23 05:00 05/03/23 04:45 05/03/23 04:45 05/03/23 04:30 05/03/23 04:30 05/03/23 04:15 05/03/23 04:15 05/03/23 04:00 05/03/23 04:00 05/03/23 03:45 05/03/23 03:45 05/03/23 04:00 50 05/03/23 04:00 05/03/23 03:30 05/03/23 03:30 05/03/23 03:15 05/03/23 03:15 05/03/23 03:00 05/03/23 03:00 05/03/23 02:45 05/03/23 02:45 05/03/23 02:30 05/03/23 02:30 05/03/23 02:15 05/03/23 02:15 05/03/23 02:00 05/03/23 02:00 05/03/23 01:45 05/03/23 01:45 05/03/23 01:30 05/03/23 01:30 05/03/23 01:15 05/03/23 02:25 50 05/03/23 01:15 05/03/23 01:00 05/03/23 01:00 05/03/23 00:45 05/03/23 00:45 05/03/23 00:30 05/03/23 00:30 05/03/23 00:15 05/03/23 00:15 05/03/23 00:00 05/03/23 00:00 05/02/23 23:45 05/02/23 23:45 05/02/23 23:30 05/02/23 23:30 05/02/23 23:15 05/02/23 23:15 05/02/23 23:01 05/02/23 23:01 05/02/23 23:00 05/02/23 22:46 05/02/23 22:46 05/02/23 22:45 05/02/23 22:30 05/02/23 22:30 05/02/23 22:15 05/02/23 22:15 05/03/23 00:00 Mechanical Vent 05/03/23 00:00 05/03/23 00:00 05/03/23 00:14 60 05/02/23 23:22 60 05/02/23 22:01 05/02/23 22:01 05/02/23 22:00 05/02/23 21:45 05/02/23 21:45 05/02/23 21:31 05/02/23 21:31 05/02/23 21:30 05/02/23 21:15 05/02/23 21:15 05/02/23 22:18 70 Lab & Micro Results (Past 24 Hours) RBC 4.03 M/uL (4.20-5.40) L 05/03/23 WBC 5.96 K/ul (4.8-10.8) 05/03/23 Hgb 11.5 g/dl (12.0-16.0) L 05/03/23 Hct 36.8 % (37.0-47.0) L 05/03/23 MCV 91.3 fL (80.0-100.0) 05/03/23 MCH 28.5 pg (25.0-34.0) 05/03/23 MCHC 31.3 g/dL (32.0-36.0) L 05/03/23 RDW Standard Deviation 62.5 fL (36.4-46.3) H 05/03/23 RDW Coefficient of Variation 19.3 % (11.5-14.5) H 05/03/23 Plt Count 160 K/uL (130-400) 05/03/23 MPV 11.2 fL (9.4-12.4) 05/03/23 Nucleated Red Blood Cells % (auto) 0.3 % 05/03 Nucleated RBC Absolute Count (auto) 0.02 K/uL (0.00-0.12) 1 Neutrophils (%) (Auto) 69.3 % 05/03/23 Lymphocytes (%) (Auto) 16.8 % 05/03/23 Monocytes # (Auto) 0.61 K/uL (0.11-0.59) H 05/03/23 Eosinophils # (Auto) 0.12 K/uL (0.00-0.50) 05/03/23 Immature Granulocyte % (Auto) 0.5 % 05/03/23 Neutrophils # (Auto) 4.13 K/uL (1.40-6.50) 05/03/23 Lymphocytes # (Auto) 1.00 K/uL (1.20-3.40) L 05/03/23 Monocytes # (Auto) 0.61 K/uL (0.11-0.59) H 05/03/23 Eosinophils # (Auto) 0.12 K/uL (0.00-0.50) 05/03/23 Basophils # (Auto) 0.07 K/uL (0.00-0.20) 05/03/23 Immature Granulocyte # (Auto) 0.03 K/uL (0.01-0.20) 3 Na 138 mmol/L (136-145) 05/03/23 K 3.5 mmol/L (3.5-5.1) 05/03/23 Cl 101 mmol/L (98-107) 05/03/23 CO2 31 mmol/L (21-32) 05/03/23 Anion Gap 6 (3-11) 05/03/23 BUN 17 mg/dl (6-23) 05/03/23 Creatinine 1.12 mg/dl (0.6-1.2) 05/03/23 Estimated GFR ( Amer) 60.5 ml/min 05/03/23 Estimated GFR (Non-Af Amer) 52.2 ml/min 05/03/23 BUN/Creatinine Ratio 15.2 (10-20) 05/03/23 Glu 142 mg/dl (70-99(Fasting)) H 05/03/23 Ca 8.5 mg/dl (8.6-10.3) L 05/03/23 Phosphorus Level 3.9 mg/dl (2.5-4.9) 05/03/23 Total Bilirubin 1.6 mg/dl (0.2-1.0) H 05/03/23 Direct Bilirubin 0.6 mg/dl (0-0.2) H 05/03/23 AST 28 U/L (13-39) 05/03/23 ALT 9 U/L (7-52) 05/03/23 Alkaline Phosphatase 112 U/L (34-104) H 05/03/23 TP 6.8 gm/dl (6.0-8.3) 05/03/23 Albumin 3.5 gm/dl (3.4-5.0) 05/03/23 Mg 1.8 mg/dl (1.7-2.4) 05/03/23 03:43 Calcium Level 8.5 mg/dl (8.6-10.3) L 05/03/23 03:43 Ionized Calcium 1.05 mmol/L (1.12-1.32) L 05/03/23 03:43 Prothromb Time International Ratio 1.5 (0.9-1.1) H 05/03/23 03 :43 Rush Test NA 05/03/23 06:10 Microbiology 05/02/23 02:38 Aerobic Blood Culture - Preliminary Blood No growth in Aerobic bottle after 24 hours. Anaerobic Blood Culture - Preliminary No growth in Anaerobic bottle after 24 hours. 05/02/23 01:40 Aerobic Blood Culture - Preliminary Blood Gram positive cocci clusters Anaerobic Blood Culture - Preliminary Gram positive cocci clusters 05/02/23 01:40 Gram Stain - Final Back Diagnostic Findings (Past 24 Hours) Chest X-Ray 05/02/23 09:11 XR chest 1V portable HISTORY: Shortness of breath. COMPARISON: Chest 05/02/2023. FINDINGS: The study is limited from a technical standpoint due to the patient's body habitus. Endotracheal tube appears to terminate approximately 1.6 cm from the emilee. The nasogastric tube terminates below the diaphragm. The heart is enlarged. No pneumothorax. No pleural effusions. There are patchy bibasilar airspace opacities. Degenerative changes noted within the shoulders. There is mild pulmonary vascular congestion. IMPRESSION: 1. The endotracheal tube appears to terminate approximately 1.6 cm and the emilee. 2. Nasogastric tube terminates below the diaphragm. 3. Cardiomegaly and mild pulmonary vascular congestion. 4. Patchy bibasilar densities. ACT 112: Negative or not required by law. Electronically signed by: Ramiro Rodrigues M.D. 05/02/2023 10:20 AM Chest X-Ray 05/02/23 11:27 XR chest 1V portable HISTORY: 62 years-old Female lines acute respiratory failure COMPARISON: Chest radiograph of same day at 9:30 AM TECHNIQUE: Semierect AP view of the chest FINDINGS: Cardiac silhouette is enlarged. Endotracheal tube overlies the midline, 3.5 cm superior to the emilee. Right IJ central venous catheter is noted with distal tip in expected location of the inferior SVC. Enteric tube courses below the diaphragm with distal tip outside the [id number]. No pneumothorax. Pulmonary vascular congestion with interstitial coarsening again noted. Probable trace pleural effusions. Persistent bibasilar densities. IMPRESSION: 1. Lines and tubes as above. 2. No pneumothorax. 3. Cardiomegaly with persistent pulmonary vascular congestion, stable to slightly improved. ACT 112: Negative or not required by law. The above report was generated using voice recognition software. It may contain grammatical, syntax or spelling errors. Electronically signed by: Juan Manuel Rodriguez M.D. 05/02/2023 12:35 PM Venous Doppler Study 05/02/23 13:50 Exam(s): US VENOUS BILATERAL LOWER EXTREMITIES EXAM: US Duplex Bilateral Lower Extremities Veins CLINICAL HISTORY: Reason for exam: r/o dvt. TECHNIQUE: Real-time duplex ultrasound scan of the bilateral lower extremity veins integrating B-mode two-dimensional vascular structure, Doppler spectral analysis, color flow Doppler imaging and compression. COMPARISON: No relevant prior studies available. FINDINGS: Limitations: Evaluation is limited by patient body habitus. Right deep veins: No DVT in the right common femoral or proximal left superficial femoral vein. Mid to distal left superficial femoral and popliteal veins are not well delineated. The calf veins are predominantly obscured.. Right superficial veins: Unremarkable. No thrombus in the saphenofemoral junction. Left deep veins: No DVT in the left common femoral vein or proximal left superficial femoral vein. The mid to distal left superficial femoral and popliteal veins are not well delineated. The calf veins are predominantly obscured. Left superficial veins: Unremarkable. No thrombus in the saphenofemoral junction. Soft tissues: Subcutaneous edema noted throughout the left lower extremity. No popliteal cyst. IMPRESSION: 1. Near nondiagnostic examination secondary to patient body habitus and edema. The bilateral common femoral and proximal superficial femoral veins are patent. Mid to distal superficial femoral veins and popliteal veins are not definitively delineated. 2. Subcutaneous edema noted involving both lower extremities. Electronically signed by: Christoph Adhikari MD 05/03/23 01:25 AM Chest X-Ray 05/03/23 06:00 XR chest 1V portable HISTORY: 62 years-old Female intubation acute respiratory failure COMPARISON: 05/02/2023 TECHNIQUE: AP view of the chest FINDINGS: Cardiac silhouette is enlarged. Endotracheal tube overlies the midline, 2.8 cm superior to the emilee. Right IJ central venous catheter is in unchanged positioning. No pneumothorax. Patient is rotated to the left. Pulmonary vascular congestion with probable small pleural effusions. Bones appear grossly intact. The enteric tube appears to have been removed. IMPRESSION: 1. Line and tube placement as above. 2. No pneumothorax. 3. Cardiomegaly with pulmonary vascular congestion. 4. Probable small pleural effusions. ACT 112: Negative or not required by law. The above report was generated using voice recognition software. It may contain grammatical, syntax or spelling errors. Electronically signed by: Juan Manuel Rodriguez M.D. 05/03/2023 7:33 AM I & O Totals 24 Hours 05/02/23 05/03/23 05/04/23 06:59 06:59 06:59 Intake Total 100 / 100 1360.484 / 1360.484 787.010 / 787.010 Output Total 3325 / 3325 Balance 100 / 100 -1964.516 / -1964.516 787.010 / 787.010 Cumulative 05/02/23 01:14 thru 05/03/23 08:42 Intake Total 2247.494 Output Total 3325 Balance -1077.506 RT Ventilator Mngmt (Last Documented) Ventilator Ordered Settings Ventilator Support Mode Assist Control 05/03/23 07:13 Respiratory Rate 18 05/03/23 07:13 Ventilator Tidal Volume 330 05/03/23 07:13 Setting Minute Ventilation 5.9 05/03/23 07:13 Positive End Expiratory 16 05/03/23 07:13 Pressure Fraction of Inspired Oxygen 45 05/03/23 07:13 Ventilator - PT Measurements Respiratory Rate 18 Exhaled Tidal Volume 331 Minute Ventilation 5.9 Peak Inspiratory Airway 42 Pressure Plateau Pressure 38 Respiratory Cycle Inspiratory: 1:2.6 Expiratory Ratio Inspiratory Phase Time 1 End-Tidal CO2 48 Static Lung Compliance 15.05 Dynamic Lung Compliance 12.73 Normal Static Lung Compliance 43.00 Patient Measurements Comment decreased fi02 to 50% Coding Level of Care Code 06031 CRITICAL CARE 1ST 30-74M Diagnoses Acute cor pulmonale I26.09 Respiratory failure with hypercapnia J96.92 Hypertension I10 Diabetes E11.9 Morbid obesity with BMI of 70 and over, adult E66.01; Z68.45 COVID-19 U07.1 Adenoviral bronchitis J40; B97.0 Viral pneumonia J12.9
[2023-05-03] MEDS ORDERED: POTASSIUM CHLORIDE CRTAB 20 MEQ TABCR PO SCH (09:30)
[2023-05-03] MEDS: NOREPINEPHRINE/D5W 4 MG/250 ML PLCT IV SCH ×2 (10:44→22:35)
[2023-05-03] MEDS ORDERED: POTASSIUM CHLORIDE 20 MEQ/15 ML UDC PO SCH (11:00)
[2023-05-03] MEDS: PANTOprazole 40 MG in SYRINGE 0 ML IV SCH (11:26)
[2023-05-03] MEDS: fentaNYL citrate 2,500 MCG/250 ML BAG IV SCH (11:26)
[2023-05-03] MEDS: ASPIRIN 81 MG CHEW PO SCH (11:26)
[2023-05-03] MEDS: MULTI VIT W/MINERALS LIQUID 15 ML UDP PO SCH (11:26)
--- NOTE | 2023-05-03 11:43 | Cardiology Progress Note ---
Date of Service May 03, 2023 Assessment & Plan (1) Acute on chronic respiratory failure with hypoxia and hypercapnia: (2) CHELI (obstructive sleep apnea): (3) Acute cor pulmonale: (4) Morbid obesity with BMI of 70 and over, adult: (5) Atrial flutter: (6) COVID-19: Plan 62-year-old female with morbid obesity BMI greater than 70 weight greater than 500 pounds presents with evidence of acute cor pulmonale likely acute on chronic hypercapnic respiratory failure possibly precipitated by viral infection. Rhythm reveals probable coarse A-fib flutter Currently being managed in the intensive care unit on mechanical ventilation, low-dose pressors. Patient is responding to diuretics Anticoagulation initiated with heparin appropriately X-rays and exam consistent with right heart failure secondary to above. LV systolic function low normal Agree with current plans with continued respiratory support cautious diuresis following renal function Avoid AV brittani blocking drugs given resting bradycardia 05/03/2023 Hemodynamically stable and mechanically ventilated Continue IV diuretics, IV heparin Supplement potassium to greater than 4 Admission and Anticipated Discharge Date Admission Date: May 02, 2023 Subjective All records and patient care reviewed with nursing providers Patient intubated and sedated Hemodynamically stable now off pressors this morning Continues diuresis with stable renal function Results & Data Vital Signs (Past 12 Hours) Vital Signs Temp Pulse Resp BP Pulse Ox Pulse Ox O2 Del Method 05/03/23 11:22 75 18 100 05/03/23 10:30 36.3 C L 76 18 98 05/03/23 10:16 36.3 C L 79 14 73 L 05/03/23 10:16 108/82 05/03/23 10:15 36.3 C L 75 18 99 05/03/23 10:00 36.2 C L 75 18 100 05/03/23 10:00 114/82 05/03/23 09:45 36.2 C L 75 18 05/03/23 09:45 110/79 05/03/23 09:30 36.2 C L 75 18 100 05/03/23 09:30 111/75 05/03/23 09:15 36.1 C L 75 18 100 05/03/23 09:15 98/74 L 05/03/23 09:01 118/68 05/03/23 09:01 36.6 C 75 18 100 05/03/23 09:00 36.1 C L 75 18 05/03/23 08:45 36.1 C L 75 18 100 05/03/23 08:45 116/75 05/03/23 08:30 36.1 C L 75 18 100 05/03/23 08:30 117/79 05/03/23 08:15 36.1 C L 75 18 100 05/03/23 08:15 108/79 05/03/23 08:00 36.1 C L 75 18 05/03/23 08:00 112/83 05/03/23 07:45 36.1 C L 75 18 05/03/23 07:45 124/79 05/03/23 07:30 36.1 C L 75 18 100 05/03/23 07:30 118/77 05/03/23 07:15 36.1 C L 75 18 100 05/03/23 07:15 122/85 05/03/23 08:00 05/03/23 08:00 100 05/03/23 08:00 75 05/03/23 08:00 75 05/03/23 08:00 Mechanical Vent 05/03/23 07:13 75 18 99 05/03/23 07:01 36.1 C L 75 18 05/03/23 07:01 118/89 05/03/23 07:00 36.1 C L 75 18 100 05/03/23 06:46 36.1 C L 75 18 100 05/03/23 06:46 96/81 L 05/03/23 06:45 36.1 C L 75 18 05/03/23 06:30 36.0 C L 75 18 100 05/03/23 06:30 126/89 05/03/23 06:15 36.0 C L 75 18 05/03/23 06:15 117/85 05/03/23 06:00 36.0 C L 75 18 05/03/23 06:00 129/89 05/03/23 05:45 36.0 C L 75 18 05/03/23 05:45 121/87 05/03/23 05:30 36.0 C L 70 18 05/03/23 05:30 121/87 05/03/23 05:15 36.0 C L 68 18 100 05/03/23 05:15 115/80 05/03/23 05:00 36.0 C L 68 18 05/03/23 05:00 118/80 05/03/23 04:45 36.0 C L 71 18 98 05/03/23 04:45 124/83 05/03/23 04:30 36.0 C L 68 18 100 05/03/23 04:30 106/71 05/03/23 04:15 36.0 C L 66 18 05/03/23 04:15 112/78 05/03/23 04:00 36.0 C L 72 18 100 05/03/23 04:00 114/81 05/03/23 03:45 36.0 C L 69 18 05/03/23 03:45 109/78 05/03/23 04:00 05/03/23 04:00 75 112/70 05/03/23 03:30 36.0 C L 69 18 05/03/23 03:30 106/70 05/03/23 03:15 36.0 C L 72 18 100 05/03/23 03:15 118/83 05/03/23 03:00 36.0 C L 73 18 100 05/03/23 03:00 118/86 05/03/23 02:45 36.0 C L 76 18 99 05/03/23 02:45 113/81 05/03/23 02:30 36.0 C L 73 18 97 05/03/23 02:30 125/74 05/03/23 02:15 36.0 C L 75 18 100 05/03/23 02:15 104/77 05/03/23 02:00 35.9 C L 57 L 18 100 05/03/23 02:00 110/84 05/03/23 01:45 35.9 C L 68 18 100 05/03/23 01:45 124/82 05/03/23 01:30 35.9 C L 61 18 99 05/03/23 01:30 118/74 05/03/23 01:15 113/74 05/03/23 02:25 18 05/03/23 01:15 35.9 C L 59 L 18 100 05/03/23 01:00 35.9 C L 57 L 18 100 05/03/23 01:00 111/74 05/03/23 00:45 35.9 C L 62 18 100 05/03/23 00:45 110/73 05/03/23 00:30 35.9 C L 69 18 100 05/03/23 00:30 133/79 05/03/23 00:15 35.9 C L 59 L 18 100 05/03/23 00:15 116/75 05/03/23 00:00 35.9 C L 59 L 18 100 05/03/23 00:00 113/72 05/02/23 23:45 35.9 C L 68 18 100 05/02/23 23:45 126/80 05/03/23 00:00 100 05/03/23 00:00 60 108/66 05/03/23 00:00 65 05/03/23 00:14 O2 Del Method FiO2 05/03/23 11:22 45 05/03/23 10:30 05/03/23 10:16 05/03/23 10:16 05/03/23 10:15 05/03/23 10:00 05/03/23 10:00 05/03/23 09:45 05/03/23 09:45 05/03/23 09:30 05/03/23 09:30 05/03/23 09:15 05/03/23 09:15 05/03/23 09:01 05/03/23 09:01 05/03/23 09:00 05/03/23 08:45 05/03/23 08:45 05/03/23 08:30 05/03/23 08:30 05/03/23 08:15 05/03/23 08:15 05/03/23 08:00 05/03/23 08:00 05/03/23 07:45 05/03/23 07:45 05/03/23 07:30 05/03/23 07:30 05/03/23 07:15 05/03/23 07:15 05/03/23 08:00 45 05/03/23 08:00 Mechanical Vent 05/03/23 08:00 05/03/23 08:00 05/03/23 08:00 05/03/23 07:13 45 05/03/23 07:01 05/03/23 07:01 05/03/23 07:00 05/03/23 06:46 05/03/23 06:46 05/03/23 06:45 05/03/23 06:30 05/03/23 06:30 05/03/23 06:15 05/03/23 06:15 05/03/23 06:00 05/03/23 06:00 05/03/23 05:45 05/03/23 05:45 05/03/23 05:30 05/03/23 05:30 05/03/23 05:15 05/03/23 05:15 05/03/23 05:00 05/03/23 05:00 05/03/23 04:45 05/03/23 04:45 05/03/23 04:30 05/03/23 04:30 05/03/23 04:15 05/03/23 04:15 05/03/23 04:00 05/03/23 04:00 05/03/23 03:45 05/03/23 03:45 05/03/23 04:00 50 05/03/23 04:00 05/03/23 03:30 05/03/23 03:30 05/03/23 03:15 05/03/23 03:15 05/03/23 03:00 05/03/23 03:00 05/03/23 02:45 05/03/23 02:45 05/03/23 02:30 05/03/23 02:30 05/03/23 02:15 05/03/23 02:15 05/03/23 02:00 05/03/23 02:00 05/03/23 01:45 05/03/23 01:45 05/03/23 01:30 05/03/23 01:30 05/03/23 01:15 05/03/23 02:25 50 05/03/23 01:15 05/03/23 01:00 05/03/23 01:00 05/03/23 00:45 05/03/23 00:45 05/03/23 00:30 05/03/23 00:30 05/03/23 00:15 05/03/23 00:15 05/03/23 00:00 05/03/23 00:00 05/02/23 23:45 05/02/23 23:45 05/03/23 00:00 Mechanical Vent 05/03/23 00:00 05/03/23 00:00 05/03/23 00:14 60 Laboratory Results Laboratory Results - last 24 hr 05/02/23 05/02/23 05/02/23 01:40 10:15 12:36 WBC RBC Hgb POC Hgb 13.3 Hct POC Hct 39 MCV MCH MCHC RDW Std Deviation RDW Coeff of Brittany Plt Count MPV Immature Gran % (Auto) Neut % (Auto) Lymph % (Auto) Garrett % (Auto) Eos % (Auto) Baso % (Auto) Neut # (Auto) Lymph # (Auto) Garrett # (Auto) Eos # (Auto) Baso # (Auto) Immature Gran # (Auto) Absolute Nucleated RBC Nucleated RBC % (auto) PT INR APTT PTT Ratio Sample Site Art Line POC pH 7.33 L POC pCO2 64 H POC pO2 > 420 H POC HCO3 34 H POC Total CO2 36 H POC Base Excess 8.0 H ABG pH (Temp Correct) 7.339 L ABG pCO2 (Temp Corrct 63 H POC ABG pO2 at Pt Temp 453 POC ABG O2 Sat 100.0 H Rush Test NA O2 Delivery Device Ventilator POC O2 Rate 18 Minute Ventilation 6 POC FiO2 100 Tidal Volume 330 PEEP 25 POC Sodium 140 Sodium POC Potassium 3.8 Potassium Chloride Carbon Dioxide Anion Gap BUN Creatinine Est Cr Clr Drug Dosing Est GFR ( Amer) Est GFR (Non-Af Amer) BUN/Creatinine Ratio Glucose POC Glucose POC Glucose (other) Calcium Ionized Calcium Phosphorus Magnesium Total Bilirubin Direct Bilirubin AST ALT Alkaline Phosphatase Total Protein Albumin Triglycerides Cholesterol LDL Cholesterol, Calc VLDL Cholesterol, Calc HDL Cholesterol Cholesterol/HDL Ratio Lipase Nasal Screen MRSA (PCR) Negative Staphylococcus sp PCR DETECTED A mecA/C-Methicil Resis Gene DETECTED A Staph epidermidis (PCR) DETECTED A Bld Cult ID Panel PCR See PCR Comment Blood Type Antibody Screen 05/02/23 05/02/23 05/02/23 14:18 16:25 17:49 WBC RBC Hgb POC Hgb Hct POC Hct MCV MCH MCHC RDW Std Deviation RDW Coeff of Brittany Plt Count MPV Immature Gran % (Auto) Neut % (Auto) Lymph % (Auto) Garrett % (Auto) Eos % (Auto) Baso % (Auto) Neut # (Auto) Lymph # (Auto) Garrett # (Auto) Eos # (Auto) Baso # (Auto) Immature Gran # (Auto) Absolute Nucleated RBC Nucleated RBC % (auto) PT INR APTT PTT Ratio Sample Site POC pH POC pCO2 POC pO2 POC HCO3 POC Total CO2 POC Base Excess ABG pH (Temp Correct) ABG pCO2 (Temp Corrct POC ABG pO2 at Pt Temp POC ABG O2 Sat Rush Test O2 Delivery Device POC O2 Rate Minute Ventilation POC FiO2 Tidal Volume PEEP POC Sodium Sodium POC Potassium Potassium Chloride Carbon Dioxide Anion Gap BUN Creatinine Est Cr Clr Drug Dosing Est GFR ( Amer) Est GFR (Non-Af Amer) BUN/Creatinine Ratio Glucose POC Glucose POC Glucose (other) 147 H 150 H Calcium Ionized Calcium Phosphorus Magnesium Total Bilirubin Direct Bilirubin AST ALT Alkaline Phosphatase Total Protein Albumin Triglycerides Cholesterol LDL Cholesterol, Calc VLDL Cholesterol, Calc HDL Cholesterol Cholesterol/HDL Ratio Lipase Nasal Screen MRSA (PCR) Staphylococcus sp PCR mecA/C-Methicil Resis Gene Staph epidermidis (PCR) Bld Cult ID Panel PCR Blood Type O Positive Antibody Screen NEGATIVE 05/02/23 05/02/23 05/02/23 17:49 20:37 21:14 WBC RBC Hgb POC Hgb 13.9 Hct POC Hct 41 MCV MCH MCHC RDW Std Deviation RDW Coeff of Brittany Plt Count MPV Immature Gran % (Auto) Neut % (Auto) Lymph % (Auto) Garrett % (Auto) Eos % (Auto) Baso % (Auto) Neut # (Auto) Lymph # (Auto) Garrett # (Auto) Eos # (Auto) Baso # (Auto) Immature Gran # (Auto) Absolute Nucleated RBC Nucleated RBC % (auto) PT INR APTT PTT Ratio Sample Site Art Line POC pH 7.36 POC pCO2 56 H POC pO2 69 L POC HCO3 32 H POC Total CO2 34 H POC Base Excess 6.0 H ABG pH (Temp Correct) 7.381 ABG pCO2 (Temp Corrct 53 H POC ABG pO2 at Pt Temp 63 POC ABG O2 Sat 92.0 Rush Test NA O2 Delivery Device Ventilator POC O2 Rate 18 Minute Ventilation POC FiO2 50 Tidal Volume 330 PEEP 20 POC Sodium 139 Sodium 139 POC Potassium 3.6 Potassium 3.9 Chloride 101 Carbon Dioxide 28 Anion Gap 10 BUN 17 Creatinine 1.10 Est Cr Clr Drug Dosing 105.1 Est GFR ( Amer) 61.9 Est GFR (Non-Af Amer) 53.4 BUN/Creatinine Ratio 15.5 Glucose 148 H POC Glucose 107 H POC Glucose (other) Calcium 8.6 Ionized Calcium Phosphorus 4.5 Magnesium 1.6 L Total Bilirubin Direct Bilirubin AST ALT Alkaline Phosphatase Total Protein Albumin Triglycerides Cholesterol LDL Cholesterol, Calc VLDL Cholesterol, Calc HDL Cholesterol Cholesterol/HDL Ratio Lipase Nasal Screen MRSA (PCR) Staphylococcus sp PCR mecA/C-Methicil Resis Gene Staph epidermidis (PCR) Bld Cult ID Panel PCR Blood Type Antibody Screen 05/02/23 05/02/23 05/02/23 23:07 23:09 23:57 WBC RBC Hgb POC Hgb 13.6 Hct POC Hct 40 MCV MCH MCHC RDW Std Deviation RDW Coeff of Brittany Plt Count MPV Immature Gran % (Auto) Neut % (Auto) Lymph % (Auto) Garrett % (Auto) Eos % (Auto) Baso % (Auto) Neut # (Auto) Lymph # (Auto) Garrett # (Auto) Eos # (Auto) Baso # (Auto) Immature Gran # (Auto) Absolute Nucleated RBC Nucleated RBC % (auto) PT INR APTT > 139.0 H* PTT Ratio > 4.9 Sample Site Art Line POC pH 7.36 POC pCO2 60 H POC pO2 289 H POC HCO3 34 H POC Total CO2 36 H POC Base Excess 8.0 H ABG pH (Temp Correct) 7.375 ABG pCO2 (Temp Corrct 57 H POC ABG pO2 at Pt Temp 284 POC ABG O2 Sat 100.0 H Rush Test NA O2 Delivery Device Ventilator POC O2 Rate 18 Minute Ventilation POC FiO2 100 Tidal Volume 330 PEEP 18 POC Sodium 140 Sodium POC Potassium 3.5 Potassium Chloride Carbon Dioxide Anion Gap BUN Creatinine Est Cr Clr Drug Dosing Est GFR ( Amer) Est GFR (Non-Af Amer) BUN/Creatinine Ratio Glucose POC Glucose 149 H POC Glucose (other) Calcium Ionized Calcium Phosphorus Magnesium Total Bilirubin Direct Bilirubin AST ALT Alkaline Phosphatase Total Protein Albumin Triglycerides Cholesterol LDL Cholesterol, Calc VLDL Cholesterol, Calc HDL Cholesterol Cholesterol/HDL Ratio Lipase Nasal Screen MRSA (PCR) Staphylococcus sp PCR mecA/C-Methicil Resis Gene Staph epidermidis (PCR) Bld Cult ID Panel PCR Blood Type Antibody Screen 05/03/23 05/03/23 05/03/23 02:22 03:43 03:43 WBC RBC Hgb POC Hgb Hct POC Hct MCV MCH MCHC RDW Std Deviation RDW Coeff of Brittany Plt Count MPV Immature Gran % (Auto) Neut % (Auto) Lymph % (Auto) Garrett % (Auto) Eos % (Auto) Baso % (Auto) Neut # (Auto) Lymph # (Auto) Garrett # (Auto) Eos # (Auto) Baso # (Auto) Immature Gran # (Auto) Absolute Nucleated RBC Nucleated RBC % (auto) PT INR APTT > 139.0 H* PTT Ratio > 4.9 Sample Site POC pH POC pCO2 POC pO2 POC HCO3 POC Total CO2 POC Base Excess ABG pH (Temp Correct) ABG pCO2 (Temp Corrct POC ABG pO2 at Pt Temp POC ABG O2 Sat Rush Test O2 Delivery Device POC O2 Rate Minute Ventilation POC FiO2 Tidal Volume PEEP POC Sodium Sodium 138 POC Potassium Potassium 3.5 Chloride 101 Carbon Dioxide 31 Anion Gap 6 BUN 17 Creatinine 1.12 Est Cr Clr Drug Dosing 103.2 Est GFR ( Amer) 60.5 Est GFR (Non-Af Amer) 52.2 BUN/Creatinine Ratio 15.2 Glucose 142 H POC Glucose POC Glucose (other) Calcium 8.5 L Ionized Calcium 1.05 L Phosphorus 3.9 Magnesium 1.8 Total Bilirubin 1.6 H Direct Bilirubin 0.6 H AST 28 ALT 9 Alkaline Phosphatase 112 H Total Protein 6.8 Albumin 3.5 Triglycerides 64 Cholesterol 78 LDL Cholesterol, Calc 38 VLDL Cholesterol, Calc 13 HDL Cholesterol 27 Cholesterol/HDL Ratio 2.9 Lipase 22 Nasal Screen MRSA (PCR) Staphylococcus sp PCR mecA/C-Methicil Resis Gene Staph epidermidis (PCR) Bld Cult ID Panel PCR Blood Type Antibody Screen 05/03/23 05/03/23 05/03/23 03:43 03:43 06:05 WBC 5.96 RBC 4.03 L Hgb 11.5 L POC Hgb Hct 36.8 L POC Hct MCV 91.3 MCH 28.5 MCHC 31.3 L RDW Std Deviation 62.5 H RDW Coeff of Brittany 19.3 H Plt Count 160 MPV 11.2 Immature Gran % (Auto) 0.5 Neut % (Auto) 69.3 Lymph % (Auto) 16.8 Garrett % (Auto) 10.2 Eos % (Auto) 2.0 Baso % (Auto) 1.2 Neut # (Auto) 4.13 Lymph # (Auto) 1.00 L Garrett # (Auto) 0.61 H Eos # (Auto) 0.12 Baso # (Auto) 0.07 Immature Gran # (Auto) 0.03 Absolute Nucleated RBC 0.02 Nucleated RBC % (auto) 0.3 PT 16.1 H INR 1.5 H APTT 63.2 H* PTT Ratio 2.2 Sample Site POC pH POC pCO2 POC pO2 POC HCO3 POC Total CO2 POC Base Excess ABG pH (Temp Correct) ABG pCO2 (Temp Corrct POC ABG pO2 at Pt Temp POC ABG O2 Sat Rush Test O2 Delivery Device POC O2 Rate Minute Ventilation POC FiO2 Tidal Volume PEEP POC Sodium Sodium POC Potassium Potassium Chloride Carbon Dioxide Anion Gap BUN Creatinine Est Cr Clr Drug Dosing Est GFR ( Amer) Est GFR (Non-Af Amer) BUN/Creatinine Ratio Glucose POC Glucose 130 H POC Glucose (other) Calcium Ionized Calcium Phosphorus Magnesium Total Bilirubin Direct Bilirubin AST ALT Alkaline Phosphatase Total Protein Albumin Triglycerides Cholesterol LDL Cholesterol, Calc VLDL Cholesterol, Calc HDL Cholesterol Cholesterol/HDL Ratio Lipase Nasal Screen MRSA (PCR) Staphylococcus sp PCR mecA/C-Methicil Resis Gene Staph epidermidis (PCR) Bld Cult ID Panel PCR Blood Type Antibody Screen 05/03/23 06:10 WBC RBC Hgb POC Hgb 12.9 Hct POC Hct 38 MCV MCH MCHC RDW Std Deviation RDW Coeff of Brittany Plt Count MPV Immature Gran % (Auto) Neut % (Auto) Lymph % (Auto) Garrett % (Auto) Eos % (Auto) Baso % (Auto) Neut # (Auto) Lymph # (Auto) Garrett # (Auto) Eos # (Auto) Baso # (Auto) Immature Gran # (Auto) Absolute Nucleated RBC Nucleated RBC % (auto) PT INR APTT PTT Ratio Sample Site Art Line POC pH 7.41 POC pCO2 53 H POC pO2 87 POC HCO3 33 H POC Total CO2 35 H POC Base Excess 9.0 H ABG pH (Temp Correct) 7.422 ABG pCO2 (Temp Corrct 51 H POC ABG pO2 at Pt Temp 81 POC ABG O2 Sat 96.0 H Rush Test NA O2 Delivery Device Ventilator POC O2 Rate 18 Minute Ventilation POC FiO2 50 Tidal Volume 330 PEEP 18 POC Sodium 139 Sodium POC Potassium 3.4 Potassium Chloride Carbon Dioxide Anion Gap BUN Creatinine Est Cr Clr Drug Dosing Est GFR ( Amer) Est GFR (Non-Af Amer) BUN/Creatinine Ratio Glucose POC Glucose POC Glucose (other) Calcium Ionized Calcium Phosphorus Magnesium Total Bilirubin Direct Bilirubin AST ALT Alkaline Phosphatase Total Protein Albumin Triglycerides Cholesterol LDL Cholesterol, Calc VLDL Cholesterol, Calc HDL Cholesterol Cholesterol/HDL Ratio Lipase Nasal Screen MRSA (PCR) Staphylococcus sp PCR mecA/C-Methicil Resis Gene Staph epidermidis (PCR) Bld Cult ID Panel PCR Blood Type Antibody Screen
[2023-05-03] MEDS ORDERED: acetaZOLAMIDE 500 MG in SYRINGE 0 ML IV SCH (12:00)
[2023-05-03 12:56] LABS: Partial Thromboplastin Ratio 3.1
[2023-05-03 13:05] LABS: Partial Thromboplastin Time 88.8 Seconds (21.0-31.0)
[2023-05-03] MEDS ORDERED: BUMETANIDE 1 MG in SYRINGE 0 ML IV ONE (13:23)
[2023-05-03] MEDS ORDERED: OXYMETAZOLINE 0.05% 30 ML BTL ONE (13:28)
--- NOTE | 2023-05-03 13:50 | XRay Report ---
XR chest 1V portable HISTORY: 62 years-old Female placement of OGT/feeding tube. Status post placement of a feeding tube COMPARISON: 05/03/2023 TECHNIQUE: AP view of the chest FINDINGS: Enteric tube distal tip projects over the expected location of the mid stomach. Limited exam secondar y to positioning. Unchanged positioning of the endotracheal and right IJ central venous catheters. No pneumothorax. Cardiomegaly with pulmonary vascular congestion and probable small pleural effusions. Mild bibasilar densities. Bones appear grossly intact. IMPRESSION: 1. Lines and tubes as above. 2. No pneumothorax. 3. Cardiomegaly with pulmonary vascular congestion. 4. Probable small pleural effusions. ACT 112: Negative or not required by law. The above report was generated using voice recognition software. It may contain grammatical, syntax o r spelling errors. Electronically signed by: Juan Manuel Rodriguez M.D. 05/03/2023 1:48 PM
[2023-05-03] MEDS ORDERED: PEPTAMEN INTENSE VHP 1.0 CAL 1,000 ML BAG OG SCH (14:15)
--- NOTE | 2023-05-03 14:55 | Hospitalist Progress Note ---
Date of Service May 03, 2023 Assessment & Plan (1) Respiratory failure with hypercapnia: Plan: Acute respiratory failure with hypoxia and hypercapnia Acute cor pulmonale COVID-19 Pneumonia, adenovirus H/O Interstitial lung disease, pulmonary hypertension, OHS/CHELI Septic Shock: Due to above Lactic acidosis Valvular heart disease (moderate TR, mild MR from TTE 2017) Abnormal blood cultures--likely contaminant --Biofire: + Adenovirus, CVOID 19 --CXR:The endotracheal tube appears to terminate approximately 1.6 cm and the emilee. Nasogastric tube terminates below the diaphragm. Cardiomegaly and mild pulmonary vascular congestion. Patchy bibasilar densities. --Normal procalcitonin -- Transesophageal ECHO: Left ventricle is normal in size. Mild concentric LVH. No regional wall motion abnormalities noted. Flattened septum is consistent with RV pressure/volume overload. EF 50 to 50%. There is massive right atrial enlargement. Right ventricle is severely dilated. Moderate to severe right ventricular hypertrophy. Right ventricle systolic function is moderately reduced. Tricuspid annulus is dilated leaflets appear freely mobile. Severe tricuspid regurgitation. Right ventricular systolic pressure is severely elevated at > 60 mmHg. --Venous Doppler:Near nondiagnostic examination secondary to patient body habitus and edema. The bilateral common femoral and proximal superficial femoral veins are patent. Mid to distal superficial femoral veins and popliteal veins are not definitively delineated. Subcutaneous edema noted involving both lower extremities. --Blood cultures 08/26: Coagulase-negative staph not lugdunensis -- Wound cultures growing gram-negative bacilli --S/P Intubation 05/02/23 --ECHO Unable to be obtain due to body habitus -- Appreciate critical care help Wean off of pressors as able Consider Remdesivir, dexamethasone--will defer to critical care Consider CT to R/O PE if able. Unsure if CT can be done due to her morbid obesity was started on empiric antibiotics--doxycycline, Rocephin Empirically started on IV heparin given possible thromboembolic disease, possible A.flutter continue IV diuretics Monitor volume status Cardiology following as well Suspected Atrial flutter Empirically on IV heparin Started on metoprolol 12.5 mg twice daily Decubitus wounds Follow-up wound cultures Continue wound care Adjust antibiotics as needed based on cultures OHS Patient unable to comply with BiPAP recommendations by sleep specialist per records Morbid Obesity BMI 89 Hypertension--hold losartan for now Hyperlipidemia--on statin DM II Diet-controlled. HbA1C: 7.0. Monitor BGs. Continue insulin per protocol GERD--Continue PPI Chronic lymphedema Functional disability DVT px Lovenox SQ Code Status Full code May need to readdress goals of care Admission and Anticipated Discharge Date Admission Date: May 02, 2023 Subjective Patient is seen and examined at bedside Unable to obtain any history given patient sedated and intubated Was noted to have epistaxis during my encounter Currently on IV heparin Pressors on hold per analysis evaluator of Systems Review of Systems: Unobtainable due to endotracheal tube Physical Exam Physical Exam: Physical Exam: Vitals signs as noted above General Appearance:Morbidly Obese, +Intubated Head: normocephalic, Atraumatic Eyes: normal inspection, EOMI Neck: supple, Trachea midline Respiratory/Chest: Decreased breath sounds, CTA Cardiovascular: S1, S2, No murmur Abdomen/GI:Soft, Non tender, +Protuberant, Bowel sounds present Extremities/Musculoskeletal:normal inspection, +Lymphedema Neurologic/Psych:Sedated and Intubated Skin: normal color, warm Results & Data Results & Data Vital Signs (Past 12 Hours) Vital Signs Temp Pulse Resp BP Pulse Ox Pulse Ox O2 Del Method 05/03/23 13:30 36.5 C 74 20 93 05/03/23 13:16 36.5 C 80 19 97 05/03/23 13:16 121/76 05/03/23 13:15 36.5 C 81 20 98 05/03/23 13:00 36.5 C 76 18 96 05/03/23 12:45 36.5 C 76 18 97 05/03/23 12:30 36.5 C 76 18 97 05/03/23 12:16 113/77 05/03/23 12:16 36.4 C L 76 18 96 05/03/23 12:15 36.4 C L 76 18 97 05/03/23 12:00 36.4 C L 76 18 95 05/03/23 11:45 36.4 C L 76 18 95 05/03/23 11:30 36.3 C L 75 18 100 05/03/23 11:16 36.3 C L 75 18 100 05/03/23 11:16 113/80 05/03/23 11:15 36.3 C L 75 18 100 05/03/23 11:00 36.3 C L 75 18 100 05/03/23 10:45 36.3 C L 76 18 100 05/03/23 12:00 05/03/23 12:00 75 05/03/23 11:22 75 18 100 05/03/23 10:30 36.3 C L 76 18 98 05/03/23 10:16 36.3 C L 79 14 73 L 05/03/23 10:16 108/82 05/03/23 10:15 36.3 C L 75 18 99 05/03/23 10:00 36.2 C L 75 18 100 05/03/23 10:00 114/82 05/03/23 09:45 36.2 C L 75 18 05/03/23 09:45 110/79 05/03/23 09:30 36.2 C L 75 18 100 05/03/23 09:30 111/75 05/03/23 09:15 36.1 C L 75 18 100 05/03/23 09:15 98/74 L 05/03/23 09:01 118/68 05/03/23 09:01 36.6 C 75 18 100 05/03/23 09:00 36.1 C L 75 18 05/03/23 08:45 36.1 C L 75 18 100 05/03/23 08:45 116/75 05/03/23 08:30 36.1 C L 75 18 100 05/03/23 08:30 117/79 05/03/23 08:15 36.1 C L 75 18 100 05/03/23 08:15 108/79 05/03/23 08:00 36.1 C L 75 18 05/03/23 08:00 112/83 05/03/23 07:45 36.1 C L 75 18 05/03/23 07:45 124/79 05/03/23 07:30 36.1 C L 75 18 100 05/03/23 07:30 118/77 05/03/23 07:15 36.1 C L 75 18 100 05/03/23 07:15 122/85 05/03/23 08:00 05/03/23 08:00 100 05/03/23 08:00 75 05/03/23 08:00 75 05/03/23 08:00 Mechanical Vent 05/03/23 07:13 75 18 99 05/03/23 07:01 36.1 C L 75 18 05/03/23 07:01 118/89 05/03/23 07:00 36.1 C L 75 18 100 05/03/23 06:46 36.1 C L 75 18 100 05/03/23 06:46 96/81 L 05/03/23 06:45 36.1 C L 75 18 05/03/23 06:30 36.0 C L 75 18 100 05/03/23 06:30 126/89 05/03/23 06:15 36.0 C L 75 18 05/03/23 06:15 117/85 05/03/23 06:00 36.0 C L 75 18 05/03/23 06:00 129/89 05/03/23 05:45 36.0 C L 75 18 05/03/23 05:45 121/87 05/03/23 05:30 36.0 C L 70 18 05/03/23 05:30 121/87 05/03/23 05:15 36.0 C L 68 18 100 05/03/23 05:15 115/80 05/03/23 05:00 36.0 C L 68 18 05/03/23 05:00 118/80 05/03/23 04:45 36.0 C L 71 18 98 05/03/23 04:45 124/83 05/03/23 04:30 36.0 C L 68 18 100 05/03/23 04:30 106/71 05/03/23 04:15 36.0 C L 66 18 05/03/23 04:15 112/78 05/03/23 04:00 36.0 C L 72 18 100 05/03/23 04:00 114/81 05/03/23 03:45 36.0 C L 69 18 05/03/23 03:45 109/78 05/03/23 04:00 05/03/23 04:00 75 112/70 05/03/23 03:30 36.0 C L 69 18 05/03/23 03:30 106/70 05/03/23 03:15 36.0 C L 72 18 100 05/03/23 03:15 118/83 05/03/23 03:00 36.0 C L 73 18 100 05/03/23 03:00 118/86 O2 Del Method FiO2 05/03/23 13:30 05/03/23 13:16 05/03/23 13:16 05/03/23 13:15 05/03/23 13:00 05/03/23 12:45 05/03/23 12:30 05/03/23 12:16 05/03/23 12:16 05/03/23 12:15 05/03/23 12:00 05/03/23 11:45 05/03/23 11:30 05/03/23 11:16 05/03/23 11:16 05/03/23 11:15 05/03/23 11:00 05/03/23 10:45 05/03/23 12:00 45 05/03/23 12:00 05/03/23 11:22 45 05/03/23 10:30 05/03/23 10:16 05/03/23 10:16 05/03/23 10:15 05/03/23 10:00 05/03/23 10:00 05/03/23 09:45 05/03/23 09:45 05/03/23 09:30 05/03/23 09:30 05/03/23 09:15 05/03/23 09:15 05/03/23 09:01 05/03/23 09:01 05/03/23 09:00 05/03/23 08:45 05/03/23 08:45 05/03/23 08:30 05/03/23 08:30 05/03/23 08:15 05/03/23 08:15 05/03/23 08:00 05/03/23 08:00 05/03/23 07:45 05/03/23 07:45 05/03/23 07:30 05/03/23 07:30 05/03/23 07:15 05/03/23 07:15 05/03/23 08:00 45 05/03/23 08:00 Mechanical Vent 05/03/23 08:00 05/03/23 08:00 05/03/23 08:00 05/03/23 07:13 45 05/03/23 07:01 05/03/23 07:01 05/03/23 07:00 05/03/23 06:46 05/03/23 06:46 05/03/23 06:45 05/03/23 06:30 05/03/23 06:30 05/03/23 06:15 05/03/23 06:15 05/03/23 06:00 05/03/23 06:00 05/03/23 05:45 05/03/23 05:45 05/03/23 05:30 05/03/23 05:30 05/03/23 05:15 05/03/23 05:15 05/03/23 05:00 05/03/23 05:00 05/03/23 04:45 05/03/23 04:45 05/03/23 04:30 05/03/23 04:30 05/03/23 04:15 05/03/23 04:15 05/03/23 04:00 05/03/23 04:00 05/03/23 03:45 05/03/23 03:45 05/03/23 04:00 50 05/03/23 04:00 05/03/23 03:30 05/03/23 03:30 05/03/23 03:15 05/03/23 03:15 05/03/23 03:00 05/03/23 03:00 Laboratory Results Short CBC 05/03/23 Range/Units 03:43 WBC 5.96 (4.8-10.8) K/ul Hgb 11.5 L (12.0-16.0) g/dl Hct 36.8 L (37.0-47.0) % Plt Count 160 (130-400) K/uL BMP 05/02/23 05/03/23 17:49 03:43 Sodium 139 138 Potassium 3.9 3.5 Chloride 101 101 Carbon Dioxide 28 31 BUN 17 17 Creatinine 1.10 1.12 Glucose 148 H 142 H Calcium 8.6 8.5 L Liver Function 05/03/23 Range/Units 03:43 Total Bilirubin 1.6 H (0.2-1.0) mg/dl Direct Bilirubin 0.6 H (0-0.2) mg/dl AST 28 (13-39) U/L ALT 9 (7-52) U/L Alkaline Phosphatase 112 H (34-104) U/L Albumin 3.5 (3.4-5.0) gm/dl
[2023-05-03] MEDS: TUBE FEEDING WATER FLUSH OG SCH ×3 (15:35→22:35)
[2023-05-03 17:06] LABS: BUN Creatinine Ratio 14.4 (10-20); Calcium 8.8 mg/dl (8.6-10.3); Creatinine Clr Calc Pharmacy 94.8 ml/min; Est GFR (African American) 56.8 ml/min; Potassium 3.8 mmol/L (3.5-5.1)
[2023-05-03] MEDS ORDERED: POTASSIUM CHLORIDE 20 MEQ/15 ML UDC PO STA (17:46)
[2023-05-03] MEDS ORDERED: SODIUM BICARB 8.4% INJ 50 MEQ/50 ML SYR IV ONE (22:56)
[2023-05-03] MEDS ORDERED: SODIUM BICARB 8.4% INJ 50 MEQ/50 ML SYR IV STA (23:18)
[2023-05-03 23:28] LABS: Partial Thromboplastin Ratio 2.6
[2023-05-03 23:32] LABS: Partial Thromboplastin Time 73.3 Seconds (21.0-31.0)
[2023-05-04] MEDS ORDERED: RAPID SEQUENCE INDUCTION BAG ONE (00:06)
[2023-05-04] MEDS ORDERED: VECURONIUM BROMIDE 10 MG VIAL IV ONE ×2 (00:32→21:54)
[2023-05-04] MEDS: MIDAZOLAM HCL 125 MG/250 ML BAG IV SCH (00:50)
--- NOTE | 2023-05-04 01:21 | Communication Note ---
Date of Service: May 03, 2023- Time: 2320 Patient with episode of decrease VT delivery on the ventilator with increased EtCO2 into the 60s with rapidly increased to 70s and High PIPS into the 80s. Patient was taken off of the ventilator, sedated with 100mcg fentanyl bolus and rapid escalation of fentanyl and versed infusions. She was very difficult to bag and decreased HR to the 50s and hypotensive to the 70s. Following delivery of good BVM Etco2 started to decrease and patient became easier to ventilate. She never became hypoxic <88% during this episode, respiratory arrest was called for more biomedical equipment support specialist during this. She rebounded well by the time all showed up and did not require CPR or other adjuncts. She did receive 1 amp NAHCO3. She was placed back on the ventilator and within 15 minutes had elevation of her CO2 and high pressure alarms on the ventilator. CXR was completed that did not show any Pneumothorax or acute change. She was lavaged ans suctioned with out with minimal secretions or blood clots. She was placed back to BVM. At this time discussed case with Staff Attending Dr. Diaz, who will come into further direct evaluation of tube and airway. See his procedure note for further documentation and airway management. DX: Endotracheal tube obstruction secondary to kinking of tube prior to vocal chords as well as severe airway collapse CC Time 45 minutes dimple-arrest and ventilator management Coding Level of Care Code 75333 CRITICAL CARE EA ADD 30M
--- NOTE | 2023-05-04 01:27 | Procedure Note ---
Procedure Note Date of Service May 04, 2023 Note Procedure date: Noted above Procedure: fiberoptic bronchoscopy, endotracheal intubation Pre-procedure indication: Inability to ventilate, high peak pressures, endotracheal tube obstruction, respiratory failure Post-procedure Diagnosis: Functional endotracheal tube blockage, excessive dynamic airway collapse, respiratory failure Prior to Procedure: Informed Consent: Emergent consent implied Attending Staff: Saige Diaz DO Resident/APC: Polo Skin Prep: Not applicable Anesthesia: Continuous infusion, 10 mg vecuronium The identity of the patient was confirmed and a bedside time out was performed. Description of Procedure: Patient's vent was alarming with high peak pressures and unable to deliver volumes. Ventilator had been disconnected and attempted to [id number] which ultimately caused the pressure relief valve to pop off. Suction catheter was able to be passed down the tube lavaged and no significant foreign body was noted. During these episodes CO2 would elevate patient would start to become bradycardic and oxygen saturation would dip into the 80s. A bronchoscope was able to be passed through the 7.5 endotracheal tube and a significant functional kink of the endotracheal tube at approximately 20 cm was noted. I believe this kink is secondary to patient's body habitus given the depth at which the constriction was found. Additionally the patient's airways were mildly erythematous and even with 15 cm water pressure positive and expiratory pressure there was significant greater than 50% dynamic airway collapse. I attempted to locate a rigid endotracheal tube which was unavailable. The decision was to proceed with replacement of the endotracheal tube given the ventilatory failure and concern for cardiac arrest. The plan would be to exchange for a larger lumen endotracheal tube to hopefully provide more rigid support in the body habitus. Care was taken to ramp the patient and get the tragus in line with the sternal notch to optimize positioning. A tube [facility] with a 3 glide scope. The cuff was deflated and the 7.5 dysfunctional tube was removed. An 8.5 endotracheal tube was railroaded over the tube exchanger under direct visualization of the GlideScope. The tube exchanger was noted to pass through the vocal cords however in attempting to advance the endotracheal tube there was massive redundant tissue which could not be dislodged and had near total obstruction of the glottic opening while attempting to advance the endotracheal tube. Multiple attempts were completed, the patient desaturated into the mid 80s and a decision to abort the process was made. A 5 LMA was inserted into the patient's airway inflated with 30 mL of air a adequate seal was obtained and the patient was able to be [id number] ventilated back to 99% pulse oximetry. Equipment was changed to a 4 glide scope, and a 8.0 endotracheal tube was utilized with a metal stylette. After positioning the glide scope the LMA was deflated and removed. An adequate view was achieved, again massive redundant tissue was noted; however, with the endotracheal tube over the metal stylette this redundant tissue was able to be manipulated out of the glottic opening and the endotracheal tube was visualized passing the vocal cords. The bronchoscope was again taken and passed through the endotracheal tube to confirm positioning. Tube was secured at 22 cm at the teeth and a postprocedure chest x-ray has been ordered Complications: None Specimens: None obtained Estimated blood loss: Zero Coding CPT Codes Resuscitation - Resuscitation: 62152 Endotracheal Intubation, emergency ([id number]) Pulmonary/Thoracic - Pulmonary and Thoracic: 80515 Bronchoscopy, treat blockage ([id number]) [facility] [place] Procedure Codes (Charges) Pulmonary/Thoracic Procedure 1: Pulmonary and Thoracic: 23878 Bronchoscopy, treat blockage Resuscitation Resuscitation: 72235 Endotracheal Intubation, emergency
[2023-05-04] MEDS ORDERED: VECURONIUM BROMIDE 10 MG VIAL IV STA (01:34)
[2023-05-04] MEDS ORDERED: acetaZOLAMIDE 500 MG in SYRINGE 0 ML IV STA (01:36)
[2023-05-04] MEDS: HEPARIN SODIUM/DEXTROSE 25,000 UNITS/500 ML BAG IV SCH ×2 (02:16→12:18)
[2023-05-04] MEDS ORDERED: BUMETANIDE 2 MG in SYRINGE 0 ML IV ONE (02:31)
[2023-05-04] MEDS: TUBE FEEDING WATER FLUSH OG SCH ×5 (02:40→17:40)
[2023-05-04] MEDS: INSULIN ASPART PER UNIT CHARGE SC SCH ×4 (02:48→17:40)
[2023-05-04] MEDS: fentaNYL citrate 2,500 MCG/250 ML BAG IV SCH ×4 (04:38→20:11)
[2023-05-04 05:25] LABS: Basophils # (auto) 0.07 K/uL (0.00-0.20); Basophils % (auto) 1.1 %; Eosinophils # (auto) 0.08 K/uL (0.00-0.50); Eosinophils % (auto) 1.2 %; Hemoglobin 11.4 g/dl (12.0-16.0); Immature Granulocytes # (auto) 0.05 K/uL (0.01-0.20); Immature Granulocytes % (auto) 0.8 %; Lymphocytes # (auto) 0.57 K/uL (1.20-3.40); Lymphocytes % (auto) 8.6 %; Mean Corpuscular Hemoglobin 28.6 pg (25.0-34.0); Mean Corpuscular Hgb Conc 31.7 g/dL (32.0-36.0); Mean Corpuscular Volume 90.2 fL (80.0-100.0); Mean Platelet Volume 10.8 fL (9.4-12.4); Monocytes # (auto) 0.65 K/uL (0.11-0.59); Monocytes % (auto) 9.8 %; Neutrophils # (auto) 5.21 K/uL (1.40-6.50); Neutrophils % (auto) 78.5 %; Platelet Count 158 K/uL (130-400); RDW Coefficient of Variation 19.6 % (11.5-14.5); Red Blood Count 3.99 M/uL (4.20-5.40); White Blood Count 6.63 K/ul (4.8-10.8)
[2023-05-04 05:38] LABS: BUN Creatinine Ratio 14.4 (10-20); C Reactive Protein 11.71 mg/dl (0-0.5); Calcium 8.8 mg/dl (8.6-10.3); Creatinine Clr Calc Pharmacy 94.8 ml/min; Est GFR (African American) 56.8 ml/min; Magnesium 1.7 mg/dl (1.7-2.4); Phosphorus 3.7 mg/dl (2.5-4.9); Potassium 3.7 mmol/L (3.5-5.1)
[2023-05-04 06:05] LABS: INR 1.4 (0.9-1.1); Partial Thromboplastin Ratio 1.9; Prothrombin Time 14.6 Seconds (9.0-12.0)
[2023-05-04 06:17] LABS: Partial Thromboplastin Time 53.7 Seconds (21.0-31.0)
--- NOTE | 2023-05-04 07:20 | XRay Report ---
XR chest 1V portable HISTORY: 62 years-old Female eval ett placement, eval for pneumothorax acute respiratory failure COMPARISON: 05/03/2023 at 1:36 PM TECHNIQUE: AP view of the chest FINDINGS: Endotracheal tube overlies the midline, 3.2 cm superior to the emilee. Enteric tube courses into the stomach with distal tip outside the [id number]. Right IJ central venous catheter is noted with dis ezra tip in the expected location of the upper SVC. Cardiomegaly. No pneumothorax. Probable small pleural effusions with mild persistent bibasilar densit ies. Pulmonary vascular congestion. Bones appear grossly intact. IMPRESSION: 1. Lines and tubes as above. 2. Cardiomegaly with pulmonary vascular congestion and small pleural effusions. 3. Mild persistent bibasilar opacities. ACT 112: Negative or not required by law. The above report was generated using voice recognition software. It may contain grammatical, syntax o r spelling errors. Electronically signed by: Juan Manuel Rodriguez M.D. 05/04/2023 7:19 AM
[2023-05-04] MEDS ORDERED: STAT IV Infusion **Titration per Protocol STA (07:32)
--- NOTE | 2023-05-04 07:32 | Critical Care Progress Note ---
Date of Service May 04, 2023 Assessment & Plan (1) Acute cor pulmonale: Plan: Patient is critically ill due to acute hypoxic respiratory failure secondary to acute cor pulmonale and viral pneumonia Neuro: Sedation with Versed and fentanyl -Avoiding propofol secondary to negative inotropic effects -Transition to precedex in preparation for possible extubation: Patient did not tolerate Precedex discontinuing Cymbalta 30 mg every morning: Home medication - On hold as medication cannot be crushed Cardiovascular: Acute cor pulmonale: -Suspect there is a significant chronic portion Of multiple groups: Group 2, possibly group 3, questionable group 4 -Venous duplex reviewed, near nondiagnostic no obvious proximal DVT -Discontinuing empiric heparinization: Risk of hemorrhage now exceeding risk of thromboembolic disease -Emergent bronchoscopy secondary to acute airway obstruction revealed excessive dynamic airway collapse -There is obviously significant component of pickwickian syndrome and presumptive hypoxia driving the right-sided heart failure unclear to what extent if any there is chronic venous thromboembolic disease now with ongoing blood loss secondary to epistaxis, COVID, patient being a profoundly poor candidate for tracheostomy secondary to body habitus I feel risks of systemic anticoagulation have increased and patient is best served to optimize herself for possible extubation and we can hopefully revisit needs for systemic anticoagulation if she is able to liberate from the ventilator History hypertension -Metoprolol 12.5 mg twice daily -Cozaar 100 mg by mouth nightly - hold antihypertensives while on pressors which were started during hypercapnic episodes with endotracheal tube obstruction Pulmonary: Adenovirus and COVID 19 virus positive, viral pneumonia -Supportive care, pulmonary toilet -Doxycycline and Rocephin for community-acquired pneumonia with atypical coverage (no risk factors for Pseudomonas) - discontinuing as there is no white count, afebrile and minimal oxygen requirement Acute hypoxic and hypercapnic respiratory failure -Significant tracheomalacia: Excessive dynamic airway collapse -Would optimally utilize esophageal pressure monitors, patient with massive morbid obesity and I suspect that her transmural pressure is low despite being on high PEEP levels History of obstructive sleep apnea Unable to obtain advanced imaging: CT as patient habitus too large to be accommodated by our CT scanner as confirmed by nursing staff utilizing measurement devices Abdomen Morbid obesity -Lipids and triglycerides reviewed -tube feeding per dietary Mildly elevated bilirubin direct and total -Minimal elevation significance unclear no additional work-up planned at this time Minimally elevated alkaline phosphatase -Minimal elevation significance unclear no additional work-up planned at this time Renal: Rendon catheter for accurate I's and O's -Approximately 4 L negative - diuresis, goal net negative -20 mEq potassium daily: optimize greater than 4, additional multivitamin, received additional diuretics: Acetazolamide and Bumex overnight Lower potassium, will be diuresing so will supplement potassium enterally Hypocalcemia: Mild Optimize magnesium to level greater than 2 Hematology: Mildly elevated INR: 1.4 -Unclear significance Anemia: Mild Epistaxis -Appears to be anterior, appears to be well controlled with Afrin -Discontinuing systemic anticoagulation secondary to high risk characteristics and hopeful liberation from ventilator Infectious disease Viral pneumonia Procalcitonin negative, no radiographic infiltrates, will discontinue antibiotics Blood cultures: 1 culture consistent with probable contaminant repeat blood cultures obtained: No white count afebrile -Surface wound culture obtained in the emergency department unclear location unclear significance as surface wound cultures are traditionally nondiagnostic no evidence of active infection -Bronchoscopy for deep lung specimen contraindicated with COVID-19 positivity (bronchoscopy for tube exchange was required given high risk characteristics) Endocrine ICU glycemic control protocol Elevated A1c 7.0 with type 2 diabetes Lines: Right internal jugular central venous catheter placed 05/02 Right axillary arterial catheter placed 05/02 CODE STATUS: Full code Clinical update 12:00. Patient had episode of hemodynamic instability this was likely after starting Precedex to help wean towards liberation from ventilator. Patient required waxing and waning doses of vasoactive's. She appears to have stabilized. I am discontinuing her antihypertensives at the present moment. We will also discontinue the heparin as the risks of ongoing blood loss and bleeding I believe outweigh the benefits of possible venous thromboembolic disease. Transitioned from volume control ventilation to pressure support with PEEP of 20. Optimizing her ventilator and transitioning from positive pressure ventilation to negative pressure ventilation is going to be extremely high risk and patient will be at extreme risk for reintubation from not only body habitus and redundant tissues which appear to ball-valve in the glottic opening, but extreme right-sided ventricular failure the transition between positive and negative pressure ventilation will be concerning. The hypotension experienced today I think is indicative of nearing maximal diuresis given profound pulmonary hypertension. We will consider adding sildenafil however the patient's oxygen saturations appear to be appropriate with a relatively normal gradient (2) Respiratory failure with hypercapnia: (3) Hypertension: (4) Diabetes: (5) Morbid obesity with BMI of 70 and over, adult: (6) COVID-19: (7) Adenoviral bronchitis: (8) Viral pneumonia: Admission and Anticipated Discharge Date Admission Date: May 02, 2023 Supervising Physician Co-Signing Physician Notes I have personally spent 85 minutes of critical care time in the direct management of this patient. This is a life/limb threatening event. This includes time spent evaluating patient, direct bedside care, chart review, placing orders, interpretation of diagnostic studies, discussion with consultants, patient, and/or family members regarding treatment decisions, as well as other required patient management activities. This time is exclusive of all separately billable procedures, and teaching time and separate from and in addition to any other critical care service time. Subjective Overnight patient required exchange of endotracheal tube secondary to recurrent mechanical obstruction. Small amount of epistaxis Review of Systems Review of Systems: Unobtainable due to endotracheal tube Physical Exam Physical Exam: General: Sedated. nontoxic. Skin: Warm, dry, Head: Atraumatic Ears, nose, mouth and throat: airway obscured by endotracheal tube -Trickle of blood emanating from left nare, subglottic suction not demonstrating bloody secretions nor was there any noticeable bloody secretions in the posterior oropharynx during tube exchange Cardiovascular: Normal peripheral perfusion Respiratory: Ventilator settings reviewed Gastrointestinal: Non distended Musculoskeletal: No deformity Results & Data Results & Data Vital Signs (Past 12 Hours) Vital Signs Temp Pulse Resp BP Pulse Ox O2 Del Method O2 Del Method 05/04/23 05:01 36.4 C L 73 18 109/80 96 05/04/23 05:01 109/80 05/04/23 04:16 36.3 C L 74 18 103/78 94 05/04/23 03:46 36.4 C L 74 18 112/79 94 05/04/23 03:01 36.0 C L 74 18 113/82 100 05/04/23 00:00 75 05/04/23 04:30 05/04/23 04:00 74 19 100 05/04/23 01:13 80 18 100 05/04/23 02:46 36.1 C L 74 18 100 05/04/23 02:46 111/79 05/04/23 02:31 36.4 C L 74 18 118/80 100 05/04/23 02:31 118/80 05/04/23 02:16 36.2 C L 74 18 107/84 05/04/23 02:01 36.2 C L 74 18 140/70 05/04/23 01:46 36.3 C L 74 18 143/82 H 05/04/23 01:31 36.5 C 74 18 111/61 05/04/23 01:16 36.5 C 75 18 115/73 98 05/04/23 01:01 36.5 C 75 0 L 122/82 99 05/04/23 00:46 36.6 C 71 0 L 102/71 98 05/04/23 00:31 36.7 C 75 6 L 100/63 95 05/04/23 00:16 36.8 C 75 15 117/70 05/04/23 00:01 36.8 C 76 26 H 122/78 97 05/03/23 23:46 36.9 C 76 19 123/88 71 L 05/03/23 23:31 37.0 C 76 22 113/87 98 05/03/23 23:00 36.8 C 12 96 05/03/23 22:15 36.8 C 76 18 97/68 L 90 05/03/23 22:11 36.7 C 76 18 86/68 L 05/03/23 21:16 36.6 C 75 18 113/70 05/04/23 02:51 05/04/23 02:51 Mechanical Vent 05/03/23 20:45 Mechanical Vent 05/03/23 20:27 05/03/23 20:16 36.7 C 76 15 96/72 L 93 05/03/23 20:13 84 21 98 FiO2 05/04/23 05:01 05/04/23 05:01 05/04/23 04:16 05/04/23 03:46 05/04/23 03:01 05/04/23 00:00 05/04/23 04:30 40 05/04/23 04:00 60 05/04/23 01:13 100 05/04/23 02:46 05/04/23 02:46 05/04/23 02:31 05/04/23 02:31 05/04/23 02:16 05/04/23 02:01 05/04/23 01:46 05/04/23 01:31 05/04/23 01:16 05/04/23 01:01 05/04/23 00:46 05/04/23 00:31 05/04/23 00:16 05/04/23 00:01 05/03/23 23:46 05/03/23 23:31 05/03/23 23:00 05/03/23 22:15 05/03/23 22:11 05/03/23 21:16 05/04/23 02:51 40 05/04/23 02:51 05/03/23 20:45 50 05/03/23 20:27 40 05/03/23 20:16 05/03/23 20:13 40 Critical Care Results & Data Vital Signs (Past 12 Hours) Vital Signs Temp Pulse Resp BP Pulse Ox O2 Del Method O2 Del Method 05/04/23 05:01 36.4 C L 73 18 109/80 96 05/04/23 05:01 109/80 05/04/23 04:16 36.3 C L 74 18 103/78 94 05/04/23 03:46 36.4 C L 74 18 112/79 94 05/04/23 03:01 36.0 C L 74 18 113/82 100 05/04/23 00:00 75 05/04/23 04:30 05/04/23 04:00 74 19 100 05/04/23 01:13 80 18 100 05/04/23 02:46 36.1 C L 74 18 100 05/04/23 02:46 111/79 05/04/23 02:31 36.4 C L 74 18 118/80 100 05/04/23 02:31 118/80 05/04/23 02:16 36.2 C L 74 18 107/84 05/04/23 02:01 36.2 C L 74 18 140/70 05/04/23 01:46 36.3 C L 74 18 143/82 H 05/04/23 01:31 36.5 C 74 18 111/61 05/04/23 01:16 36.5 C 75 18 115/73 98 05/04/23 01:01 36.5 C 75 0 L 122/82 99 05/04/23 00:46 36.6 C 71 0 L 102/71 98 05/04/23 00:31 36.7 C 75 6 L 100/63 95 05/04/23 00:16 36.8 C 75 15 117/70 05/04/23 00:01 36.8 C 76 26 H 122/78 97 05/03/23 23:46 36.9 C 76 19 123/88 71 L 05/03/23 23:31 37.0 C 76 22 113/87 98 05/03/23 23:00 36.8 C 12 96 05/03/23 22:15 36.8 C 76 18 97/68 L 90 05/03/23 22:11 36.7 C 76 18 86/68 L 05/03/23 21:16 36.6 C 75 18 113/70 05/04/23 02:51 05/04/23 02:51 Mechanical Vent 05/03/23 20:45 Mechanical Vent 05/03/23 20:27 05/03/23 20:16 36.7 C 76 15 96/72 L 93 05/03/23 20:13 84 21 98 FiO2 05/04/23 05:01 05/04/23 05:01 05/04/23 04:16 05/04/23 03:46 05/04/23 03:01 05/04/23 00:00 05/04/23 04:30 40 05/04/23 04:00 60 05/04/23 01:13 100 05/04/23 02:46 05/04/23 02:46 05/04/23 02:31 05/04/23 02:31 05/04/23 02:16 05/04/23 02:01 05/04/23 01:46 05/04/23 01:31 05/04/23 01:16 05/04/23 01:01 05/04/23 00:46 05/04/23 00:31 05/04/23 00:16 05/04/23 00:01 05/03/23 23:46 05/03/23 23:31 05/03/23 23:00 05/03/23 22:15 05/03/23 22:11 05/03/23 21:16 05/04/23 02:51 40 05/04/23 02:51 05/03/23 20:45 50 05/03/23 20:27 40 05/03/23 20:16 05/03/23 20:13 40 Lab & Micro Results (Past 24 Hours) RBC 3.99 M/uL (4.20-5.40) L 05/04/23 WBC 6.63 K/ul (4.8-10.8) 05/04/23 Hgb 11.4 g/dl (12.0-16.0) L 05/04/23 Hct 36.0 % (37.0-47.0) L 05/04/23 MCV 90.2 fL (80.0-100.0) 05/04/23 MCH 28.6 pg (25.0-34.0) 05/04/23 MCHC 31.7 g/dL (32.0-36.0) L 05/04/23 RDW Standard Deviation 63.0 fL (36.4-46.3) H 05/04/23 RDW Coefficient of Variation 19.6 % (11.5-14.5) H 05/04/23 Plt Count 158 K/uL (130-400) 05/04/23 MPV 10.8 fL (9.4-12.4) 05/04/23 Neutrophils (%) (Auto) 78.5 % 05/04/23 Lymphocytes (%) (Auto) 8.6 % 05/04/23 Monocytes # (Auto) 0.65 K/uL (0.11-0.59) H 05/04/23 Eosinophils # (Auto) 0.08 K/uL (0.00-0.50) 05/04/23 Immature Granulocyte % (Auto) 0.8 % 05/04/23 Neutrophils # (Auto) 5.21 K/uL (1.40-6.50) 05/04/23 Lymphocytes # (Auto) 0.57 K/uL (1.20-3.40) L 05/04/23 Monocytes # (Auto) 0.65 K/uL (0.11-0.59) H 05/04/23 Eosinophils # (Auto) 0.08 K/uL (0.00-0.50) 05/04/23 Basophils # (Auto) 0.07 K/uL (0.00-0.20) 05/04/23 Immature Granulocyte # (Auto) 0.05 K/uL (0.01-0.20) 3 Na 137 mmol/L (136-145) 05/04/23 K 4.9 mmol/L (3.5-5.1) 05/04/23 Cl 101 mmol/L (98-107) 05/04/23 CO2 33 mmol/L (21-32) H 05/04/23 Anion Gap 3 (3-11) 05/04/23 BUN 17 mg/dl (6-23) 05/04/23 Creatinine 1.27 mg/dl (0.6-1.2) H 05/04/23 Estimated GFR ( Amer) 52.0 ml/min 05/04/23 Estimated GFR (Non-Af Amer) 44.9 ml/min 05/04/23 BUN/Creatinine Ratio 13.4 (10-20) 05/04/23 Glu 221 mg/dl (70-99(Fasting)) H 05/04/23 Ca 12.0 mg/dl (8.6-10.3) H 05/04/23 Phosphorus Level 4.2 mg/dl (2.5-4.9) 05/04/23 Mg 1.9 mg/dl (1.7-2.4) 05/04/23 10:18 Calcium Level 12.0 mg/dl (8.6-10.3) H 05/04/23 10:18 Prothromb Time International Ratio 1.4 (0.9-1.1) H 05/04/23 04 :52 Arterial Blood pH 7.24 (7.35-7.45) L 05/04/23 10:18 Arterial Blood Partial Pressure CO2 75 mmHg (35-46) H 05/04/23 10:18 Arterial Blood Partial Pressure O2 86 mmHg (80-95) 05/04/23 10: 18 Arterial Blood HCO3 32 mmol/L (19-24) H 05/04/23 10:18 Arterial Blood Base Excess 2.4 mEq/L (-9-1.8) H 05/04/23 10:18 Arterial Blood Oxygen Saturation 96.4 % (90-95) H 05/04/23 10:1 8 Blood Gas Oxygen Given 6 05/04/23 10:18 Rush Test Pos (Pos) 05/04/23 10:18 Microbiology 05/02/23 02:38 Aerobic Blood Culture - Preliminary Blood No growth in Aerobic bottle after 48 hours. Anaerobic Blood Culture - Preliminary No growth in Anaerobic bottle after 48 hours. 05/02/23 01:40 Aerobic Blood Culture - Preliminary Blood Coag neg staph not lugdunensis Anaerobic Blood Culture - Preliminary Coag neg staph not lugdunensis 05/02/23 01:40 Gram Stain - Final Back Wound Culture - Preliminary Gram negative bacilli Diagnostic Findings (Past 24 Hours) Chest X-Ray 05/03/23 06:00 XR chest 1V portable HISTORY: 62 years-old Female intubation acute respiratory failure COMPARISON: 05/02/2023 TECHNIQUE: AP view of the chest FINDINGS: Cardiac silhouette is enlarged. Endotracheal tube overlies the midline, 2.8 cm superior to the emilee. Right IJ central venous catheter is in unchanged positioning. No pneumothorax. Patient is rotated to the left. Pulmonary vascular congestion with probable small pleural effusions. Bones appear grossly intact. The enteric tube appears to have been removed. IMPRESSION: 1. Line and tube placement as above. 2. No pneumothorax. 3. Cardiomegaly with pulmonary vascular congestion. 4. Probable small pleural effusions. ACT 112: Negative or not required by law. The above report was generated using voice recognition software. It may contain grammatical, syntax or spelling errors. Electronically signed by: Juan Manuel Rodriguez M.D. 05/03/2023 7:33 AM Chest X-Ray 05/03/23 13:24 XR chest 1V portable HISTORY: 62 years-old Female placement of OGT/feeding tube. Status post placement of a feeding tube COMPARISON: 05/03/2023 TECHNIQUE: AP view of the chest FINDINGS: Enteric tube distal tip projects over the expected location of the mid stomach. Limited exam secondary to positioning. Unchanged positioning of the endotracheal and right IJ central venous catheters. No pneumothorax. Cardiomegaly with pulmonary vascular congestion and probable small pleural effusions. Mild biba silar densities. Bones appear grossly intact. IMPRESSION: 1. Lines and tubes as above. 2. No pneumothorax. 3. Cardiomegaly with pulmonary vascular congestion. 4. Probable small pleural effusions. ACT 112: Negative or not required by law. The above report was generated using voice recognition software. It may contain grammatical, syntax or spelling errors. Electronically signed by: Juan Manuel Rodriguez M.D. 05/03/2023 1:48 PM Chest X-Ray 05/03/23 23:18 XR chest 1V portable HISTORY: 62 years-old Female eval ett placement, eval for pneumothorax acute respiratory failure COMPARISON: 05/03/2023 at 1:36 PM TECHNIQUE: AP view of the chest FINDINGS: Endotracheal tube overlies the midline, 3.2 cm superior to the emilee. Enteric tube courses into the stomach with distal tip outside the [id number]. Right IJ central venous catheter is noted with distal tip in the expected location of the upper SVC. Cardiomegaly. No pneumothorax. Probable small pleural effusions with mild persistent bibasilar densities. Pulmonary vascular congestion. Bones appear grossly intact. IMPRESSION: 1. Lines and tubes as above. 2. Cardiomegaly with pulmonary vascular congestion and small pleural effusions. 3. Mild persistent bibasilar opacities. ACT 112: Negative or not required by law. The above report was generated using voice recognition software. It may contain grammatical, syntax or spelling errors. Electronically signed by: Juan Manuel Rodriguez M.D. 05/04/2023 7:19 AM I & O Totals 24 Hours 05/03/23 05/04/23 05/05/23 06:59 06:59 06:59 Intake Total 1360.484 / 7758.260 7531.654 / 2449.654 266.399 / 266.399 Output Total 3325 / 3325 4675 / 4675 Balance -1964.516 / -1964.516 -2225.346 / -2225.346 266.399 / 266.399 Cumulative 05/02/23 01:14 thru 05/04/23 07:18 Intake Total 4176.537 Output Total 8000 Balance -3823.463 RT Ventilator Mngmt (Last Documented) Ventilator Ordered Settings Ventilator Support Mode Assist Control 05/04/23 04:30 Respiratory Rate 18 05/04/23 05:01 Ventilator Tidal Volume 330 05/04/23 04:30 Setting Minute Ventilation 6 05/04/23 04:00 Positive End Expiratory 20 05/04/23 04:30 Pressure Fraction of Inspired Oxygen 40 05/04/23 04:30 Machine Comment Fio2 titrated to 60% 05/04/23 04:00 Ventilator - PT Measurements Respiratory Rate 18 Exhaled Tidal Volume 330 Minute Ventilation 6 Peak Inspiratory Airway 44 Pressure Plateau Pressure 36 Respiratory Cycle Inspiratory: 1:2.3 Expiratory Ratio Inspiratory Phase Time 1.0 End-Tidal CO2 39 Static Lung Compliance 20.63 Dynamic Lung Compliance 13.75 Normal Static Lung Compliance 43.00 Patient Measurements Comment decreased fi02 to 50% Coding Level of Care Code 03270 CRITICAL CARE 1ST 30-74M Additional Critical Care Time Additional 30min Critical Care Time: Yes - 57750 Diagnoses Acute cor pulmonale I26.09 Respiratory failure with hypercapnia J96.92 Hypertension I10 Diabetes E11.9 Morbid obesity with BMI of 70 and over, adult E66.01; Z68.45 COVID-19 U07.1 Adenoviral bronchitis J40; B97.0 Viral pneumonia J12.9 Additional Codes Critical Care Time - Additional 30min Critical Care Time: Yes - 00564 ([id number])
[2023-05-04] MEDS ORDERED: dexMEDEtomidine 200 MCG/50 ML BAG IV SCH (07:45)
--- NOTE | 2023-05-04 08:01 | XRay Report ---
XR chest 1V portable HISTORY: 62 years-old Female intubation acute respiratory failure COMPARISON: 05/04/2023 at 1:23 AM TECHNIQUE: AP view of the chest FINDINGS: Endotracheal tube overlies the midline, 2.9 cm superior to the emilee. Enteric tube courses into the stomach with distal tip outside the [id number]. Right IJ central venous catheter is noted with dis ezra tip in the expected location of the upper SVC. Cardiomegaly. No pneumothorax. Probable small righ t pleural effusion. Interval development of complete opacification of the left hemithorax Pulmonary v ascular congestion. Bones appear grossly intact. IMPRESSION: 1. Lines and tubes as above. 2. Interval development of complete left hemithorax opacification, possibly from mucous plugging and atelectasis/collapse. Follow-up recommended. 3. No pneumothorax identified. ACT 112: Negative or not required by law. The above report was generated using voice recognition software. It may contain grammatical, syntax o r spelling errors. Electronically signed by: Juan Manuel Rodriguez M.D. 05/04/2023 8:00 AM
--- NOTE | 2023-05-04 08:04 | XRay Report ---
XR chest 1V portable HISTORY: evaluate new ETT and OGT placement COMPARISON: Chest 05/03/2023. FINDINGS: Rotated study. The endotracheal tube appears to terminate approximately 2 cm from the gillian a. A nasogastric tube terminates below the diaphragm. The tip is not included on this study. There ar e low lung volumes. The cardiac silhouette remains enlarged. No pneumothorax. Suspect trace bilateral pleural effusions. There is mild central pulmonary vascular congestion without overt edema. Left ret rocardiac density persists. There are calcifications within the mitral annulus. Right perihilar densi ties are again noted. The central pulmonary arteries appear enlarged. IMPRESSION: 1. Satisfactory support line placement. 2. Cardiomegaly and mild pulmonary vascular congestion persists. 3. Trace bilateral pleural effusions again noted. Left retrocardiac density and a right perihilar haz y airspace opacity persist. ACT 112: Negative or not required by law. Electronically signed by: Ramiro Rodrigues M.D. 05/04/2023 8:03 AM
[2023-05-04] MEDS: MULTI VIT W/MINERALS LIQUID 15 ML UDP PO SCH (08:56)
[2023-05-04] MEDS: ASPIRIN 81 MG CHEW PO SCH (08:56)
[2023-05-04] MEDS: METOPROLOL TARTRATE 25 MG TAB PO SCH (08:56)
[2023-05-04] MEDS: FUROSEMIDE 40 MG/4 ML VIAL IV SCH ×2 (08:58→17:09)
[2023-05-04] MEDS ORDERED: POTASSIUM CHLORIDE PWD 20 MEQ PACK PO SCH (09:00)
[2023-05-04] MEDS ORDERED: dexMEDEtomidine 400 MCG/100 ML Bag (Premixed) IV SCH (09:45)
[2023-05-04] MEDS: ROSUVASTATIN CALCIUM 10 MG TAB PO SCH (10:28)
[2023-05-04 10:30] LABS: Base Excess ABG 2.4 mEq/L (-9-1.8); HCO3 ABG 32 mmol/L (19-24); Oxygen Saturation ABG 96.4 % (90-95); PCO2 ABG 75 mmHg (35-46); PO2 ABG 86 mmHg (80-95); pH ABG 7.24 (7.35-7.45)
[2023-05-04] MEDS ORDERED: Standard Conc; 4 MG in 250 mL for HYPOTENSION IV SCH (10:30)
[2023-05-04 10:40] LABS: iSTAT Art Bld Gas pCO2 Correct 59 mmHg (35-46); iSTAT Art Bld Gas pH Corrected 7.333 (7.35-7.45); iSTAT Arterial Blood Gas HCO3 32 meg/L (19-24); iSTAT Arterial Blood Gas pCO2 61 mmHg (35-46); iSTAT Arterial Blood Gas pH 7.32 (7.35-7.45); iSTAT Arterial Blood Gas pO2 306 mmHg (80-95); iSTAT Arterial Blood Gas pO2 C 303; iSTAT Carbon Dioxide 34 mmol/L (24-31); iSTAT FiO2 100 %; iSTAT Hematocrit 41 % (37-47); iSTAT Hemoglobin 13.9 g/dl (12.0-16.0); iSTAT Potassium 4.8 mmol/L (3.3-5.0); iSTAT Site Art Line; iSTAT Sodium 138 mmol/L (135-144)
[2023-05-04 10:58] LABS: BUN Creatinine Ratio 13.4 (10-20); Creatinine Clr Calc Pharmacy 88.1 ml/min; Est GFR (Non-African American) 44.9 ml/min; Magnesium 1.9 mg/dl (1.7-2.4); Phosphorus 4.2 mg/dl (2.5-4.9); Potassium 4.9 mmol/L (3.5-5.1)
[2023-05-04 12:10] LABS: Allen Test Pos (Pos)
[2023-05-04] MEDS: MAX Conc; 32mg in 250mL IV SCH ×2 (12:13→20:04)
[2023-05-04] MEDS: PANTOprazole 40 MG in SYRINGE 0 ML IV SCH (12:17)
--- NOTE | 2023-05-04 13:19 | Cardiology Progress Note ---
Date of Service May 04, 2023 Assessment & Plan (1) Acute on chronic respiratory failure with hypoxia and hypercapnia: (2) CHELI (obstructive sleep apnea): (3) Acute cor pulmonale: (4) Morbid obesity with BMI of 70 and over, adult: (5) Atrial flutter: (6) COVID-19: Plan 62-year-old female with morbid obesity BMI greater than 70 weight greater than 500 pounds presents with evidence of acute cor pulmonale likely acute on chronic hypercapnic respiratory failure possibly precipitated by viral infection. Rhythm reveals probable coarse A-fib flutter Currently being managed in the intensive care unit on mechanical ventilation, low-dose pressors. Patient is responding to diuretics Anticoagulation initiated with heparin appropriately X-rays and exam consistent with right heart failure secondary to above. LV systolic function low normal Agree with current plans with continued respiratory support cautious diuresis following renal function Avoid AV brittani blocking drugs given resting bradycardia 05/03/2023 Hemodynamically stable and mechanically ventilated Continue IV diuretics, IV heparin Supplement potassium to greater than 4 05/04/2023 Marginally compensated with evidence of cor pulmonale and demanding right heart failure. 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 add Admission and Anticipated Discharge Date Admission Date: May 02, 2023 Subjective Events of prior night and this morning noted Still requiring pressor support after worsening mechanical issues with ventilatory support Transient hypotension and bradycardia this morning now improved on pressors Atrial flutter remains present with controlled ventricular sponsor Has manifested relatively good diuresis but still massively volume overload Review of Systems Review of Systems: Unobtainable due to endotracheal tube Results & Data Vital Signs (Past 12 Hours) Vital Signs Temp Pulse Resp BP Pulse Ox O2 Del Method O2 Del Method 05/04/23 12:59 37.0 C 74 18 05/04/23 12:59 124/94 05/04/23 12:45 37.0 C 74 6 L 96 05/04/23 12:44 96/74 L 05/04/23 12:44 37.0 C 74 7 L 05/04/23 12:30 37.0 C 74 7 L 95 05/04/23 12:29 37.0 C 74 7 L 88 L 05/04/23 12:15 36.9 C 74 6 L 90 05/04/23 12:14 36.9 C 74 7 L 05/04/23 12:14 113/93 05/04/23 12:00 36.9 C 74 19 94 05/04/23 11:59 36.8 C 74 19 94 05/04/23 11:59 135/86 05/04/23 11:45 36.8 C 62 18 94 05/04/23 11:44 36.8 C 59 L 17 05/04/23 11:44 137/100 05/04/23 11:30 36.7 C 73 0 L 95 05/04/23 11:29 36.7 C 73 8 L 91 05/04/23 11:29 111/78 05/04/23 11:15 36.6 C 73 8 L 92 05/04/23 11:14 124/91 05/04/23 11:14 36.6 C 73 8 L 93 05/04/23 11:00 36.5 C 73 8 L 93 05/04/23 10:59 36.5 C 73 6 L 05/04/23 10:59 122/90 05/04/23 10:45 36.5 C 72 11 L 97 05/04/23 10:44 146/105 H 05/04/23 10:44 36.5 C 72 10 L 96 05/04/23 10:30 36.4 C L 72 9 L 91 05/04/23 10:29 36.4 C L 66 11 L 05/04/23 10:29 156/85 H 05/04/23 10:15 36.3 C L 70 22 85 L 05/04/23 10:00 36.2 C L 59 L 17 05/04/23 09:59 36.2 C L 67 1 L 05/04/23 09:46 36.1 C L 61 18 93 05/04/23 09:46 96/74 L 05/04/23 09:45 36.1 C L 58 L 18 93 05/04/23 09:31 36.1 C L 56 L 18 97 05/04/23 09:31 94/65 L 05/04/23 09:30 36.1 C L 39 L 18 97 05/04/23 09:16 36.1 C L 74 18 97 05/04/23 09:16 107/81 05/04/23 09:15 36.1 C L 74 22 97 05/04/23 09:01 109/69 05/04/23 09:01 36.0 C L 74 18 97 05/04/23 09:00 36.0 C L 74 18 97 05/04/23 08:46 36.0 C L 74 18 05/04/23 08:46 117/70 05/04/23 12:00 05/04/23 12:00 91 H 05/04/23 08:00 05/04/23 08:00 Mechanical Vent 05/04/23 08:00 91 H 05/04/23 08:00 68 05/04/23 08:00 Mechanical Vent 05/04/23 10:45 91 H 10 L 90 05/04/23 07:55 74 18 98 05/04/23 05:01 36.4 C L 73 18 109/80 96 05/04/23 05:01 109/80 05/04/23 04:16 36.3 C L 74 18 103/78 94 05/04/23 03:46 36.4 C L 74 18 112/79 94 05/04/23 03:01 36.0 C L 74 18 113/82 100 05/04/23 04:30 05/04/23 04:00 74 19 100 05/04/23 02:46 36.1 C L 74 18 100 05/04/23 02:46 111/79 05/04/23 02:31 36.4 C L 74 18 118/80 100 05/04/23 02:31 118/80 05/04/23 02:16 36.2 C L 74 18 107/84 05/04/23 02:01 36.2 C L 74 18 140/70 05/04/23 01:46 36.3 C L 74 18 143/82 H 05/04/23 01:31 36.5 C 74 18 111/61 05/04/23 01:16 36.5 C 75 18 115/73 98 05/04/23 02:51 05/04/23 02:51 Mechanical Vent FiO2 05/04/23 12:59 05/04/23 12:59 05/04/23 12:45 05/04/23 12:44 05/04/23 12:44 05/04/23 12:30 05/04/23 12:29 05/04/23 12:15 05/04/23 12:14 05/04/23 12:14 05/04/23 12:00 05/04/23 11:59 05/04/23 11:59 05/04/23 11:45 05/04/23 11:44 05/04/23 11:44 05/04/23 11:30 05/04/23 11:29 05/04/23 11:29 05/04/23 11:15 05/04/23 11:14 05/04/23 11:14 05/04/23 11:00 05/04/23 10:59 05/04/23 10:59 05/04/23 10:45 05/04/23 10:44 05/04/23 10:44 05/04/23 10:30 05/04/23 10:29 05/04/23 10:29 05/04/23 10:15 05/04/23 10:00 05/04/23 09:59 05/04/23 09:46 05/04/23 09:46 05/04/23 09:45 05/04/23 09:31 05/04/23 09:31 05/04/23 09:30 05/04/23 09:16 05/04/23 09:16 05/04/23 09:15 05/04/23 09:01 05/04/23 09:01 05/04/23 09:00 05/04/23 08:46 05/04/23 08:46 05/04/23 12:00 40 05/04/23 12:00 05/04/23 08:00 40 05/04/23 08:00 05/04/23 08:00 05/04/23 08:00 05/04/23 08:00 40 05/04/23 10:45 40 05/04/23 07:55 60 05/04/23 05:01 05/04/23 05:01 05/04/23 04:16 05/04/23 03:46 05/04/23 03:01 05/04/23 04:30 40 05/04/23 04:00 60 05/04/23 02:46 05/04/23 02:46 05/04/23 02:31 05/04/23 02:31 05/04/23 02:16 05/04/23 02:01 05/04/23 01:46 05/04/23 01:31 05/04/23 01:16 05/04/23 02:51 40 05/04/23 02:51 Laboratory Results Laboratory Results - last 24 hr 05/03/23 05/03/23 05/03/23 16:27 17:52 22:23 WBC RBC Hgb POC Hgb Hct POC Hct MCV MCH MCHC RDW Std Deviation RDW Coeff of Brittany Plt Count MPV Immature Gran % (Auto) Neut % (Auto) Lymph % (Auto) [place] % (Auto) Eos % (Auto) Baso % (Auto) Neut # (Auto) Lymph # (Auto) [place] # (Auto) Eos # (Auto) Baso # (Auto) Immature Gran # (Auto) PT INR APTT 73.3 H* PTT Ratio 2.6 Sample Site POC pH POC pCO2 POC pO2 POC HCO3 POC Total CO2 POC Base Excess ABG pH ABG pH (Temp Correct) ABG pCO2 ABG pCO2 (Temp Corrct ABG pO2 POC ABG pO2 at Pt Temp ABG HCO3 POC ABG O2 Sat ABG O2 Saturation ABG Base Excess Rush Test Oxygen Given O2 Delivery Device POC O2 Rate POC FiO2 Tidal Volume PEEP POC Sodium Sodium 139 POC Potassium Potassium 3.8 Chloride 101 Carbon Dioxide 33 H Anion Gap 5 BUN 17 Creatinine 1.18 Est Cr Clr Drug Dosing 94.8 Est GFR ( Amer) 56.8 Est GFR (Non-Af Amer) 49.0 BUN/Creatinine Ratio 14.4 Glucose 124 H POC Glucose 91 POC Glucose (other) Calcium 8.8 Phosphorus Magnesium C-Reactive Protein 05/04/23 05/04/23 05/04/23 02:47 04:52 04:52 WBC 6.63 RBC 3.99 L Hgb 11.4 L POC Hgb Hct 36.0 L POC Hct MCV 90.2 MCH 28.6 MCHC 31.7 L RDW Std Deviation 63.0 H RDW Coeff of Brittany 19.6 H Plt Count 158 MPV 10.8 Immature Gran % (Auto) 0.8 Neut % (Auto) 78.5 Lymph % (Auto) 8.6 [place] % (Auto) 9.8 Eos % (Auto) 1.2 Baso % (Auto) 1.1 Neut # (Auto) 5.21 Lymph # (Auto) 0.57 L [place] # (Auto) 0.65 H Eos # (Auto) 0.08 Baso # (Auto) 0.07 Immature Gran # (Auto) 0.05 PT INR APTT PTT Ratio Sample Site POC pH POC pCO2 POC pO2 POC HCO3 POC Total CO2 POC Base Excess ABG pH ABG pH (Temp Correct) ABG pCO2 ABG pCO2 (Temp Corrct ABG pO2 POC ABG pO2 at Pt Temp ABG HCO3 POC ABG O2 Sat ABG O2 Saturation ABG Base Excess Rush Test Oxygen Given O2 Delivery Device POC O2 Rate POC FiO2 Tidal Volume PEEP POC Sodium Sodium 138 POC Potassium Potassium 3.7 Chloride 100 Carbon Dioxide 32 Anion Gap 6 BUN 17 Creatinine 1.18 Est Cr Clr Drug Dosing 94.8 Est GFR ( Amer) 56.8 Est GFR (Non-Af Amer) 49.0 BUN/Creatinine Ratio 14.4 Glucose 149 H POC Glucose 96 POC Glucose (other) Calcium 8.8 Phosphorus 3.7 Magnesium 1.7 C-Reactive Protein 11.71 H 05/04/23 05/04/23 05/04/23 04:52 10:15 10:18 WBC RBC Hgb POC Hgb 13.9 Hct POC Hct 41 MCV MCH MCHC RDW Std Deviation RDW Coeff of Brittany Plt Count MPV Immature Gran % (Auto) Neut % (Auto) Lymph % (Auto) [place] % (Auto) Eos % (Auto) Baso % (Auto) Neut # (Auto) Lymph # (Auto) [place] # (Auto) Eos # (Auto) Baso # (Auto) Immature Gran # (Auto) PT 14.6 H INR 1.4 H APTT 53.7 H* PTT Ratio 1.9 Sample Site Art Line POC pH 7.32 L POC pCO2 61 H POC pO2 306 H POC HCO3 32 H POC Total CO2 34 H POC Base Excess 6.0 H ABG pH ABG pH (Temp Correct) 7.333 L ABG pCO2 ABG pCO2 (Temp Corrct 59 H ABG pO2 POC ABG pO2 at Pt Temp 303 ABG HCO3 POC ABG O2 Sat 100.0 H ABG O2 Saturation ABG Base Excess Rush Test NA Oxygen Given O2 Delivery Device Ventilator POC O2 Rate 18 POC FiO2 100 Tidal Volume 330 PEEP 15 POC Sodium 138 Sodium 137 POC Potassium 4.8 Potassium 4.9 D Chloride 101 Carbon Dioxide 33 H Anion Gap 3 BUN 17 Creatinine 1.27 H Est Cr Clr Drug Dosing 88.1 Est GFR ( Amer) 52.0 Est GFR (Non-Af Amer) 44.9 BUN/Creatinine Ratio 13.4 Glucose 221 H POC Glucose POC Glucose (other) Calcium 12.0 H D Phosphorus 4.2 Magnesium 1.9 C-Reactive Protein 05/04/23 05/04/23 10:18 12:37 WBC RBC Hgb POC Hgb Hct POC Hct MCV MCH MCHC RDW Std Deviation RDW Coeff of Brittany Plt Count MPV Immature Gran % (Auto) Neut % (Auto) Lymph % (Auto) [place] % (Auto) Eos % (Auto) Baso % (Auto) Neut # (Auto) Lymph # (Auto) [place] # (Auto) Eos # (Auto) Baso # (Auto) Immature Gran # (Auto) PT INR APTT PTT Ratio Sample Site POC pH POC pCO2 POC pO2 POC HCO3 POC Total CO2 POC Base Excess ABG pH 7.24 L ABG pH (Temp Correct) ABG pCO2 75 H ABG pCO2 (Temp Corrct ABG pO2 86 POC ABG pO2 at Pt Temp ABG HCO3 32 H POC ABG O2 Sat ABG O2 Saturation 96.4 H ABG Base Excess 2.4 H Rush Test Pos Oxygen Given 6 O2 Delivery Device POC O2 Rate POC FiO2 Tidal Volume PEEP POC Sodium Sodium POC Potassium Potassium Chloride Carbon Dioxide Anion Gap BUN Creatinine Est Cr Clr Drug Dosing Est GFR ( Amer) Est GFR (Non-Af Amer) BUN/Creatinine Ratio Glucose POC Glucose POC Glucose (other) 159 H Calcium Phosphorus Magnesium C-Reactive Protein
[2023-05-04] MEDS: NOREPINEPHRINE/D5W 4 MG/250 ML PLCT IV SCH (13:22)
--- NOTE | 2023-05-04 16:32 | Hospitalist Progress Note ---
Date of Service May 04, 2023 Assessment & Plan (1) Respiratory failure with hypercapnia: Plan: Acute respiratory failure with hypoxia and hypercapnia Acute cor pulmonale COVID-19 Pneumonia, adenovirus H/O Interstitial lung disease, pulmonary hypertension, OHS/CHELI Septic Shock: Due to above Lactic acidosis Valvular heart disease (moderate TR, mild MR from TTE 2017) Abnormal blood cultures--likely contaminant --Biofire: + Adenovirus, COVID 19 --Normal procalcitonin -- Transesophageal ECHO: Left ventricle is normal in size. Mild concentric LVH. No regional wall motion abnormalities noted. Flattened septum is consistent with RV pressure/volume overload. EF 50 to 50%. There is massive right atrial enlargement. Right ventricle is severely dilated. Moderate to severe right ventricular hypertrophy. Right ventricle systolic function is moderately reduced. Tricuspid annulus is dilated leaflets appear freely mobile. Severe tricuspid regurgitation. Right ventricular systolic pressure is severely elevated at > 60 mmHg. --Venous Doppler:Near nondiagnostic examination secondary to patient body habitus and edema. The bilateral common femoral and proximal superficial femoral veins are patent. Mid to distal superficial femoral veins and popliteal veins are not definitively delineated. Subcutaneous edema noted involving both lower extremities. --Blood cultures /: Coagulase-negative staph not lugdunensis -- Wound cultures growing gram-negative bacilli --S/P Intubation 05/02/23 -Status post emergent bronchoscopy secondary to acute obstruction which revealed excessive dynamic airway collapse. Per pulmonology, there is significant component of pickwickian syndrome and presumptive hypoxia driving the right- sided heart failure. Empiric anticoagulation discontinued per house wirer helper given increased bleeding risk at this point. Also empiric antibiotics discontinued per pulmonology -- She remains critically ill on pressors and mechanical ventilation. Being managed by house wirer helper and cardiology and ICU. Chest x-ray this morning with interval development of complete left hemithorax opacification, possibly from mucous plugging and atelectasis/collapse. Per pulmonology, she had code this morning and was stabilized. Further management per house wirer helper and cardiology. Atrial flutter-stable, status post heparin drip, on metoprolol. Cardiology managing Decubitus wounds- Follow-up wound cultures, Continue wound care, defer need for antibiotics to house wirer helper Morbid Obesity - BMI 89 Hypertension--now with hypotension requiring pressors DM II Diet-controlled. HbA1C: 7.0. Monitor BGs. Continue insulin per protocol GERD--Continue PPI Chronic lymphedema Functional disability DVT px- Lovenox SQ Code Status-Full code, May need to readdress goals of care. Admission and Anticipated Discharge Date Admission Date: May 02, 2023 Subjective Patient was seen and examined at bedside. She had CODE BLUE this morning and I was there in the patient room with the house wirer helper during the event. She remains critically ill. She remains sedated, intubated on mechanical ventilation and on pressors. No fever noted. Review of Systems Review of Systems: Unobtainable due to reduced consciousness Physical Exam Physical Exam: General: Critically ill, morbidly obese female, on mechanical ventilation HEEMT: Atraumatic Respiratory: On mechanical ventilation CVS: Irregular, normal heart sounds Abdomen: Soft, not distended Neuro: Sedated Extremities: Edema + Results & Data Results & Data Vital Signs (Past 12 Hours) Vital Signs Temp Pulse Resp BP Pulse Ox Pulse Ox O2 Del Method 05/04/23 16:00 37.1 C 74 18 97 05/04/23 15:59 37.1 C 72 18 96 05/04/23 15:59 127/72 05/04/23 15:45 37.1 C 70 18 96 05/04/23 15:44 113/77 05/04/23 15:44 37.1 C 67 18 05/04/23 15:30 37.1 C 72 18 97 05/04/23 15:29 37.1 C 74 18 97 05/04/23 15:29 113/82 05/04/23 16:00 05/04/23 16:00 98 05/04/23 16:00 74 05/04/23 16:00 74 05/04/23 15:15 37.1 C 74 18 97 05/04/23 15:14 37.2 C 72 18 97 05/04/23 15:14 118/79 05/04/23 15:00 37.2 C 66 18 98 05/04/23 14:59 37.2 C 68 18 96 05/04/23 14:59 119/85 05/04/23 14:45 37.2 C 71 18 97 05/04/23 14:44 37.1 C 72 18 96 05/04/23 14:44 102/80 05/04/23 14:30 37.1 C 74 7 L 95 05/04/23 14:29 114/74 05/04/23 14:29 37.1 C 74 8 L 05/04/23 14:15 37.1 C 72 18 98 05/04/23 14:14 37.1 C 74 18 97 05/04/23 14:14 134/98 05/04/23 14:00 37.1 C 74 18 98 05/04/23 13:59 149/89 H 05/04/23 13:59 37.1 C 74 18 97 05/04/23 13:45 37.1 C 74 18 96 05/04/23 13:44 37.1 C 74 18 96 05/04/23 13:30 37.1 C 74 18 97 05/04/23 13:29 37.1 C 74 18 100 05/04/23 13:29 103/71 05/04/23 13:15 37.0 C 72 18 96 05/04/23 13:14 37.0 C 74 18 05/04/23 13:14 115/84 05/04/23 13:00 37.0 C 74 18 96 05/04/23 14:38 74 18 98 05/04/23 12:59 37.0 C 74 18 05/04/23 12:59 124/94 05/04/23 12:45 37.0 C 74 6 L 96 05/04/23 12:44 96/74 L 05/04/23 12:44 37.0 C 74 7 L 05/04/23 12:30 37.0 C 74 7 L 95 05/04/23 12:29 37.0 C 74 7 L 88 L 05/04/23 12:15 36.9 C 74 6 L 90 05/04/23 12:14 36.9 C 74 7 L 05/04/23 12:14 113/93 05/04/23 12:00 36.9 C 74 19 94 05/04/23 11:59 36.8 C 74 19 94 05/04/23 11:59 135/86 05/04/23 11:45 36.8 C 62 18 94 05/04/23 11:44 36.8 C 59 L 17 05/04/23 11:44 137/100 05/04/23 11:30 36.7 C 73 0 L 95 05/04/23 11:29 36.7 C 73 8 L 91 05/04/23 11:29 111/78 05/04/23 11:15 36.6 C 73 8 L 92 05/04/23 11:14 124/91 05/04/23 11:14 36.6 C 73 8 L 93 05/04/23 11:00 36.5 C 73 8 L 93 05/04/23 10:59 36.5 C 73 6 L 05/04/23 10:59 122/90 05/04/23 10:45 36.5 C 72 11 L 97 05/04/23 10:44 146/105 H 05/04/23 10:44 36.5 C 72 10 L 96 05/04/23 10:30 36.4 C L 72 9 L 91 05/04/23 10:29 36.4 C L 66 11 L 05/04/23 10:29 156/85 H 05/04/23 10:15 36.3 C L 70 22 85 L 05/04/23 10:00 36.2 C L 59 L 17 05/04/23 09:59 36.2 C L 67 1 L 05/04/23 09:46 36.1 C L 61 18 93 05/04/23 09:46 96/74 L 05/04/23 09:45 36.1 C L 58 L 18 93 05/04/23 09:31 36.1 C L 56 L 18 97 05/04/23 09:31 94/65 L 05/04/23 09:30 36.1 C L 39 L 18 97 05/04/23 09:16 36.1 C L 74 18 97 05/04/23 09:16 107/81 05/04/23 09:15 36.1 C L 74 22 97 05/04/23 09:01 109/69 05/04/23 09:01 36.0 C L 74 18 97 05/04/23 09:00 36.0 C L 74 18 97 05/04/23 08:46 36.0 C L 74 18 05/04/23 08:46 117/70 05/04/23 12:00 05/04/23 12:00 91 H 05/04/23 08:00 05/04/23 08:00 05/04/23 08:00 91 H 05/04/23 08:00 68 05/04/23 08:00 Mechanical Vent 05/04/23 10:45 91 H 10 L 90 05/04/23 07:55 74 18 98 05/04/23 05:01 36.4 C L 73 18 109/80 96 05/04/23 05:01 109/80 05/04/23 04:16 36.3 C L 74 18 103/78 94 05/04/23 04:30 O2 Del Method FiO2 05/04/23 16:00 05/04/23 15:59 05/04/23 15:59 05/04/23 15:45 05/04/23 15:44 05/04/23 15:44 05/04/23 15:30 05/04/23 15:29 05/04/23 15:29 05/04/23 16:00 40 05/04/23 16:00 Mechanical Vent 05/04/23 16:00 05/04/23 16:00 05/04/23 15:15 05/04/23 15:14 05/04/23 15:14 05/04/23 15:00 05/04/23 14:59 05/04/23 14:59 05/04/23 14:45 05/04/23 14:44 05/04/23 14:44 05/04/23 14:30 05/04/23 14:29 05/04/23 14:29 05/04/23 14:15 05/04/23 14:14 05/04/23 14:14 05/04/23 14:00 05/04/23 13:59 05/04/23 13:59 05/04/23 13:45 05/04/23 13:44 05/04/23 13:30 05/04/23 13:29 05/04/23 13:29 05/04/23 13:15 05/04/23 13:14 05/04/23 13:14 05/04/23 13:00 05/04/23 14:38 40 05/04/23 12:59 05/04/23 12:59 05/04/23 12:45 05/04/23 12:44 05/04/23 12:44 05/04/23 12:30 05/04/23 12:29 05/04/23 12:15 05/04/23 12:14 05/04/23 12:14 05/04/23 12:00 05/04/23 11:59 05/04/23 11:59 05/04/23 11:45 05/04/23 11:44 05/04/23 11:44 05/04/23 11:30 05/04/23 11:29 05/04/23 11:29 05/04/23 11:15 05/04/23 11:14 05/04/23 11:14 05/04/23 11:00 05/04/23 10:59 05/04/23 10:59 05/04/23 10:45 05/04/23 10:44 05/04/23 10:44 05/04/23 10:30 05/04/23 10:29 05/04/23 10:29 05/04/23 10:15 05/04/23 10:00 05/04/23 09:59 05/04/23 09:46 05/04/23 09:46 05/04/23 09:45 05/04/23 09:31 05/04/23 09:31 05/04/23 09:30 05/04/23 09:16 05/04/23 09:16 05/04/23 09:15 05/04/23 09:01 05/04/23 09:01 05/04/23 09:00 05/04/23 08:46 05/04/23 08:46 05/04/23 12:00 40 05/04/23 12:00 05/04/23 08:00 40 05/04/23 08:00 Mechanical Vent 05/04/23 08:00 05/04/23 08:00 05/04/23 08:00 40 05/04/23 10:45 40 05/04/23 07:55 60 05/04/23 05:01 05/04/23 05:01 05/04/23 04:16 05/04/23 04:30 40 Laboratory Results Short CBC 05/04/23 Range/Units 04:52 WBC 6.63 (4.8-10.8) K/ul Hgb 11.4 L (12.0-16.0) g/dl Hct 36.0 L (37.0-47.0) % Plt Count 158 (130-400) K/uL BMP 1005/04/23 05/04/23 16:27 04:52 10:18 Sodium 139 138 137 Potassium 3.8 3.7 4.9 D Chloride 101 100 101 Carbon Dioxide 33 H 32 33 H BUN 17 17 17 Creatinine 1.18 1.18 1.27 H Glucose 124 H 149 H 221 H Calcium 8.8 8.8 12.0 H D Diagnostic Findings Chest X-Ray 05/03/23 23:18 XR chest 1V portable HISTORY: 62 years-old Female eval ett placement, eval for pneumothorax acute respiratory failure COMPARISON: 05/03/2023 at 1:36 PM TECHNIQUE: AP view of the chest FINDINGS: Endotracheal tube overlies the midline, 3.2 cm superior to the emilee. Enteric tube courses into the stomach with distal tip outside the [id number]. Right IJ central venous catheter is noted with distal tip in the expected location of the upper SVC. Cardiomegaly. No pneumothorax. Probable small pleural effusions with mild persistent bibasilar densities. Pulmonary vascular congestion. Bones appear grossly intact. IMPRESSION: 1. Lines and tubes as above. 2. Cardiomegaly with pulmonary vascular congestion and small pleural effusions. 3. Mild persistent bibasilar opacities. ACT 112: Negative or not required by law. The above report was generated using voice recognition software. It may contain grammatical, syntax or spelling errors. Electronically signed by: Juan Manuel Rodriguez M.D. 05/04/2023 7:19 AM Chest X-Ray 05/04/23 01:07 XR chest 1V portable HISTORY: evaluate new ETT and OGT placement COMPARISON: Chest 05/03/2023. FINDINGS: Rotated study. The endotracheal tube appears to terminate approximately 2 cm from the emilee. A nasogastric tube terminates below the diaphragm. The tip is not included on this study. There are low lung volumes. The cardiac silhouette remains enlarged. No pneumothorax. Suspect trace bilateral pleural effusions. There is mild central pulmonary vascular congestion without overt edema. Left retrocardiac density persists. There are calcifications within the mitral annulus. Right perihilar densities are again noted. The central pulmonary arteries appear enlarged. IMPRESSION: 1. Satisfactory support line placement. 2. Cardiomegaly and mild pulmonary vascular congestion persists. 3. Trace bilateral pleural effusions again noted. Left retrocardiac density and a right perihilar hazy airspace opacity persist. ACT 112: Negative or not required by law. Electronically signed by: Ramiro Rodrigues M.D. 05/04/2023 8:03 AM Chest X-Ray 05/04/23 06:00 XR chest 1V portable HISTORY: 62 years-old Female intubation acute respiratory failure COMPARISON: 05/04/2023 at 1:23 AM TECHNIQUE: AP view of the chest FINDINGS: Endotracheal tube overlies the midline, 2.9 cm superior to the emilee. Enteric tube courses into the stomach with distal tip outside the [id number]. Right IJ central venous catheter is noted with distal tip in the expected location of the upper SVC. Cardiomegaly. No pneumothorax. Probable small right pleural effusion. Interval development of complete opacification of the left hemithorax Pulmonary vascular congestion. Bones appear grossly intact. IMPRESSION: 1. Lines and tubes as above. 2. Interval development of complete left hemithorax opacification, possibly from mucous plugging and atelectasis/collapse. Follow-up recommended. 3. No pneumothorax identified. ACT 112: Negative or not required by law. The above report was generated using voice recognition software. It may contain grammatical, syntax or spelling errors. Electronically signed by: Juan Manuel Rodriguez M.D. 05/04/2023 8:00 AM Medications Administered Current Inpatient Medications Acetaminophen (Acetaminophen 325 Mg Tab) 650 mg PO Q4H PRN PRN Reason: Pain or Fever Stop: 06/01/23 05:18 Albuterol (Albut/Ipratrop 3mg/0.5mg Neb 3 Ml Vial) 3 ml INH Q4 PRN; Protocol PRN Reason: cough,SOB,wheezing Stop: 06/01/23 10:41 Aspirin (Aspirin 81 Mg Chew) 81 mg PO QAM NATO Stop: 06/02/23 10:59 Last Admin: 05/04/23 08:56 Dose: 81 mg Dextrose (Dextrose 50% 50 Ml Syringe) 25 - 50 ml IV UD PRN; Protocol PRN Reason: Hypoglycemia Protocol Stop: 06/01/23 05:18 Duloxetine HCl (Duloxetine Hcl 30 Mg Cap) 30 mg PO QAM NATO Stop: 06/01/23 08:59 Last Admin: 05/03/23 08:42 Dose: Not Given Fentanyl Citrate (Fentanyl Bolus From Bag) 50 mcg IV Q60M PRN PRN Reason: Pain or Agitation Stop: 05/16/23 11:23 Furosemide (Furosemide 40 Mg/4 Ml Vial) 40 mg IV BID17 COUNT INCLUDES THE [facility] Stop: 06/01/23 08:59 Last Admin: 05/04/23 08:58 Dose: 40 mg Glucagon (Glucagon For Inj 1 Mg Vial) 1 mg SQ UD PRN; Protocol PRN Reason: Hypoglycemia Protocol Stop: 06/01/23 05:18 Glucose (Glucose 40% Gel 15 Gm Tube) 15 - 30 gm PO UD PRN; Protocol PRN Reason: Hypoglycemia Protocol Stop: 06/01/23 05:18 Glucose (Glucose 10 Tab/Tube) 4 - 8 tab PO UD PRN; Protocol PRN Reason: Hypoglycemia Treatment Stop: 06/01/23 05:18 Fentanyl Citrate (Fentanyl Citrate) 2,500 mcg in 250 mls @ 10 mls/hr IV .Q25H NATO; Protocol Stop: 05/16/23 11:29 Last Admin: 05/04/23 13:27 Dose: Not Given Midazolam HCl (Versed) 125 mg in 250 mls @ 2 mls/hr IV .Q96H COUNT INCLUDES THE [facility]; Protocol Stop: 06/01/23 13:14 Last Titration: 05/04/23 11:20 Dose: 0 mg/hr, 0 mls/hr Pantoprazole Sodium 40 mg/ (Syringe) 10 mls @ 5 mls/min IV DAILY@1100 COUNT INCLUDES THE [facility] Stop: 06/02/23 10:59 Last Admin: 05/04/23 12:17 Dose: 5 mls/min Norepinephrine Bitartrate (Levophed/D5w) 32 mg in 250 mls @ 8.46 mls/hr IV .Q24H COUNT INCLUDES THE [facility]; Protocol Stop: 06/03/23 10:14 Last Titration: 05/04/23 15:43 Dose: 0.08 mcg/kg/min, 8.5 mls/hr Insulin Aspart (Insulin Aspart Per Unit Charge) 0 units SC Q6 COUNT INCLUDES THE [facility] Stop: 06/02/23 00:00 Last Admin: 05/04/23 13:23 Dose: 1 units Losartan Potassium (Losartan Potassium 50 Mg Tab) 100 mg PO QPM COUNT INCLUDES THE [facility] Stop: 06/01/23 20:59 Last Admin: 05/02/23 21:28 Dose: Not Given Metoprolol Tartrate (Metoprolol Tartrate 25 Mg Tab) 12.5 mg PO BID COUNT INCLUDES THE [facility] Stop: 06/01/23 08:59 Last Admin: 05/04/23 08:56 Dose: 12.5 mg Midazolam HCl (Midazolam Bolus From Bag) 2 mg IV Q60M PRN PRN Reason: Sedation Stop: 06/01/23 13:10 Last Admin: 05/03/23 11:27 Dose: 2 mg Miscellaneous (Carbohydrates For Hypoglycemia ) 15 - 30 gm PO UD PRN PRN Reason: Hypoglycemia Protocol Stop: 06/01/23 05:18 Montelukast Sodium (Montelukast Sodium 10 Mg Tablet) 10 mg PO HS COUNT INCLUDES THE [facility] Stop: 06/01/23 20:59 Last Admin: 05/02/23 21:28 Dose: Not Given Multivitamins/Minerals (Multi Vit W/Minerals Liquid 15 Ml Udp) 15 ml PO QAM COUNT INCLUDES THE [facility] Stop: 06/02/23 09:29 Last Admin: 05/04/23 08:56 Dose: 15 ml Nitroglycerin (Nitroglycerin Sl 0.4 Mg/Tab Tab) 0.4 mg SL Q5M PRN PRN Reason: Chest Pain Stop: 06/01/23 05:18 Nutritional Formula (Peptamen Intense Vhp 1.0 Portillo 1,000 Ml Bag) 1,000 ml OG .See Protocol NATO; Protocol Stop: 06/02/23 14:14 Last Admin: 05/03/23 15:21 Dose: 1,000 ml Pantoprazole Sodium (Pantoprazole 40 Mg Tab) 40 mg PO DAILYBB COUNT INCLUDES THE [facility] Stop: 06/01/23 06:29 Last Admin: 05/03/23 06:27 Dose: Not Given Rosuvastatin Calcium (Rosuvastatin Calcium 10 Mg Tab) 10 mg PO QAM COUNT INCLUDES THE [facility] Stop: 06/01/23 08:59 Last Admin: 05/04/23 10:28 Dose: 10 mg Sterile Water (Tube Feeding Water Flush) 30 ml OG Q4H COUNT INCLUDES THE [facility] Stop: 06/02/23 14:29 Last Admin: 05/04/23 15:49 Dose: 30 ml
--- NOTE | 2023-05-04 16:36 | Communication Note ---
Date of Service: May 04, 2023 Update 1630 had extensive discussion with the patient's and daughter at bedside. Additional history from the patient's is that the patient has near total dependence CPAP device. She would be off for what the estimates of maximum 3 hours to eat and talk on the phone. He is unsure of her exact settings with regards to pressures. In terms of mobility reports he facilitates her to get her legs on the edge of the bed and she is able to sit in order to eat and then due to pressure her legs go numb in which she returns to the recumbent position. Beyond standing she is not been mobile independently. We discussed several different options of trying to liberate from the ventilator, given her body habitus and difficulty with tube exchange I do not feel it is safe to extubate to noninvasive ventilator and the patient would benefit from a surgical tracheostomy. We do not have ENT surgical coverage at the present moment and all have been instructed to refer to the [facility] ENT service. Is also the patient's family's preference to receive care at [facility]. With regarding heroic efforts in event of cardiac arrest family desires patient to remain full code. I discussed the case with Dr. [facility]idalgo [facility] intensive care unit who will be excepting. We discussed the patient's anatomy with [employer] and she is not able to be flown, therefore we will have the ground critical care transport team of [facility] transport the patient. I have personally spent 30 minutes of critical care time in the direct management of this patient. This is a life/limb threatening event. This includes time spent evaluating patient, direct bedside care, chart review, placing orders, interpretation of diagnostic studies, discussion with consultants, patient, and/or family members regarding treatment decisions, as well as other required patient management activities. This time is exclusive of all separately billable procedures, and teaching time and separate from and in addition to any other critical care service time. Coding Level of Care Code 88871 CRITICAL CARE EA ADD 30M
[2023-05-04] MEDS ORDERED: VECURONIUM BROMIDE 10 MG VIAL IV PRN (21:53)
[2023-05-04] MEDS ORDERED: SODIUM CHLORIDE 0.9% 10ML FLUSH IV ONE (23:09)
[2023-05-04] MEDS ORDERED: CALCIUM CHLORIDE 10% 10 ML SYR IV ONE (23:09)
--- NOTE | 2023-05-05 08:57 | Discharge Summary ---
Date of Service May 04, 2023 Admission HPI Per Admitting Provider History obtained from patient, family, and records. Medical history significant for hypertension, hyperlipidemia, pulmonary hypertension, valvular heart disease (moderate TR, mild MR from TTE 2017), CHELI/OHS on CPAP, ILD, DM 2 diet-controlled, GERD, chronic lymphedema as per records, morbid obesity. Last confinement 2015 for respiratory failure secondary to bilateral pneumonia. Patient has not been able to leave the house the last 3 years due to arthritis issues, mobility, and progressive fluid retention. Last PCP visit January 2020. Last communication with [facility] Sleep medicine was April 2020. Patient noted to have significantly low oxygen levels overnight on CPAP. BiPAP recommended by specialist following titration study in the sleep lab. Patient unable to comply with recommendations. Progressive fluid retention over the last few years. Last month, patient noted shortness of breath at rest. Usual junky cough symptoms. No chest pain. Patient noted to have bedsores with some drainage. No fever, no chills. No consultations done. Patient brought to ER for worsening symptoms. IV cefepime and Lasix administered at the ER. BiPAP initiated at the ER. [id number] ABG done at the ER. 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 Admission Exam Per Admitting Provider GENERAL: Slightly uncomfortable, morbidly obese, generalized anasarca, no respiratory distress SKIN: Normal color, warm HEENT: [place] palpebral conjunctivae, puffy eyelids, moist buccal mucosa, BiPAP in place NECK : Supple, short neck, no tenderness CHEST : Decreased breath sounds, no tenderness HEART : RRR, no obvious murmurs ABDOMEN: Marked distention, nontender EXTREMITIES : Bilateral LE swelling, no LE tenderness, no other conspicuous deformities noted NEUROLOGIC : Coherent, no facial asymmetry, no other gross focality Principal Diagnosis Acute respiratory failure with hypoxia and hypercarbia, acute cor pulmonale, atrial flutter, hypotension on pressors, covid/adenovirus positive, viral pneumonia, morbid obesity with CHELI/OHS Discharge Exam See exam findings from the progress note earlier in the day Discharge Data Allergies Allergy/AdvReac Type Severity Reaction Status Date / Time Penicillins Allergy Mild RASH Verified 08/21/18 07:52 latex Allergy Unknown rash Verified 08/21/18 07:52 Consultations 05/02/23 02:41 ED Decision to Admit Stat 05/02/23 05:19 Consult Cardiology Routine Consult Pulmonology Routine 05/02/23 10:42 Consult Legal Receptionist Routine Ordered Studies 05/02/23 13:49 CT angio chest PE protocol Stat 05/02/23 13:50 US venous doppler LE BI Routine Laboratory Results WBC 6.63 K/ul (4.8-10.8) 05/04/23 04:52 RBC 3.99 M/uL (4.20-5.40) L 05/04/23 04:52 Hgb 11.4 g/dl (12.0-16.0) L 05/04/23 04:52 POC Hgb 13.9 g/dl (12.0-16.0) 05/04/23 10:15 Hct 36.0 % (37.0-47.0) L 05/04/23 04:52 POC Hct 41 % (37-47) 05/04/23 10:15 MCV 90.2 fL (80.0-100.0) 05/04/23 04:52 MCH 28.6 pg (25.0-34.0) 05/04/23 04:52 MCHC 31.7 g/dL (32.0-36.0) L 05/04/23 04:52 RDW Std Deviation 63.0 fL (36.4-46.3) H 05/04/23 04:52 RDW Coeff of Brittany 19.6 % (11.5-14.5) H 05/04/23 04:52 Plt Count 158 K/uL (130-400) 05/04/23 04:52 MPV 10.8 fL (9.4-12.4) 05/04/23 04:52 Immature Gran % (Auto) 0.8 % 05/04/23 04:52 Neut % (Auto) 78.5 % 05/04/23 04:52 Lymph % (Auto) 8.6 % 05/04/23 04:52 [place] % (Auto) 9.8 % 05/04/23 04:52 Eos % (Auto) 1.2 % 05/04/23 04:52 Baso % (Auto) 1.1 % 05/04/23 04:52 Neut # (Auto) 5.21 K/uL (1.40-6.50) 05/04/23 04:52 Lymph # (Auto) 0.57 K/uL (1.20-3.40) L 05/04/23 04:52 [place] # (Auto) 0.65 K/uL (0.11-0.59) H 05/04/23 04:52 Eos # (Auto) 0.08 K/uL (0.00-0.50) 05/04/23 04:52 Baso # (Auto) 0.07 K/uL (0.00-0.20) 05/04/23 04:52 Immature Gran # (Auto) 0.05 K/uL (0.01-0.20) 05/04/23 04:52 Absolute Nucleated RBC 0.02 K/uL (0.00-0.12) 05/03/23 03:43 Nucleated RBC % (auto) 0.3 % 05/03/23 03:43 PT 14.6 Seconds (9.0-12.0) H 05/04/23 04:52 INR 1.4 (0.9-1.1) H 05/04/23 04:52 APTT 53.7 Seconds (21.0-31.0) H* 05/04/23 04:52 PTT Ratio 1.9 05/04/23 04:52 Sample Site Art Line 05/04/23 10:15 POC pH 7.32 (7.35-7.45) L 05/04/23 10:15 POC pCO2 61 mmHg (35-46) H 05/04/23 10:15 POC pO2 306 mmHg (80-95) H 05/04/23 10:15 POC HCO3 32 emerald/L (19-24) H 05/04/23 10:15 POC Total CO2 34 mmol/L (24-31) H 05/04/23 10:15 POC Base Excess 6.0 emerald/L (-9-1.8) H 05/04/23 10:15 ABG pH 7.24 (7.35-7.45) L 05/04/23 10:18 ABG pH (Temp Correct) 7.333 (7.35-7.45) L 05/04/23 10:15 ABG pCO2 75 mmHg (35-46) H 05/04/23 10:18 ABG pCO2 (Temp Corrct 59 mmHg (35-46) H 05/04/23 10:15 ABG pO2 86 mmHg (80-95) 05/04/23 10:18 POC ABG pO2 at Pt Temp 303 05/04/23 10:15 ABG HCO3 32 mmol/L (19-24) H 05/04/23 10:18 POC ABG O2 Sat 100.0 % (90-95) H 05/04/23 10:15 ABG O2 Saturation 96.4 % (90-95) H 05/04/23 10:18 ABG Base Excess 2.4 mEq/L (-9-1.8) H 05/04/23 10:18 Rush Test Pos (Pos) 05/04/23 10:18 Oxygen Given 6 05/04/23 10:18 O2 Delivery Device Ventilator 05/04/23 10:15 POC O2 Rate 18 05/04/23 10:15 Minute Ventilation 6 05/02/23 12:36 POC FiO2 100 % 05/04/23 10:15 Tidal Volume 330 05/04/23 10:15 PEEP 15 05/04/23 10:15 POC Sodium 138 mmol/L (135-144) 05/04/23 10:15 Sodium 137 mmol/L (136-145) 05/04/23 10:18 POC Potassium 4.8 mmol/L (3.3-5.0) 05/04/23 10:15 Potassium 4.9 mmol/L (3.5-5.1) D 05/04/23 10:18 POC Chloride 99 mmol/L (101-112) L 05/02/23 01:52 Chloride 101 mmol/L (98-107) 05/04/23 10:18 Carbon Dioxide 33 mmol/L (21-32) H 05/04/23 10:18 POC Total CO2 31 mmol/L (24-31) 05/02/23 01:52 Anion Gap 3 (3-11) 05/04/23 10:18 POC Anion Gap 16.0 mmol/L (16-25) 05/02/23 01:52 POC BUN 16 mg/dl (7-18) 05/02/23 01:52 BUN 17 mg/dl (6-23) 05/04/23 10:18 Creatinine 1.27 mg/dl (0.6-1.2) H 05/04/23 10:18 POC Creatinine 1.0 mg/dl (0.6-1.3) 05/02/23 01:52 Est Cr Clr Drug Dosing 88.1 ml/min 05/04/23 10:18 Est GFR ( Amer) 52.0 ml/min 05/04/23 10:18 Est GFR (Non-Af Amer) 44.9 ml/min 05/04/23 10:18 BUN/Creatinine Ratio 13.4 (10-20) 05/04/23 10:18 Glucose 221 mg/dl (70-99(Fasting)) H 05/04/23 10:18 POC Glucose 96 mg/dl (70-99) 05/04/23 02:47 POC Glucose (other) 144 mg/dl (70-99) H 05/04/23 17:28 Estimat Average Glucose 154 mg/dl 05/02/23 01:40 Hemoglobin A1c 7.0 % (4.5-5.6) H 05/02/23 01:40 Lactate 2.3 mmol/L (0.4-2.0) H* 05/02/23 05:11 Calcium 12.0 mg/dl (8.6-10.3) H D 05/04/23 10:18 POC Ioniz Calcium Rashad 1.04 mmol/l (1.12-1.32) L 05/02/23 01:52 Ionized Calcium 1.05 mmol/L (1.12-1.32) L 05/03/23 03:43 Phosphorus 4.2 mg/dl (2.5-4.9) 05/04/23 10:18 Magnesium 1.9 mg/dl (1.7-2.4) 05/04/23 10:18 Total Bilirubin 1.6 mg/dl (0.2-1.0) H 05/03/23 03:43 Direct Bilirubin 0.6 mg/dl (0-0.2) H 05/03/23 03:43 AST 28 U/L (13-39) 05/03/23 03:43 ALT 9 U/L (7-52) 05/03/23 03:43 Alkaline Phosphatase 112 U/L (34-104) H 05/03/23 03:43 Total Creatine Kinase 147 U/L (26-192) 05/02/23 01:40 Total Creatine Kinase Cancelled 05/02/23 01:40 Troponin I High Sens 13.3 pg/ml (0-14) 05/02/23 01:40 Troponin I High Sens Cancelled 05/02/23 01:40 C-Reactive Protein 11.71 mg/dl (0-0.5) H 05/04/23 04:52 B-Natriuretic Peptide 469 pg/ml (0-100) H 05/02/23 01:40 Total Protein 6.8 gm/dl (6.0-8.3) 05/03/23 03:43 Albumin 3.5 gm/dl (3.4-5.0) 05/03/23 03:43 Triglycerides 64 mg/dl (0-150) 05/03/23 03:43 Cholesterol 78 mg/dl (0-200) 05/03/23 03:43 LDL Cholesterol, Calc 38 mg/dl 05/03/23 03:43 VLDL Cholesterol, Calc 13 mg/dl (0-30) 05/03/23 03:43 HDL Cholesterol 27 mg/dl 05/03/23 03:43 Cholesterol/HDL Ratio 2.9 (0-5) 05/03/23 03:43 Lipase 22 U/L (11-82) 05/03/23 03:43 Procalcitonin < 0.05 ng/ml (0-0.5) 05/02/23 01:40 TSH 3.494 uIu/ml (0.300-4.500) 05/02/23 01:40 TSH Cancelled 05/02/23 01:40 Urine Color Yellow 05/02/23 06:35 Urine Appearance Clear (Clear) 05/02/23 06:35 Urine pH 5.0 (4.5-7.5) 05/02/23 06:35 Ur Specific [place] 1.010 (1.000-1.030) 05/02/23 06:35 Urine Protein Negative (Negative) 05/02/23 06:35 Urine Glucose (UA) Negative (Negative) 05/02/23 06:35 Urine Ketones Negative (Negative) 05/02/23 06:35 Urine Blood 1+ (Negative) H 05/02/23 06:35 Urine Nitrite Negative (Negative) 05/02/23 06:35 Urine Bilirubin Negative (Negative) 05/02/23 06:35 Urine Urobilinogen Negative (Negative) 05/02/23 06:35 Ur Leukocyte Esterase Negative (Negative) 05/02/23 06:35 Urine WBC (Auto) 1-5 /hpf (0-5) 05/02/23 06:35 Urine RBC (Auto) 5-10 /hpf (0-4) H 05/02/23 06:35 U Hyaline Cast (Auto) 1-5 /lpf (0-5) 05/02/23 06:35 U Epithel Cells (Auto) >30 /lpf (0-5) H 05/02/23 06:35 Urine Bacteria (Auto) Negative (Negative) 05/02/23 06:35 Nasal Screen MRSA (PCR) Negative (Negative) 05/02/23 10:15 Adenovirus (PCR) DETECTED (NotDetected) A* 05/02/23 Unknown B. pertussis DNA (PCR) Not Detected (NotDetected) 05/02/23 Unknown B.parapertussis DNA PCR Not Detected (NotDetected) 05/02/23 Unknown C. pneumoniae DNA (PCR) Not Detected (NotDetected) 05/02/23 Unknown Coronavirus OC43 (PCR) Not Detected (NotDetected) 05/02/23 Unknown Coronavirus HKU1 (PCR) Not Detected (NotDetected) 05/02/23 Unknown Coronavirus 229E (PCR) Not Detected (NotDetected) 05/02/23 Unknown SARS-CoV-2 (PCR) DETECTED (NotDetected) A* 05/02/23 Unknown Coronavirus NL63 (PCR) Not Detected (NotDetected) 05/02/23 Unknown Human Metapneumovir PCR Not Detected (NotDetected) 05/02/23 Unknown Influenza Type A (PCR) Not Detected (NotDetected) 05/02/23 Unknown Influenza Type B (PCR) Not Detected (NotDetected) 05/02/23 Unknown M. pneumoniae (PCR) Not Detected (NotDetected) 05/02/23 Unknown Parainfluenza 1 (PCR) Not Detected (NotDetected) 05/02/23 Unknown Parainfluenza 2 (PCR) Not Detected (NotDetected) 05/02/23 Unknown Parainfluenza 3 (PCR) Not Detected (NotDetected) 05/02/23 Unknown Parainfluenza 4 (PCR) Not Detected (NotDetected) 05/02/23 Unknown RSV (PCR) Not Detected (NotDetected) 05/02/23 Unknown Entero/Rhino (PCR) Not Detected (NotDetected) 05/02/23 Unknown Staphylococcus sp PCR DETECTED (NotDetected) A 05/02/23 01:40 mecA/C-Methicil Resis Gene DETECTED (NotDetected) A 05/02/23 01:40 Staph epidermidis (PCR) DETECTED (NotDetected) A 05/02/23 01:40 Bld Cult ID Panel PCR See PCR Comment (NotDetected) 05/02/23 01:40 Blood Type O Positive 05/02/23 17:49 Antibody Screen NEGATIVE 05/02/23 17:49 Impressions Venous Doppler Study 05/02/23 13:50 Exam(s): US VENOUS BILATERAL LOWER EXTREMITIES EXAM: US Duplex Bilateral Lower Extremities Veins CLINICAL HISTORY: Reason for exam: r/o dvt. TECHNIQUE: Real-time duplex ultrasound scan of the bilateral lower extremity veins integrating B-mode two-dimensional vascular structure, Doppler spectral analysis, color flow Doppler imaging and compression. COMPARISON: No relevant prior studies available. FINDINGS: Limitations: Evaluation is limited by patient body habitus. Right deep veins: No DVT in the right common femoral or proximal left superficial femoral vein. Mid to distal left superficial femoral and popliteal veins are not well delineated. The calf veins are predominantly obscured.. Right superficial veins: Unremarkable. No thrombus in the saphenofemoral junction. Left deep veins: No DVT in the left common femoral vein or proximal left superficial femoral vein. The mid to distal left superficial femoral and popliteal veins are not well delineated. The calf veins are predominantly obscured. Left superficial veins: Unremarkable. No thrombus in the saphenofemoral junction. Soft tissues: Subcutaneous edema noted throughout the left lower extremity. No popliteal cyst. IMPRESSION: 1. Near nondiagnostic examination secondary to patient body habitus and edema. The bilateral common femoral and proximal superficial femoral veins are patent. Mid to distal superficial femoral veins and popliteal veins are not definitively delineated. 2. Subcutaneous edema noted involving both lower extremities. Electronically signed by: Christoph Adhikari MD 05/03/23 01:25 AM Chest X-Ray 05/04/23 06:00 XR chest 1V portable HISTORY: 62 years-old Female intubation acute respiratory failure COMPARISON: 05/04/2023 at 1:23 AM TECHNIQUE: AP view of the chest FINDINGS: Endotracheal tube overlies the midline, 2.9 cm superior to the emilee. Enteric tube courses into the stomach with distal tip outside the [id number]. Right IJ central venous catheter is noted with distal tip in the expected location of the upper SVC. Cardiomegaly. No pneumothorax. Probable small right pleural effusion. Interval development of complete opacification of the left hemithorax Pulmonary vascular congestion. Bones appear grossly intact. IMPRESSION: 1. Lines and tubes as above. 2. Interval development of complete left hemithorax opacification, possibly from mucous plugging and atelectasis/collapse. Follow-up recommended. 3. No pneumothorax identified. ACT 112: Negative or not required by law. The above report was generated using voice recognition software. It may contain grammatical, syntax or spelling errors. Electronically signed by: Juan Manuel Rodriguez M.D. 05/04/2023 8:00 AM Hospital Course (1) Respiratory failure with hypercapnia: Acute respiratory failure with hypoxia and hypercapnia Acute cor pulmonale COVID-19 Pneumonia, adenovirus H/O Interstitial lung disease, pulmonary hypertension Morbid obesity (BMI 85) with CHELI/OHS Atrial flutter Decubitus ulcer Valvular heart disease (moderate TR, mild MR from TTE 2017) DM-2: Diet controlled. A1c 7 Abnormal blood cultures--likely contaminant --Biofire: + Adenovirus, COVID 19 --Normal procalcitonin -- Transesophageal ECHO: Left ventricle is normal in size. Mild concentric LVH. No regional wall motion abnormalities noted. Flattened septum is consistent with RV pressure/volume overload. EF 50 to 50%. There is massive right atrial enlargement. Right ventricle is severely dilated. Moderate to severe right ventricular hypertrophy. Right ventricle systolic function is moderately reduced. Tricuspid annulus is dilated leaflets appear freely mobile. Severe tricuspid regurgitation. Right ventricular systolic pressure is severely elevated at > 60 mmHg. --Venous Doppler:Near nondiagnostic examination secondary to patient body habitus and edema. The bilateral common femoral and proximal superficial femoral veins are patent. Mid to distal superficial femoral veins and popliteal veins are not definitively delineated. Subcutaneous edema noted involving both lower extremities. --Blood cultures 08/26: Coagulase-negative staph not lugdunensis -- Wound cultures growing gram-negative bacilli- further management at [facility] [place] --S/P Intubation 05/02/23 -Status post emergent bronchoscopy secondary to acute obstruction which revealed excessive dynamic airway collapse. Per pulmonology, there is significant component of pickwickian syndrome and presumptive hypoxia driving the right- sided heart failure. Empiric anticoagulation discontinued per medical payment poster given increased bleeding risk at this point. Also empiric antibiotics discontinued per pulmonology. She remains critically ill on pressors and mechanical ventilation. Chest x-ray this morning with interval development of complete left hemithorax opacification, possibly from mucous plugging and atelectasis/collapse. She had code this morning and was stabilized. Later in the day, Dr Diaz had extensive discussion with her and daughter- deemed unsafe for safe extubation to noninvasive ventilator and recommended surgical tracheostomy, however no ENT service here and hence being transferred to [facility] for tracheostomy and further care. She remains full code. Total Time Total Time Spent Total Time Spent (In Minutes): 31 Discharge Plan Discharge Items Patient Disposition: Transfer Acute Care Hospital Reason For Visit: RESP FAILURE Discharge Diagnosis: Resp failure covid Condition on Discharge: Fair Activity: As commented below Activity Comment: per Leti. Non-emergency contact: Primary Care Provider Call non-emergency contact if: you have any medication questions Follow-up/Referrals: PCP,NO [Primary Care Provider] - Diet: Nothing by Mouth Addtl Attending Provider Instructions: s/p intubation Pending Studies at Discharge: No Stand-Alone Forms: My [facility] Skilled Items Patient informed of condition?: No DNR: No Discharge Level of Care: Other Communicable Disease: Yes Discharge Prognosis: Other Lines: Peripheral IV Urinary Catheter: Yes Medications and DC Order Prescriptions: Continued ipratropium-albuterol 0.5 mg-3 mg(2.5 mg base)/3 mL solution for nebulization 3 ml INHALATION Q4 PRN (Reason: cough,SOB,wheezing) pantoprazole 40 mg tablet,delayed release (DR/EC) 40 mg PO DAILYBB montelukast 10 mg tablet 10 mg PO HS duloxetine 30 mg capsule,delayed release(DR/EC) 30 mg PO QAM aspirin 81 mg Tablet,Delayed Release (Dr/Ec) 81 mg PO DAILY Held losartan 100 mg Tablet 100 mg PO QPM Hold Instructions: Resume on 05/11/23. rosuvastatin [Crestor] 10 mg Tablet 10 mg PO QAM Hold Instructions: Resume on 05/11/23. Discharge Orders: Discharge Order (Routine); Ordered 05/04/23 Ordered By: Ras Dewey/Other Patient Handouts: Managing Type 2 Diabetes Admission Data Admit Date/Time: 05/02/23 04:41 Attending Provider: Luis Armando Hameed Admit Provider: Michael Blackmon Primary Care Provider: PCP,NO Other Providers: Michael Blackmon ; Beth Bernard ; Errol Hooper ; Jarrod Lara ; Gilbert Almodovar ; Jerson Fernandez ; Elmo Roberson ; Isela Martin ; Evette Burton ; Beth Garrido ; Oj Constantino ; Tung Pal ; Nataly Liang ; Madhav Lewis ; Austin Tran ; Imtiaz Smyth ; Elio Rowley ; Addison Nicole ; Joaquin Avalos ; Kiran Young ; Siomara Rod ; Sandy Best ; Devan Arora ; Tariq Hurd ; Fred Diaz ; Travon Joyner
--- NOTE | 2023-05-07 09:00 | Coding Query ---
SEPSIS To promote full compliance with coding requirements relating to patient care, physician participation is requested in all cases of operations associate uncertainty. Please assist us with the question(s) below: The medical record reflects the following clinical findings: Pt admitted with acute on chronic respiratory failiure, intubated and on ventilator. COVID pneumonia and adenovirus . Hospitalist progress notes documented septic shock . Pt transferred to another acute care facility. Please check below, if applicable, the diagnosis that was treated during this Inpatient stay. Thank you. Pravin Hatfield [facility] ____ ( )Bacteremia (Nonspecific laboratory finding of bacteria in the blood) Specify Organism ( ) Present on Admission ( ) Not present on admission ( ) Unable to clinically determine ( ) Septicemia (Systemic disease associated with the presence of pathogenic microorganisms in the blood): Specify Organism ( ) Present on Admission ( ) Not present on admission ( ) Unable to clinically determine ( ) Sepsis Specify Organism Specify Associated Condition/Diagnosis ( ) Present on Admission ( ) Not present on admission ( ) Unable to clinically determine ( ) Severe Sepsis (Sepsis associated with acute organ dysfunction) Specify Organism Specify Associated Condition/Diagnosis ( ) Present on Admission ( ) Not present on admission ( ) Unable to clinically determine ( ) Septic Shock (Severe sepsis with acute circulatory failure, unexplained by other causes) ( ) Present on Admission ( ) Not present on admission ( ) Unable to clinically determine ( X) Other, patient has: positive blood culture with CONS which is likely a contamination, hence empiric antibiotic started on admission were completely discontinued during the hospital stay. CONOR
== END 2023-05-04 23:10 | disposition short-term general hospital (02) | DRG 208 ==
LOC: ED 01:21 → EDINP 04:41 → SUATTDRO 04:41 → 1E 05:17